=== PATIENT | female | born 2005 | race Two or more races ===

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

== ENCOUNTER 2023-03-30 12:09 | Emergency (ER) | payer MEDICAID, SELFPAY ==
[2023-03-30 12:12] VITALS: BP 182/94; PULSE 112; O2SAT 94
[2023-03-30 12:13] VITALS: BP 116/66; PULSE 113; RESP 20; TEMP 37.2; O2SAT 94; BMI 35.4
[2023-03-30] MEDS: Ibuprofen 400 MG TABLET PO (12:58)
[2023-03-30] MEDS: Acetaminophen 325 MG TABLET 975 MG PO (12:58)
[2023-03-30] MEDS: Throat Lozenge, Medicated LOZENGE 1 LOZENGE MUCOUS MEM (12:58)
[2023-03-30 13:00] LABS: COVID-19 Test Negative (Negative); IDNOW Serial# 9DB6401D; IDNOW Serial# BCCEAD1C; Influenza A Negative (Negative); Influenza B2 Negative (Negative)
[2023-03-30 13:12] LABS: IDNOW Serial# 08D9AD1C; Strep A Nucleic Acid Negative (Negative)
--- NOTE | 2023-03-30 14:57 | ED_ITS ---
HPI - General Adult General Chief complaint: Nausea/Vomiting/Diarrhea Stated complaint: WEAK,DIFF BREATHING W/VOMITING,ABD PAIN X'S 2DAYS Time Seen by Provider: 03/30/23 12:25 Source: patient Mode of arrival: ambulatory History of Present Illness HPI narrative: 17-year-old female with presentation for sore throat, cough, nausea and vomiting for the past 2 days but states that she has been feeling unwell for approximately 5-6 days. Related Data Previous Rx's Medication Instructions Recorded ibuprofen 600 mg tablet 600 mg PO Q6H PRN pain #30 tabs 01/10/21 albuterol sulfate 90 mcg/actuation 2 puff inhalation RQ4H PRN 07/09/21 aerosol inhaler (Ventolin HFA) shortness of breath or wheeze 30 days #1 g duloxetine 30 mg capsule,delayed 30 mg PO DAILY 30 days #30 caps 07/09/21 release ferrous sulfate 324 mg (65 mg 324 mg PO DAILY 30 days #30 tabs 07/09/21 iron) tablet,delayed release prazosin 1 mg capsule 4 mg PO BEDTIME 30 days #120 caps 07/09/21 quetiapine 50 mg tablet 50 mg PO BEDTIME 30 days #30 tabs 07/09/21 ondansetron 4 mg disintegrating 4 mg PO Q8H PRN nausea and 03/30/23 tablet vomiting 4 days #10 tabs Allergies Allergy/AdvReac Type Severity Reaction Status Date / Time No Known Allergies Allergy Verified 01/10/21 12:24 Review of Systems Review of Systems: Pertinent positives and negatives as stated in the in the HPI [facility] Past Medical History Source: nursing notes reviewed Medical History Hidradenitis suppurativa Chronic pain Chronic abdominal pain History of COVID-19 Asthma Family History Family History Other Diabetes Social History Social History Household Members: Other Household Members Other:: Aunt, uncle and 3 cousins Housing: House Do you presently have visiting nurse or other home services: No Patient Tobacco Use Status: Never used Tobacco e-Cigarette/Vaping Use: Never Used Second Hand Smoke Exposure: No Substance Use Type: Marijuana Advance Directives: No service: No Sexual orientation: Did not discuss. Physical Exam ED Vital Signs: Vital Signs - 24 hr 03/30/23 12:13 Temperature 98.9 F Pulse Rate 113 H Respiratory Rate 20 Blood Pressure 116/66 Pulse Oximetry 94 Oxygen Delivery Method Room Air BMI result Body Mass Index 35.4 VITAL SIGNS: Reviewed. GENERAL: Well developed, well nourished, in no acute distress. HEAD: Normocephalic/atraumatic EYES: PERRLA, EOMI EARS: Ext canals without abnormality, TMs non-bulging and non-erythematous NOSE: Nares patent bilateral OROPHARYNX: no oral lesions noted, posterior pharynx clear and erythematous with noted tonsillar enlargement/erythema but no exudate NECK: Supple, no adenopathy LUNGS: Normal breath sounds. No adventitious sounds or accessory muscle use. SpO2<94> CARDIOVASCULAR: Regular rate and rhythm without noted murmurs ABDOMEN: Soft, non-tender, non-distended with bowel sounds. MUSCULOSKELETAL: No tenderness, deformities, or effusions noted on gross inspection. EXTREMITIES: No cyanosis, clubbing or edema. SKIN: Inspection of the skin reveals no rashes NEUROLOGIC: Alert and oriented x 4. Strength and sensation to light touch were grossly intact x 4. Medications Administered Discontinued Medications Generic Name Dose Route Start Last Admin Trade Name Freq PRN Reason Stop Dose Admin Acetaminophen 975 mg 03/30/23 12:52 03/30/23 12:58 Acetaminophen 325 Mg Tablet PO 03/30/23 12:53 975 mg ONCE ONE Administration Benzocaine 1 lozenge 03/30/23 12:52 03/30/23 12:58 Throat Lozenge, Medicated Lozenge MUCOUS MEM 03/30/23 12:53 1 lozenge ONCE ONE Administration Ibuprofen 400 mg 03/30/23 12:52 03/30/23 12:58 Ibuprofen 400 Mg Tablet PO 03/30/23 12:53 400 mg ONCE ONE Administration Medical Decision Making Medical Decision Making MDM Narrative: 17-year-old female with history and clinical presentation, DDX: Viral syndrome, COVID/influenza/strep Patient received combination analgesics as well as Cepacol for body aches and throat pain and also received Zofran for her reported nausea. I reviewed all viral testing results which are negative for COVID and influenza, strep testing is negative, no clinical suspicion for peritonsillar abscess, patient is afebrile. On clinical exam there is no evidence of wheezing or tachypnea and patient is oxygenating well on room air. I discussed with the patient that she likely has a viral infection and I have recommended that she continue with [id number] analgesics as well as Cepacol and that I will send a prescription for Zofran. Differential Diagnosis Differential Diagnoses: The differential diagnosis associated with the presentation includes Please see the discussion above Admission/Observation Consideration of admission/observation: Escalation of care including admission/observation considered Please see the discussion above Lab Data MDM Lab Attestation statement: I reviewed the patient's lab results. Please see the discussion above Labs: Lab Results 03/30/23 03/30/23 Range/Units 12:33 13:00 COVID-19 (SUDHIR) Negative (Negative) COVID-19 Clin Com See Note Influenza Type A (DAVID) Negative (Negative) Influenza Type B (DAVID) Negative (Negative) Influenza A & B Note See Note S. pyogenes GrpA DAVID Negative (Negative) External Record Review External record reviewed: Outpatient record and Prior outpatient labs Discharge Plan Discharge Clinical Impression: Viral syndrome, Pharyngitis Patient Disposition: Home, Self-Care Instructions: Pharyngitis (ED), Viral Syndrome (ED) Additional Instructions: 1. Continue to use Tylenol/ibuprofen as needed for body aches, headaches, temperatures greater than 100.4. Get plenty of rest and drink plenty of fluids. 2. I highly recommend [id number] Sucrets or Cepacol for relief of sore throat discomfort. I have sent a prescription for antinausea medication to the pharmacy on . 3. Establish care with a primary care provider at your earliest convenience. Return to the ER for any worsening symptoms. Prescriptions: New ondansetron 4 mg tablet,disintegrating 4 mg PO Q8H PRN (Reason: nausea and vomiting) 4 Days Qty: 10 0RF No Action ibuprofen 600 mg tablet 600 mg PO Q6H PRN (Reason: pain) Qty: 30 0RF prazosin 1 mg Capsule 4 mg PO BEDTIME 30 Days Qty: 120 0RF Protocol: Hold for SBP< HOLD for SBP < : 90 albuterol sulfate [Ventolin HFA] 90 mcg/actuation Hfa Aerosol Inhaler 2 puff inhalation RQ4H PRN (Reason: shortness of breath or wheeze) 30 Days Qty: 1 0RF duloxetine 30 mg Capsule,Delayed Release(Dr/Ec) 30 mg PO DAILY 30 Days Qty: 30 0RF quetiapine 50 mg Tablet 50 mg PO BEDTIME 30 Days Qty: 30 0RF ferrous sulfate 324 mg (65 mg iron) Tablet,Delayed Release (Dr/Ec) 324 mg PO DAILY 30 Days Qty: 30 0RF
[2023-03-30] MEDS: Ondansetron ODT 4 MG TAB.RAPDIS TRANSLINGU (15:21)
== END 2023-03-30 15:46 | disposition home or self-care (01) ==
PROVIDERS: Emergency Provider Student in an Organized Health Care Education/Training Program
DX: J02.9 Acute pharyngitis, unspecified (principal); B34.9 Viral infection, unspecified; Z11.52 Encounter for screening for COVID-19
CPT/HCPCS: 87502; 87635; 87651; 99283

== ENCOUNTER 2023-07-06 11:14 | Outpatient (REF) | payer MEDICAID, SELFPAY ==
[2023-07-06 15:27] LABS: CT PCR NOT DETECTED (Not Detect.); NG PCR NOT DETECTED (Not Detect.)
== END 2023-07-06 11:15 | disposition home or self-care (01) ==
LOC: HO.HHCL 11:14
PROVIDERS: Visit Provider Family Medicine
DX: R52 Pain, unspecified (principal); E66.9 Obesity, unspecified; Z11.3 Encounter for screening for infections with a predominantly sexual mode of transmission
CPT/HCPCS: 0353U

== ENCOUNTER 2023-07-31 13:44 | Outpatient (REF) | payer MEDICAID, SELFPAY | END 2023-07-31 13:45 | disposition home or self-care (01) | LOC: HO.HHCL 13:44 | PROVIDERS: Visit Provider Family Medicine | DX: Z13.89 Encounter for screening for other disorder (principal) ==

== ENCOUNTER 2023-08-11 08:06 | Outpatient (REF) | payer MEDICAID, SELFPAY ==
[2023-08-11 08:47] LABS: MANUAL DIFF FLAG NO
[2023-08-11 09:12] LABS: Basophils Percent Auto 0.3 % (0-2); Eosinophils Absolute Auto 0.1 X10*3/uL (0.0-0.4); Eosinophils Percent Auto 1.7 % (0-4); Hematocrit 38.3 % (37.0-47.0); Hemoglobin 13.2 g/dl (12.0-16.0); Imm Gran Abs Auto 0.01 X10*3/uL (0.00-0.03); Imm Gran Pct Auto 0.2 % (0.0-0.4); Lymphocytes Percent Auto 15.5 % (20-40); Mean Corpuscular HGB Conc 34.5 g/dl (31.0-35.0); Mean Corpuscular Hemoglobin 31.1 pg (27.0-33.0); Mean Corpuscular Volume 90.3 fL (80.0-98.0); Mean Platelet Volume 9.3 fL (9.4-12.3); Monocytes Absolute Auto 0.5 X10*3/uL (0.1-1.2); Monocytes Percent Auto 7.8 % (2-11); Neutrophils Absolute Auto 4.7 x10*3/uL (2.0-8.3); Neutrophils Percent Auto 74.5 % (45-73); Platelet Count 258 X10*3/uL (160-400); Red Blood Count 4.24 X10*6/uL (4.20-5.50); White Blood Count 6.3 X10*3/uL (4.8-10.8)
[2023-08-11 09:19] LABS: Estimated Average Glucose 85 mg/dL; Hemoglobin A1c % 4.6 % (<6.0)
[2023-08-11 09:48] LABS: Rheumatoid Factor < 13.0 IU/mL (<15.0)
[2023-08-11 09:50] LABS: Erythrocyte Sedimentation Rate 16 MM/HR (0-20)
[2023-08-11 09:55] LABS: Alanine Aminotransferase 17 U/L (0-31); Albumin Level 4.2 g/dL (3.5-5.0); Alkaline Phosphatase 47 U/L (39-117); Anion Gap 14 (12-20); Aspartate Amino Transferase 13 U/L (5-31); Bilirubin Direct 0.2 mg/dL (0.0-0.5); Bilirubin Total 0.6 mg/dL (0.0-1.0); Blood Urea Nitrogen 9 mg/dL (9-16); C Reactive Protein 0.55 mg/dL (< or = 0.50); Calcium 9.9 mg/dL (8.4-10.2); Carbon Dioxide 22 mmol/L (22-29); Chloride 108 mmol/L (96-108); Cholesterol 135 mg/dL (<200); Estimated Glomerular Filt Rate > 60; Glucose Random 86 mg/dL (60-115); HDL Cholesterol 38 mg/dL (>40); LDL Cholesterol Calculated 87 mg/dL (<100); Magnesium 1.9 mg/dL (1.6-2.6); Potassium 4.1 mmol/L (3.3-5.1); Sodium 140 mmol/L (135-145); Total Protein 7.7 g/dL (6.5-8.0); Triglycerides 50 mg/dL (<150)
[2023-08-11 10:02] LABS: ~HepC Num1 0.38 S/CO (0.00-0.79); ~Hepatitis C Antibody Nonreactive (Nonreactive)
[2023-08-11 10:11] LABS: TSH reflex Free T4 1.11 uIU/mL (0.32-4.0)
[2023-08-13 06:44] LABS: RPR Rapid Plasma Reagin NON-REACTIVE (NON-REACTIVE)
[2023-08-14 12:59] LABS: Anti Nuclear Antibody Screen NEGATIVE (NEGATIVE)
[2023-08-14 18:29] LABS: HIV RNA PCR Qn Copies Not Detected Copies/mL; HIV RNA PCR Qn Log Copies Not Detected Log cps/mL
== END 2023-08-11 08:07 | disposition home or self-care (01) ==
LOC: HO.LAB 08:06
PROVIDERS: PCP Family Medicine; Visit Provider Family Medicine
DX: Z11.3 Encounter for screening for infections with a predominantly sexual mode of transmission (principal); R52 Pain, unspecified; E66.9 Obesity, unspecified
CPT/HCPCS: 36415; 80048; 80061; 80076; 82306; 83036; 83735; 84443; 85025; 85652; 86038; 86140; 86431; 86592; 86803; 87536; 87900

== ENCOUNTER 2023-09-13 11:32 | Emergency (ER) | payer MEDICAID, SELFPAY ==
--- NOTE | ~2023-09-13 | CT_ITS ---
Examination: CT cervical spine and thoracic spine x-rays. TECHNIQUE: Low back pain and neck pain. Unable to move. COMPARISON: None. TECHNIQUE: Thoracic spine x-rays 3 views. 3 mm thin axial and reformatted 2 mm thin sagittal and coronal images of cervical spine were obtained. DLP 507. This CT examination was performed using dose optimization technique as appropriate, variously including the following: Automated exposure control Adjustment of MA and/or KV according to patient size(this includes techniques or standardized protocols for targeted exams where dose is matched to indication/reason for exam; extremities or head. Use of iterative reconstruction techniques. FINDINGS: Thoracic spine x-ray: There is normal thoracic kyphosis. The vertebral heights, alignment and disc heights are normal. No visible acute fracture, dislocation or subluxation seen. The paravertebral soft tissues are normal. No aggressive lytic or sclerotic process seen. CT Cervical spine: There is mild straightening of cervical lordosis. The vertebral heights, alignment and disc heights are normal. No visible acute fracture, dislocation or subluxation seen. The neural foramina are bilaterally patent. The prevertebral and paravertebral soft tissues are normal. CT/CT cervical spine wo IV con IMPRESSION: Unremarkable dorsal spine x-rays. Unremarkable CT cervical spine without contrast.
--- NOTE | ~2023-09-13 | CT_ITS ---
Examination: Lumbar spine and CT brain without contrast CLINICAL INDICATION: Low back pain and head pain. COMPARISON: None. TECHNIQUE: 5 mm thin axial and reformatted 2 mm thin sagittal and coronal images of lumbar spine were obtained. DLP 726.[address] examination was performed using dose optimization technique as appropriate, variously including the following: Automated exposure control Adjustment of MA and/or KV according to patient size(this includes techniques or standardized protocols for targeted exams where dose is matched to indication/reason for exam; extremities or head. Use of iterative reconstruction techniques. Lumbar spine 3 views. FINDINGS: Lumbar spine: There is maintained lumbar lordosis. The vertebral heights, alignment and disc heights are normal. No visible acute fracture, dislocation or subluxation seen. There is an IUD within the pelvis. There is scattered stool in the colon. Brain: There is no acute intra-axial, extra-axial bleed, masses or midline shift. There is no acute infarction evolution. There is no edema. The morillo to white matter differentiation is maintained normal. The lateral ventricles are symmetrical in size and configuration without enlargement. Bone windows reveal no calvarial abnormality. There is no scalp soft tissue abnormality. CT/CT head/brain wo IV con IMPRESSION: Unremarkable CT brain and lumbar spine. Unremarkable lumbar spine exam.
[2023-09-13 11:37] VITALS: BP 124/90; PULSE 92; O2SAT 99
[2023-09-13 11:49] VITALS: BP 112/70; PULSE 84; RESP 16; TEMP 37; O2SAT 96; BMI 33.7
[2023-09-13] MEDS: predniSONE 20 MG TABLET 60 MG PO (12:04)
[2023-09-13] MEDS: Acetaminophen 325 MG TABLET 975 MG PO (12:04)
[2023-09-13] MEDS: Cyclobenzaprine HCl 10 MG TABLET PO (12:04)
--- NOTE | 2023-09-13 12:05 | ED.GENADULT ---
HPI - General Adult General Chief complaint: Back Pain/Injury Stated complaint: NECK AND SPINE PAIN Time Seen by Provider: 09/13/23 17:48 Source: patient Mode of arrival: EMS Limitations: no limitations History of Present Illness ED Provider: bacilio SOUZA narrative: Patient's history of depression anxiety been having off and on upper back pain for long time taking Flexeril for muscle relaxation comes here as for last few days pain is getting worse no paresthesia no injury no fever no chills no sore throat Related Data Previous Rx's ?Medication ?Instructions ?Recorded ibuprofen 600 mg tablet 600 mg PO Q6H PRN pain #30 tabs 01/10/21 albuterol sulfate 90 mcg/actuation 2 puff inhalation RQ4H PRN 07/09/21 aerosol inhaler (Ventolin HFA) shortness of breath or wheeze 30 days #1 g duloxetine 30 mg capsule,delayed 30 mg PO DAILY 30 days #30 caps 07/09/21 release ferrous sulfate 324 mg (65 mg 324 mg PO DAILY 30 days #30 tabs 07/09/21 iron) tablet,delayed release prazosin 1 mg capsule 4 mg PO BEDTIME 30 days #120 caps 07/09/21 quetiapine 50 mg tablet 50 mg PO BEDTIME 30 days #30 tabs 07/09/21 ondansetron 4 mg disintegrating 4 mg PO Q8H PRN nausea and 03/30/23 tablet vomiting 4 days #10 tabs ibuprofen 600 mg tablet 600 mg PO Q6H PRN fever or pain 09/13/23 #30 tabs Allergies Allergy/AdvReac Type Severity Reaction Status Date / Time No Known Allergies Allergy Verified 09/13/23 11:56 Review of Systems Review of Systems: Yes all other systems are reviewed and are negative PMFSH Past Medical History Medical History Hidradenitis suppurativa Chronic pain Chronic abdominal pain History of COVID-19 Asthma Family History Family History Other Diabetes Social History Social History Household Members: Other Household Members Other:: Aunt, uncle and 3 cousins Housing: House Do you presently have visiting nurse or other home services: No Patient Tobacco Use Status: Never used Tobacco e-Cigarette/Vaping Use: Never Used Second Hand Smoke Exposure: No Substance Use Type: Marijuana Advance Directives: Yes Advance Directives on File: Yes Advance Directives Date on File: 08/11/23 Do you have a plan to hurt others: No Plan service: No Sexual orientation: Did not discuss. Physical Exam ED Vital Signs: Vital Signs - 24 hr 09/13/23 11:49 09/13/23 17:33 09/13/23 18:16 Temperature 98.6 F 98.4 F Pulse Rate 84 82 82 Respiratory Rate 16 16 19 Blood Pressure 112/70 112/67 108/62 Pulse Oximetry 96 98 98 Oxygen Delivery Method Room Air Room Air Room Air 09/13/23 18:25 Temperature 98.4 F Pulse Rate 82 Respiratory Rate 19 Blood Pressure 108/62 Pulse Oximetry 98 Oxygen Delivery Method Room Air BMI result Body Mass Index 33.7 Appearance: Alert. Oriented X3. No acute distress. Eyes: PERRLA, No Nystagmus ENT: Pharynx normal. Oral Mucosa moist Neck: Normal inspection. Neck supple. Diffuse paraspinal muscle spasm involving the upper back also CVS: Normal heart rate and rhythm. Pulses normal. Respiratory: No respiratory distress. Equal air entry bilateral, no wheezing/rales/rhonchi Abdomen: Soft and nontender. Bowel sounds are present, no mass palpable, no CVA tenderness Skin: Skin warm and dry. Normal skin color. Normal skin turgor. Extremities: No lower extremity edema. No calf tenderness Neuro: Oriented X 3. No motor deficit. No sensory deficit. Course Course Course Narrative: RME: Done by NAVI Powell. 18 yold female presents to the ED for neck and rest of spine pain for the past 4 days. patient states inability to turn neck. Patient denies any trauma. Patient denies any urinary/bowl incontinence. Patient states able to walk on a little bit from room to bathroom. Patient denies photophobia. On exam spinal tenderness from cervical spine all the way lumbar spine. patient denies heaache. Decreased movement to turn neck laterally and medially. Difficulty flexing chin to neck. Labs ordered. Images ordered. Spoke with charge Nurse for patient to get a bed. Witnessed patient go from wheelchair and walking to the bathroom and unto the toilet moving upper and lower extremties.. 4:02pm: Patient is drinking water eating food. Patient not in distress. Patient is moving neck in waiting room. Medications Administered Discontinued Medications Generic Name Dose Route Start Last Admin Trade Name Alphonso PRN Reason Stop Dose Admin Acetaminophen 975 mg 09/13/23 11:56 09/13/23 12:04 Acetaminophen 325 Mg Tablet PO 09/13/23 11:57 975 mg ONCE ONE Administration Cyclobenzaprine HCl 10 mg 09/13/23 11:56 09/13/23 12:04 Cyclobenzaprine Hcl 10 Mg Tablet PO 09/13/23 11:57 10 mg ONCE ONE Administration Prednisone 60 mg 09/13/23 11:56 09/13/23 12:04 Prednisone 20 Mg Tablet PO 09/13/23 11:57 60 mg ONCE ONE Administration Medical Decision Making Medical Decision Making [facility] Narrative: Patient with chronic upper back pain and neck pain with history of depression anxiety likely fibromyalgia patient is taking Flexeril given by PCP for a while will advised to take ibuprofen and follow with PCP for further management CT scan of the head and C-spine done by triage provider which was negative labs are stable Lab Data [facility] Lab Attestation statement: I reviewed the patient's lab results. 09/13/23 12:22 09/13/23 12:22 Labs: Lab Results 09/13/23 09/13/23 Range/Units 12:21 12:22 WBC 5.8 (4.8-10.8) X10*3/uL RBC 4.10 L (4.20-5.50) X10*6/uL Hgb 12.8 (12.0-16.0) g/dl Hct 37.2 (37.0-47.0) % MCV 90.7 (80.0-98.0) fL MCH 31.2 (27.0-33.0) pg MCHC 34.4 (31.0-35.0) g/dl RDW 12.0 (11.0-16.0) % Plt Count 243 (160-400) X10*3/uL MPV 9.3 L (9.4-12.3) fL Immature Gran % (Auto) 0.5 H (0.0-0.4) % Neut % (Auto) 70.3 (45-73) % Lymph % (Auto) 17.5 L (20-40) % [place] % (Auto) 8.8 (2-11) % Eos % (Auto) 2.4 (0-4) % Baso % (Auto) 0.5 (0-2) % Lymph # (Auto) 1.0 L (1.2-4.9) X10*3/uL [place] # (Auto) 0.5 (0.1-1.2) X10*3/uL Eos # (Auto) 0.1 (0.0-0.4) X10*3/uL Baso # (Auto) 0.0 (0.0-0.2) X10*3/uL Abs Immat Gran (auto) 0.03 (0.00-0.03) X10*3/uL Absolute Neuts (auto) 4.1 (2.0-8.3) x10*3/uL Absolute Nucleated RBC 0.000 (0.0-0.012) X10*3/uL Nucleated RBC % (auto) 0.0 (0.0-0.2) /100WBC ESR 17 (0-20) MM/HR Sodium 138 (135-145) mmol/L Potassium 4.0 (3.3-5.1) mmol/L Chloride 111 H (96-108) mmol/L Carbon Dioxide 22 (22-29) mmol/L Anion Gap 9 L (12-20) BUN 8 L (9-16) mg/dL Creatinine 0.65 (0.5-1.4) mg/dL Estim Creat Clear Calc 182.5 Estimated GFR > 60 Random Glucose 93 (60-115) mg/dL Calcium 9.4 (8.4-10.2) mg/dL Total Bilirubin 0.6 (0.0-1.0) mg/dL AST 16 (5-31) U/L ALT 19 (0-31) U/L Alkaline Phosphatase 42 (39-117) U/L C-Reactive Protein 0.26 (< or = 0.50) mg/dL Total Protein 7.4 (6.5-8.0) g/dL Albumin 4.0 (3.5-5.0) g/dL Beta HCG, Quant Cancelled < 2 Urine Color Yellow Urine Appearance Cloudy Urine pH 7.5 (5.0-9.0) Ur Specific [place] 1.020 (1.005-1.025) Urine Protein Negative (Neg-Trace) mg/dL Urine Glucose (UA) Negative (Negative) mg/dL Urine Ketones Negative (Negative) mg/dL Urine Blood Negative (Negative) Urine Nitrite Negative (Negative) Ur Leukocyte Esterase Negative (Negative) Discharge Plan Discharge Clinical Impression: Fibromyalgia Patient Disposition: Home, Self-Care Instructions: Fibromyalgia (ED) Additional Instructions: Like You have fibromyalgia Continue your of muscle relaxant and take ibuprofen Try to relax Prescriptions: New ibuprofen 600 mg tablet 600 mg PO Q6H PRN (Reason: fever or pain) Qty: 30 0RF No Action ibuprofen 600 mg tablet 600 mg PO Q6H PRN (Reason: pain) Qty: 30 0RF prazosin 1 mg Capsule 4 mg PO BEDTIME 30 Days Qty: 120 0RF Protocol: Hold for SBP< HOLD for SBP < : 90 albuterol sulfate [Ventolin HFA] 90 mcg/actuation Hfa Aerosol Inhaler 2 puff inhalation RQ4H PRN (Reason: shortness of breath or wheeze) 30 Days Qty: 1 0RF duloxetine 30 mg Capsule,Delayed Release(Dr/Ec) 30 mg PO DAILY 30 Days Qty: 30 0RF quetiapine 50 mg Tablet 50 mg PO BEDTIME 30 Days Qty: 30 0RF ferrous sulfate 324 mg (65 mg iron) Tablet,Delayed Release (Dr/Ec) 324 mg PO DAILY 30 Days Qty: 30 0RF ondansetron 4 mg tablet,disintegrating 4 mg PO Q8H PRN (Reason: nausea and vomiting) 4 Days Qty: 10 0RF Interventions: ED Discharge Assessment Last Done: 09/13/23 18:25 Discharge Date/Time: 09/13/23 18:26 Print Language: Polish
[2023-09-13 12:27] LABS: MANUAL DIFF FLAG NO
[2023-09-13 12:36] LABS: Basophils Percent Auto 0.5 % (0-2); Eosinophils Absolute Auto 0.1 X10*3/uL (0.0-0.4); Eosinophils Percent Auto 2.4 % (0-4); Hematocrit 37.2 % (37.0-47.0); Hemoglobin 12.8 g/dl (12.0-16.0); Imm Gran Abs Auto 0.03 X10*3/uL (0.00-0.03); Imm Gran Pct Auto 0.5 % (0.0-0.4); Lymphocytes Percent Auto 17.5 % (20-40); Mean Corpuscular HGB Conc 34.4 g/dl (31.0-35.0); Mean Corpuscular Hemoglobin 31.2 pg (27.0-33.0); Mean Corpuscular Volume 90.7 fL (80.0-98.0); Mean Platelet Volume 9.3 fL (9.4-12.3); Monocytes Absolute Auto 0.5 X10*3/uL (0.1-1.2); Monocytes Percent Auto 8.8 % (2-11); Neutrophils Absolute Auto 4.1 x10*3/uL (2.0-8.3); Neutrophils Percent Auto 70.3 % (45-73); Platelet Count 243 X10*3/uL (160-400); White Blood Count 5.8 X10*3/uL (4.8-10.8)
[2023-09-13 12:36] LABS: Appearance Urine Cloudy; Color Urine Yellow; Glucose Urine UA Negative (Negative); Leukocyte Esterase Urine Negative (Negative); Nitrite Urine Negative (Negative); PH 7.5 (5.0-9.0); Urine Blood Negative (Negative); Urine Ketones Negative (Negative); Urine Protein Negative (Neg-Trace)
[2023-09-13 12:49] LABS: Alanine Aminotransferase 19 U/L (0-31); Alkaline Phosphatase 42 U/L (39-117); Anion Gap 9 (12-20); Aspartate Amino Transferase 16 U/L (5-31); Bilirubin Total 0.6 mg/dL (0.0-1.0); Blood Urea Nitrogen 8 mg/dL (9-16); C Reactive Protein 0.26 mg/dL (< or = 0.50); Calcium 9.4 mg/dL (8.4-10.2); Carbon Dioxide 22 mmol/L (22-29); Chloride 111 mmol/L (96-108); Creatinine Clr Calc Pharmacy 182.5; Estimated Glomerular Filt Rate > 60; Glucose Random 93 mg/dL (60-115); Sodium 138 mmol/L (135-145); Total Protein 7.4 g/dL (6.5-8.0)
[2023-09-13 12:52] LABS: HCG Quantitative < 2 mIU/mL
[2023-09-13 13:16] LABS: Erythrocyte Sedimentation Rate 17 MM/HR (0-20)
[2023-09-13 17:33] VITALS: BP 112/67; PULSE 82; RESP 16; O2SAT 98
[2023-09-13 18:16] VITALS: BP 108/62; PULSE 82; RESP 19; TEMP 36.9; O2SAT 98
[2023-09-13 18:25] VITALS: BP 108/62; PULSE 82; RESP 19; TEMP 36.9; O2SAT 98
== END 2023-09-13 18:26 | disposition home or self-care (01) ==
PROVIDERS: Physician Assistant; Emergency Provider Internal Medicine; PCP Family Medicine
DX: M79.7 Fibromyalgia (principal)
CPT/HCPCS: 36415; 70450; 72072; 72100; 72125; 80053; 81003; 84702; 85025; 85652; 86140; 99284

== ENCOUNTER 2023-10-02 10:33 | Outpatient (REF) | payer MEDICAID, SELFPAY ==
--- NOTE | ~2023-10-02 | XR_ITS ---
EXAMINATION: XR LEFT WRIST XR LEFT HAND CLINICAL INFORMATION: Left hand and wrist pain. COMPARISON: 04/30/2013 TECHNIQUE: PA, lateral and oblique views of the left breast were obtained. PA, lateral and oblique views of the left hand were obtained. FINDINGS: Alignment is anatomic. Joint spaces are maintained. No bony erosions. No displaced fracture or dislocation. No focal radiographic soft tissue swelling. XR/XR wrist LT min 3V IMPRESSION: No acute abnormality.
--- NOTE | ~2023-10-02 | XR_ITS ---
EXAMINATION: XR LEFT WRIST XR LEFT HAND CLINICAL INFORMATION: Left hand and wrist pain. COMPARISON: 04/30/2013 TECHNIQUE: PA, lateral and oblique views of the left breast were obtained. PA, lateral and oblique views of the left hand were obtained. FINDINGS: Alignment is anatomic. Joint spaces are maintained. No bony erosions. No displaced fracture or dislocation. No focal radiographic soft tissue swelling. XR/XR hand LT min 3V IMPRESSION: No acute abnormality.
== END 2023-10-02 10:34 | disposition home or self-care (01) ==
LOC: HO.HHCX 10:33
PROVIDERS: Visit Provider Registered Nurse
DX: M25.532 Pain in left wrist (principal); M79.642 Pain in left hand
CPT/HCPCS: 73110; 73130

== ENCOUNTER 2023-11-20 21:40 | Emergency (ER) | payer MEDICAID, SELFPAY ==
--- NOTE | ~2023-11-20 | XR_ITS ---
EXAMINATION: XR ANKLE, LEFT CLINICAL INFORMATION: Chronic pain COMPARISON: None available. TECHNIQUE: AP, lateral, and mortise views of the left ankle. FINDINGS: No fracture. Alignment is anatomic. No erosions. Joint spaces are maintained. Soft tissues are normal. XR/XR ankle LT min 3V IMPRESSION: Normal left ankle radiographs.
[2023-11-20 22:00] VITALS: BP 110/70; PULSE 82; RESP 16; TEMP 37.2; O2SAT 95; BMI 32.5
[2023-11-20 22:20] LABS: Basophils Percent Auto 0.6 % (0-2); Eosinophils Absolute Auto 0.1 X10*3/uL (0.0-0.4); Eosinophils Percent Auto 1.5 % (0-4); Hematocrit 36.8 % (37.0-47.0); Hemoglobin 12.6 g/dl (12.0-16.0); Imm Gran Abs Auto 0.01 X10*3/uL (0.00-0.03); Imm Gran Pct Auto 0.1 % (0.0-0.4); Lymphocytes Absolute Auto 1.6 X10*3/uL (1.2-4.9); Lymphocytes Percent Auto 22.2 % (20-40); MANUAL DIFF FLAG NO; Mean Corpuscular HGB Conc 34.2 g/dl (31.0-35.0); Mean Corpuscular Hemoglobin 31.4 pg (27.0-33.0); Mean Corpuscular Volume 91.8 fL (80.0-98.0); Mean Platelet Volume 8.6 fL (9.4-12.3); Monocytes Absolute Auto 0.5 X10*3/uL (0.1-1.2); Neutrophils Absolute Auto 4.9 x10*3/uL (2.0-8.3); Neutrophils Percent Auto 68.6 % (45-73); Platelet Count 234 X10*3/uL (160-400); Red Blood Count 4.01 X10*6/uL (4.20-5.50); White Blood Count 7.1 X10*3/uL (4.8-10.8)
[2023-11-20 22:34] LABS: Anion Gap 15 (12-20); Blood Urea Nitrogen 14 mg/dL (9-16); Calcium 9.5 mg/dL (8.4-10.2); Carbon Dioxide 21 mmol/L (22-29); Chloride 110 mmol/L (96-108); Creatinine Clr Calc Pharmacy 139.2; Estimated Glomerular Filt Rate > 60; Glucose Random 91 mg/dL (60-115); Potassium 4.3 mmol/L (3.3-5.1); Sodium 142 mmol/L (135-145)
[2023-11-20 22:59] VITALS: BP 100/55; PULSE 82; RESP 16; TEMP 36.6; O2SAT 97
--- NOTE | 2023-11-20 23:12 | MHC.EDTECH ---
This pct just assumed care of pt ,urine sample collected and sent to lab ,Patient is talking on the phone ,And her friend at bedside ,Call du within Pt reach .
[2023-11-20 23:19] LABS: Appearance Urine Cloudy; Color Urine Yellow; Glucose Urine UA Negative (Negative); Leukocyte Esterase Urine Trace (Negative); Nitrite Urine Negative (Negative); Specific Gravity - Urine 1.025 (1.005-1.025); UMIC TRIGGER UACC YES; Urine Blood Negative (Negative); Urine Ketones Trace mg/dL (Negative); Urine Protein Negative (Neg-Trace)
[2023-11-20 23:24] LABS: Bacteria Urine 1+ (None Seen); Hyaline Casts Urine 0-2 /LPF (0-2); RBC Urine 0-2 /HPF (0-2); UACC Culture Trigger YES; UPreg QC Valid YES; Urine Pregnancy NEGATIVE (NEGATIVE)
[2023-11-20 23:29] LABS: Amphetamine Screen Urine Not Detected (Not Detect); Barbiturates, Urine Not Detected (Not Detect); Benzodiazepines Screen Urine Not Detected (Not Detect); Buprenorphine Scr Not Detected (Not Detect); Cannabinoid Screen Urine POSITIVE (Not Detect); Cocaine Screen Urine Not Detected (Not Detect); Fentanyl, urine Not Detected (Not Detect); Methadone Screen, Urine Not Detected (Not Detect); Opiate Screen Urine Not Detected (Not Detect); Oxycodone Screen Urine Not Detected (Not Detect); Phencyclidine Screen Urine Not Detected (Not Detect)
--- NOTE | 2023-11-21 00:43 | ED_ITS ---
HPI - General Adult General Chief complaint: General Medical Stated complaint: Bi lateral knee pain, and L ankle pain Time Seen by Provider: 11/21/23 00:16 Source: patient Mode of arrival: ambulatory Limitations: no limitations History of Present Illness ED Provider: bacilio SOUZA narrative: Patient with multiple complaints complaining of headache with history of migraines for last 1 month also complaining of chronic pain in the left ankle after she had injured 2 years ago also has a chronic lesions in the lower abdominal wall which flares up off and on Related Data Previous Rx's ?Medication ?Instructions ?Recorded ibuprofen 600 mg tablet 600 mg PO Q6H PRN pain #30 tabs 01/10/21 albuterol sulfate 90 mcg/actuation 2 puff inhalation RQ4H PRN 07/09/21 aerosol inhaler (Ventolin HFA) shortness of breath or wheeze 30 days #1 g duloxetine 30 mg capsule,delayed 30 mg PO DAILY 30 days #30 caps 07/09/21 release ferrous sulfate 324 mg (65 mg 324 mg PO DAILY 30 days #30 tabs 07/09/21 iron) tablet,delayed release prazosin 1 mg capsule 4 mg PO BEDTIME 30 days #120 caps 07/09/21 quetiapine 50 mg tablet 50 mg PO BEDTIME 30 days #30 tabs 07/09/21 ondansetron 4 mg disintegrating 4 mg PO Q8H PRN nausea and 03/30/23 tablet vomiting 4 days #10 tabs ibuprofen 600 mg tablet 600 mg PO Q6H PRN fever or pain 09/13/23 #30 tabs zwobscokrt-tbmekwfuqbnje-mmzrkjmy 1 tab PO Q6H PRN haeadace #20 tabs 11/21/23 50 mg-325 mg-40 mg tablet doxycycline hyclate 100 mg tablet 100 mg PO BID #20 tabs 11/21/23 mupirocin 2 % topical ointment 1 appl topical BID #15 grams 11/21/23 Allergies Allergy/AdvReac Type Severity Reaction Status Date / Time Chocolate Allergy Severe Anaphylaxis Verified 11/20/23 22:07 Review of Systems 2 Review of Systems: Yes all other systems are reviewed and are negative PMFSH Past Medical History Medical History Hidradenitis suppurativa Chronic pain Chronic abdominal pain History of COVID-19 Asthma Family History Family History Other Diabetes Social History Social History Household Members: Other Household Members Other:: Aunt, uncle and 3 cousins Housing: House Do you presently have visiting nurse or other home services: No Alcohol intake: current Alcohol intake frequency: holidays/special occasions only Patient Tobacco Use Status: Never used Tobacco Smoked in Last 30 Days: No e-Cigarette/Vaping Use: Never Used Second Hand Smoke Exposure: No Use of substances other than those prescribed or required for medical reasons: Yes Substance Use Type: Marijuana Substance Use Frequency: Occasionally Advance Directives: Yes Advance Directives on File: Yes Advance Directives Date on File: 08/11/23 service: No Sexual orientation: Did not discuss. Physical Exam ED Vital Signs: Vital Signs - 24 hr 11/20/23 22:00 11/20/23 22:59 11/21/23 01:17 Temperature 98.9 F 97.8 F 97.9 F Pulse Rate 82 82 99 Respiratory Rate 16 16 16 Blood Pressure 110/70 100/55 L 114/50 L Pulse Oximetry 95 97 100 Oxygen Delivery Method Room Air Room Air Room Air BMI result Body Mass Index 32.5 Appearance: Alert. Oriented X3. No acute distress. Eyes: PERRLA, No Nystagmus ENT: Pharynx normal. Oral Mucosa moist no temporal artery tenderness Neck: Normal inspection. Neck supple. CVS: Normal heart rate and rhythm. Pulses normal. Respiratory: No respiratory distress. Equal air entry bilateral, no wheezing/rales/rhonchi Abdomen: Soft and nontender. Bowel sounds are present, no mass palpable, no CVA tenderness Skin: Skin warm and dry. Normal skin color. Normal skin turgor. Chronic lesions lower abdominal wall no pus discharge Extremities: No lower extremity edema. No calf tenderness mild tenderness left dorsum of the foot Neuro: Oriented X 3. Medications Administered Discontinued Medications Generic Name Dose Route Start Last Admin Trade Name Freq PRN Reason Stop Dose Admin Acetaminophen/Butalbital/Caffeine 1 tab 11/21/23 00:44 11/21/23 00:53 Butalb/Acetamin/Caff 50/325/40 Tablet PO 11/21/23 00:45 1 tab ONCE ONE Administration Doxycycline Monohydrate 100 mg 11/21/23 00:44 11/21/23 00:53 Doxycycline Monohydrate 100 Mg Capsule PO 11/21/23 00:45 100 mg ONCE ONE Administration Medical Decision Making Medical Decision Making [facility] Narrative: Patient likely with complex migraine with chronic wounds in the abdomen likely MRSA will prescribe doxycycline and Bactroban, x-ray negative for fracture Lab Data [facility] Lab Attestation statement: I reviewed the patient's lab results. 11/20/23 22:15 11/20/23 22:15 Labs: Lab Results 11/20/23 11/20/23 Range/Units 22:15 23:09 WBC 7.1 (4.8-10.8) X10*3/uL RBC 4.01 L (4.20-5.50) X10*6/uL Hgb 12.6 (12.0-16.0) g/dl Hct 36.8 L (37.0-47.0) % MCV 91.8 (80.0-98.0) fL MCH 31.4 (27.0-33.0) pg MCHC 34.2 (31.0-35.0) g/dl RDW 12.0 (11.0-16.0) % Plt Count 234 (160-400) X10*3/uL MPV 8.6 L (9.4-12.3) fL Immature Gran % (Auto) 0.1 (0.0-0.4) % Neut % (Auto) 68.6 (45-73) % Lymph % (Auto) 22.2 (20-40) % [place] % (Auto) 7.0 (2-11) % Eos % (Auto) 1.5 (0-4) % Baso % (Auto) 0.6 (0-2) % Lymph # (Auto) 1.6 (1.2-4.9) X10*3/uL [place] # (Auto) 0.5 (0.1-1.2) X10*3/uL Eos # (Auto) 0.1 (0.0-0.4) X10*3/uL Baso # (Auto) 0.0 (0.0-0.2) X10*3/uL Abs Immat Gran (auto) 0.01 (0.00-0.03) X10*3/uL Absolute Neuts (auto) 4.9 (2.0-8.3) x10*3/uL Absolute Nucleated RBC 0.000 (0.0-0.012) X10*3/uL Nucleated RBC % (auto) 0.0 (0.0-0.2) /100WBC Sodium 142 (135-145) mmol/L Potassium 4.3 (3.3-5.1) mmol/L Chloride 110 H (96-108) mmol/L Carbon Dioxide 21 L (22-29) mmol/L Anion Gap 15 (12-20) BUN 14 (9-16) mg/dL Creatinine 0.81 (0.5-1.4) mg/dL Estim Creat Clear Calc 139.2 Estimated GFR > 60 Random Glucose 91 (60-115) mg/dL Calcium 9.5 (8.4-10.2) mg/dL Urine Color Yellow Urine Appearance Cloudy Urine pH 6.0 (5.0-9.0) Ur Specific [place] 1.025 (1.005-1.025) Urine Protein Negative (Neg-Trace) mg/dL Urine Glucose (UA) Negative (Negative) mg/dL Urine Ketones Trace (Negative) mg/dL Urine Blood Negative (Negative) Urine Nitrite Negative (Negative) Ur Leukocyte Esterase Trace H (Negative) Urine RBC 0-2 (0-2) /HPF Urine WBC 6-10 H (0-5) /HPF Ur Squamous Epith Cells 11-20 (0-2) /HPF Urine Bacteria 1+ (None Seen) Hyaline Casts 0-2 (0-2) /LPF Urine Test NEGATIVE (NEGATIVE) Urine Opiates Screen Not Detected (Not Detect) Ur Buprenorphine Scrn Not Detected (Not Detect) ng/mL Ur Oxycodone Screen Not Detected (Not Detect) ng/mL Urine Methadone Screen Not Detected (Not Detect) ng/mL Urine Fentanyl Screen Not Detected (Not Detect) Ur Barbiturates Screen Not Detected (Not Detect) Ur Phencyclidine Scrn Not Detected (Not Detect) Ur Amphetamines Screen Not Detected (Not Detect) U Benzodiazepines Scrn Not Detected (Not Detect) Urine Cocaine Screen Not Detected (Not Detect) U Marijuana (THC) Screen POSITIVE H (Not Detect) Independent Interpretation I performed an independent interpretation of an: Plain X-Ray Radiology Impression Discussion of test interpretation with radiology: I have reviewed the radiologist's reading. Discharge Plan Discharge Clinical Impression: MRSA infection, Chronic pain Patient Disposition: Home, Self-Care Instructions: MRSA (Methicillin-Resistant Staphylococcus Aureus) (ED), Chronic Pain (ED) Additional Instructions: Likely have MRSA infection of the abdominal wall Your x-rays negative for fracture of the left ankle Headache is likely migraine Take medication as prescribed for headaches ointment as advised for chronic wounds and antibiotics Follow up with your PCP Prescriptions: New doxycycline hyclate 100 mg tablet 100 mg PO BID Qty: 20 0RF mupirocin 2 % ointment 1 appl topical BID Qty: 15 0RF xenfwsruig-cyziupjtzctis-bksn 50-325-40 mg tablet 1 tab PO Q6H PRN (Reason: haeadace) Qty: 20 0RF No Action ibuprofen 600 mg tablet 600 mg PO Q6H PRN (Reason: pain) Qty: 30 0RF prazosin 1 mg Capsule 4 mg PO BEDTIME 30 Days Qty: 120 0RF Protocol: Hold for SBP< HOLD for SBP < : 90 albuterol sulfate [Ventolin HFA] 90 mcg/actuation Hfa Aerosol Inhaler 2 puff inhalation RQ4H PRN (Reason: shortness of breath or wheeze) 30 Days Qty: 1 0RF duloxetine 30 mg Capsule,Delayed Release(Dr/Ec) 30 mg PO DAILY 30 Days Qty: 30 0RF quetiapine 50 mg Tablet 50 mg PO BEDTIME 30 Days Qty: 30 0RF ferrous sulfate 324 mg (65 mg iron) Tablet,Delayed Release (Dr/Ec) 324 mg PO DAILY 30 Days Qty: 30 0RF ondansetron 4 mg tablet,disintegrating 4 mg PO Q8H PRN (Reason: nausea and vomiting) 4 Days Qty: 10 0RF ibuprofen 600 mg tablet 600 mg PO Q6H PRN (Reason: fever or pain) Qty: 30 0RF Print Language: [place] Islander
[2023-11-21] MEDS: Butalb/Acetamin/Caff 50/325/40 TABLET 1 TAB PO (00:53)
[2023-11-21] MEDS: Doxycycline Monohydrate 100 MG CAPSULE PO (00:53)
[2023-11-21 01:17] VITALS: BP 114/50; PULSE 99; RESP 16; TEMP 36.6; O2SAT 100
--- NOTE | 2023-11-21 01:20 | MHC.EDTECH ---
Patient wound culture collected and sent to lab ,vitals taken .
[2023-11-21] MEDS: Bacitracin Oint 0.9 GM PACKET 1 APPL TOPICAL (01:51)
[2023-11-21 01:59] VITALS: BP 114/50; PULSE 99; RESP 16; TEMP 36.6; O2SAT 100
== END 2023-11-21 01:59 | disposition home or self-care (01) ==
PROVIDERS: Emergency Provider Internal Medicine; PCP Family Medicine
DX: S31.109D Unspecified open wound of abdominal wall, unspecified quadrant without penetration into peritoneal cavity, subsequent encounter (principal); B95.62 Methicillin resistant Staphylococcus aureus infection as the cause of diseases classified elsewhere; X58.XXXD Exposure to other specified factors, subsequent encounter; R51.9 Headache, unspecified; G89.29 Other chronic pain; R10.9 Unspecified abdominal pain; M25.572 Pain in left ankle and joints of left foot; Z79.899 Other long term (current) drug therapy
CPT/HCPCS: 36415; 73610; 80048; 80307; 81001; 81025; 85025; 87070; 87077; 87086; 87186; 87205; 99284

== ENCOUNTER 2023-12-25 13:49 | Emergency (ER) | payer SELFPAY ==
--- NOTE | ~2023-12-25 | XR_ITS ---
EXAMINATION: XR LEFT HAND/WRIST XR LUMBAR SPINE CLINICAL INFORMATION: Low back pain after fall. Left hand pain after trauma. COMPARISON: October 02, 2023 TECHNIQUE: 4 views of the left hand were obtained. 3 views of the lumbar spine were obtained. FINDINGS: Left hand: Alignment is anatomic. Joint spaces are maintained. No displaced fracture or dislocation. Lumbar spine: There are 5 nonrib-bearing lumbar vertebral bodies. Relative straightening of the lumbar lordosis. Minimal retrolisthesis of L5 on S1. Vertebral body heights and intervertebral disc spaces are maintained. Sacroiliac joints are intact. Intrauterine device projects over the pelvis. XR/XR lumbar spine 2-3V IMPRESSION: No acute abnormality. Electronically signed by: Ricardo Urbina MD 12/25/2023 03:36 PM EDT
--- NOTE | ~2023-12-25 | XR_ITS ---
EXAMINATION: XR LEFT HAND/WRIST XR LUMBAR SPINE CLINICAL INFORMATION: Low back pain after fall. Left hand pain after trauma. COMPARISON: October 02, 2023 TECHNIQUE: 4 views of the left hand were obtained. 3 views of the lumbar spine were obtained. FINDINGS: Left hand: Alignment is anatomic. Joint spaces are maintained. No displaced fracture or dislocation. Lumbar spine: There are 5 nonrib-bearing lumbar vertebral bodies. Relative straightening of the lumbar lordosis. Minimal retrolisthesis of L5 on S1. Vertebral body heights and intervertebral disc spaces are maintained. Sacroiliac joints are intact. Intrauterine device projects over the pelvis. XR/XR hand wrist LT IMPRESSION: No acute abnormality. Electronically signed by: Ricardo Urbina MD 12/25/2023 03:36 PM EDT
[2023-12-25 14:10] VITALS: BP 115/75; PULSE 83; RESP 16; TEMP 36.8; O2SAT 97; BMI 33.7
--- NOTE | 2023-12-25 14:17 | ED_ITS ---
HPI - Extremity Problem General Chief complaint: Extremity Injury, Upper Stated complaint: L hand inj Time Seen by Provider: 12/25/23 15:30 Source: patient Mode of arrival: ambulatory Limitations: no limitations History of Present Illness ED Provider: Una Mena PA-C HPI Narrative: Patient is a 18 year old assigned female at with a history of MDD, CPTSD, hidradenitis suppurativa, asthma, and chronic pain, presenting to the emergency department today with left wrist and low back pain. Patient states that last night she punched a wall with her left hand and at some point she fell backwards onto her back as well and that hurts. Patient denies any head strike or loss of consciousness. Patient denies any dizziness, lightheadedness, abdominal pain, nausea, vomiting, fever, chills, blurry vision, double vision, loss of vision, chest pain, difficulty breathing, shortness of breath, night sweats, pain with urination, increased urinary frequency, increased urinary urgency, blood in her urine or stool, syncope or a near syncopal episode, bowel incontinence, bladder incontinence, or any other complaints at this time. Relieving factors: nothing Exacerbating factors: nothing Associated symptoms: denies other symptoms Related Data Previous Rx's ?Medication ?Instructions ?Recorded ibuprofen 600 mg tablet 600 mg PO Q6H PRN pain #30 tabs 01/10/21 albuterol sulfate 90 mcg/actuation 2 puff inhalation RQ4H PRN 07/09/21 aerosol inhaler (Ventolin HFA) shortness of breath or wheeze 30 days #1 g duloxetine 30 mg capsule,delayed 30 mg PO DAILY 30 days #30 caps 07/09/21 release ferrous sulfate 324 mg (65 mg 324 mg PO DAILY 30 days #30 tabs 07/09/21 iron) tablet,delayed release prazosin 1 mg capsule 4 mg PO BEDTIME 30 days #120 caps 07/09/21 quetiapine 50 mg tablet 50 mg PO BEDTIME 30 days #30 tabs 07/09/21 ondansetron 4 mg disintegrating 4 mg PO Q8H PRN nausea and 03/30/23 tablet vomiting 4 days #10 tabs ibuprofen 600 mg tablet 600 mg PO Q6H PRN fever or pain 09/13/23 #30 tabs agsaqehqgp-vkzykfarndryc-ufnzlwyp 1 tab PO Q6H PRN haeadace #20 tabs 11/21/23 50 mg-325 mg-40 mg tablet doxycycline hyclate 100 mg tablet 100 mg PO BID #20 tabs 11/21/23 mupirocin 2 % topical ointment 1 appl topical BID #15 grams 11/21/23 Allergies Allergy/AdvReac Type Severity Reaction Status Date / Time Chocolate Allergy Severe Anaphylaxis Verified 12/25/23 14:12 Review of Systems Constitutional: Constitutional: Reports no additional constitutional complaints, Denies chills, Denies fever(s) and Denies night sweats Eyes: Eyes: Reports no additional eye complaints, Denies blurry vision, Denies change in vision, Denies diplopia, Denies eye discharge, Denies loss of vision and Denies eye pain ENT: Denies dizziness Cardiovascular: Cardiovascular: Reports no additional cardiovascular complaints, Denies chest pain, Denies lightheadedness, Denies Loss of Consciousness and Denies dyspnea Respiratory: Respiratory: Reports no additional respiratory complaints and Denies dyspnea Gastrointestinal: Gastrointestinal: Reports no additional gastrointestinal complaints, Denies abdominal pain, Denies melena, Denies hematochezia, Denies change in bowel habits and Denies change in stool character Genitourinary: Genitourinary: Denies hematuria, Denies urinary frequency, Denies dysuria, Denies urinary incontinence, Denies urinary hesitancy and Denies urinary urgency Musculoskeletal: Musculoskeletal: Reports no additional musculoskeletal complaints, Denies numbness and Denies tingling Comments: left wrist pain left hand pain low back pain Neurologic: Denies dizziness, Denies loss of vision, Denies numbness and Denies tingling Psychiatric: Psychiatric: Reports no additional psychiatric complaints Endocrine: Endocrine: Reports no additional endocrine complaints Hematologic/Lymphatic: Hematologic/Lymphatic: Reports no additional hematologic/lymphatic complaints Allergic/Immunologic: Allergic/Immunologic: Reports no additional allergic/immunologic complaints [facility] Past Medical History Attestation statement: The following information was validated with the patient. Source: old records reviewed and nursing notes reviewed Medical History Hidradenitis suppurativa Chronic pain Chronic abdominal pain History of COVID-19 Asthma Family History Family History Other Diabetes Social History Social History Household Members: Other Household Members Other:: Aunt, uncle and 3 cousins Housing: House Do you presently have visiting nurse or other home services: No Alcohol intake: current Alcohol intake frequency: holidays/special occasions only Patient Tobacco Use Status: Never used Tobacco e-Cigarette/Vaping Use: Never Used Second Hand Smoke Exposure: No Substance Use Type: Marijuana Advance Directives: Yes Advance Directives on File: Yes Advance Directives Date on File: 08/11/23 service: No Sexual orientation: Did not discuss. Physical Exam Vital Signs: Vital Signs: Last Vital Signs Temp 97.9 F 12/25/23 16:18 Pulse 81 12/25/23 16:18 Resp 18 12/25/23 16:18 BP 115/75 12/25/23 16:18 Pulse Ox 98 12/25/23 16:18 O2 Del Method Room Air 12/25/23 16:18 BMI result Body Mass Index 33.7 Const: General: cooperative, no acute distress, alert and awake Nutritional Appearance: well nourished Orientation/consciousness: patient oriented x3 Limitations: no limitations HEENT: Head: Yes normal to inspection and Yes atraumatic Ears: hearing grossly normal bilaterally and external ears normal General nose exam: Normal external nose present, no nasal discharge noted and no epistaxis Face and sinus: Yes normal facial exam, No abrasion and No laceration Mouth: Normal oral and palatal mucosa present, no drooling and no muffled voice Eyes: General: appearance normal, both eyes and all related structures Periorbital: periorbital findings normal Eyelids: Yes eyelids normal Conjunctivae: conjunctivae normal Pupils: Equal, round and reactive pupils present EOM: EOMs intact bilaterally Neck: Neck: Yes normal visual inspection, Yes full ROM and Yes no lymphadenopathy Chest: Chest palpation & inspection: normal inspection of the chest Resp: Effort & Inspection: normal respiratory effort and able to speak in complete sentences GI: Inspection: Yes normal to inspection Neuro: General: patient oriented x3 and moves all extremities Cranial nerves: Yes Equal, round and reactive pupils present Cognition (Neuro): normal cognition Extrem: General: Yes normal to inspection, Yes full ROM and Yes capillary refill normal Psych: Appearance: grossly normal Mental Status: mental status grossly normal Affect: normal affect Attitude: cooperative Thought process: Normal thought process present Thought content: Normal thought content present Insight: Good insight present (Psych) Course Course Course Narrative: This is a Rapid Medical Examination (RME) performed by Erin Lopez PA-C in triage. Full HPI, ROS, assessment and treatment plan per primary provider in the Main ED. 18 yo female here w/ left hand/wrist pain after punching a door out of anger yesterday. also reports falling onto her back w/ low back pain. no red flags. +bruising to ulnar aspect of left hand. no midline spinous tenderness or step off. Plan: xrs Medical Decision Making Medical Decision Making MDM Narrative: Patient is a 18 year old assigned female at with a history of MDD, CPTSD, hidradenitis suppurativa, asthma, and chronic pain, presenting to the emergency department today with left wrist and low back pain. Patient's physical exam was unremarkable. Patient's left hand/wrist and lumbar spine x-rays showed no acute process. I explained my physical exam findings as well as all test results to the patient. I answered all questions asked by the patient. Patient's left wrist was placed in a volar velcor wrist splint, without incident. Patient's PMS was intact prior to and after splint placement. stressed the importance of the patient taking her medication as directed (either prescribed or as the over the counter packaging recommends). I stressed the importance of the patient following up with her primary care provider. I stressed the importance of the patient returning to the emergency department immediately if her symptoms were to worsen or if she were to develop any dizziness, shortness of breath, difficulty breathing, chest pain, blurry vision, loss of vision, nausea, vomiting, abdominal pain, fever, chills, back pain, or any other complaints. Patient verbalized agreement and understanding with this treatment plan and discharge. Differential Diagnosis Differential Diagnoses: The differential diagnosis associated with the presentation includes Wrist sprain Wrist strain Wrist fracture Hand sprain Hand pain Hand fracture Low back pain Admission/Observation Consideration of admission/observation: Escalation of care including admission/observation considered Patient would have been admitted to the hospital had her work up had any findings where hospital admission was appropriate and her clinical presentation warranted hospital admission. Independent Interpretation I performed an independent interpretation of an: Plain X-Ray Interpretation: My interpretation is in agreement with the radiologist's impression of these imaging studies. EXAMINATION: XR LEFT HAND/WRIST XR LUMBAR SPINE CLINICAL INFORMATION: Low back pain after fall. Left hand pain after trauma. COMPARISON: October 02, 2023 TECHNIQUE: 4 views of the left hand were obtained. 3 views of the lumbar spine were obtained. FINDINGS: Left hand: Alignment is anatomic. Joint spaces are maintained. No displaced fracture or dislocation. Lumbar spine: There are 5 nonrib-bearing lumbar vertebral bodies. Relative straightening of the lumbar lordosis. Minimal retrolisthesis of L5 on S1. Verte bral body heights and intervertebral disc spaces are maintained. Sacroiliac joints are intact. Intrauterine device projects over the pelvis. XR/XR hand wrist LT IMPRESSION: No acute abnormality. Electronically signed by: Ricardo Urbina MD 12/25/2023 03:36 PM EDT RP Dictated By: Ravinder Urbina MD Signed By: Electronically signed by Ravinder Urbina MD 12/25/23 1536 Radiology Impression Discussion of test interpretation with radiology: I have reviewed the radiologist's reading. Procedures Orthopedic Splinting/Casting Injury #1: Side: left Upper Extremity Injury Location: wrist Upper Extremity Immobilizer: volar splint Discharge Plan Discharge Clinical Impression: Sprain of wrist, Low back pain Patient Disposition: Home, Self-Care Instructions: Acute Low Back Pain (ED), Wrist Sprain (ED) Additional Instructions: Please avoid punching things. Wear your brace as needed for pain. Follow up with your primary care provider. Return to the emergency department immediately if your symptoms worsen or if you develop any dizziness, shortness of breath, difficulty breathing, chest pain, blurry vision, loss of vision, nausea, vomiting, abdominal pain, fever, chills, back pain, or any other complaints. Prescriptions: No Action ibuprofen 600 mg tablet 600 mg PO Q6H PRN (Reason: pain) Qty: 30 0RF prazosin 1 mg Capsule 4 mg PO BEDTIME 30 Days Qty: 120 0RF Protocol: Hold for SBP< HOLD for SBP < : 90 albuterol sulfate [Ventolin HFA] 90 mcg/actuation Hfa Aerosol Inhaler 2 puff inhalation RQ4H PRN (Reason: shortness of breath or wheeze) 30 Days Qty: 1 0RF duloxetine 30 mg Capsule,Delayed Release(Dr/Ec) 30 mg PO DAILY 30 Days Qty: 30 0RF quetiapine 50 mg Tablet 50 mg PO BEDTIME 30 Days Qty: 30 0RF ferrous sulfate 324 mg (65 mg iron) Tablet,Delayed Release (Dr/Ec) 324 mg PO DAILY 30 Days Qty: 30 0RF ondansetron 4 mg tablet,disintegrating 4 mg PO Q8H PRN (Reason: nausea and vomiting) 4 Days Qty: 10 0RF ibuprofen 600 mg tablet 600 mg PO Q6H PRN (Reason: fever or pain) Qty: 30 0RF doxycycline hyclate 100 mg tablet 100 mg PO BID Qty: 20 0RF mupirocin 2 % ointment 1 appl topical BID Qty: 15 0RF trbnwtrgeb-dkkypimcnlrky-sxqw 50-325-40 mg tablet 1 tab PO Q6H PRN (Reason: haeadace) Qty: 20 0RF Referrals: Minerva Bailey MD [Primary Care Provider] - Stand Alone Forms: Work/School Release Interventions: ED Discharge Assessment Last Done: 12/25/23 16:18 Discharge Date/Time: 12/25/23 16:19 Print Language: Angolan
[2023-12-25 16:00] VITALS: PULSE 81; RESP 18; TEMP 36.6; O2SAT 98
[2023-12-25 16:18] VITALS: BP 115/75; PULSE 81; RESP 18; TEMP 36.6; O2SAT 98
== END 2023-12-25 16:19 | disposition home or self-care (01) ==
PROVIDERS: Emergency Provider Emergency Medicine; PCP Family Medicine
DX: S63.502A Unspecified sprain of left wrist, initial encounter (principal); M54.50 Low back pain, unspecified; M79.642 Pain in left hand; X58.XXXA Exposure to other specified factors, initial encounter; Y93.89 Activity, other specified; Y92.89 Other specified places as the place of occurrence of the external cause; Y99.8 Other external cause status
CPT/HCPCS: 29125; 72100; 73110; 73130; 99283; 99284

== ENCOUNTER 2024-03-02 15:26 | Emergency (ER) | payer MEDICAID, SELFPAY ==
--- NOTE | ~2024-03-02 | XR_ITS ---
EXAMINATION: XR CHEST CLINICAL INFORMATION: sob COMPARISON: 05/26/2016 TECHNIQUE: Frontal view of the chest was obtained. FINDINGS: No significant abnormality is noted involving the heart, lungs, mediastinum, bony thorax or soft tissues. XR/XR chest 1V IMPRESSION: Unremarkable examination. Electronically signed by: Brent Amezcua MD 03/02/2024 08:07 PM [facility]
[2024-03-02 16:35] VITALS: BP 132/68; PULSE 96; RESP 18; TEMP 36.4; O2SAT 99; BMI 33.7
--- NOTE | 2024-03-02 16:36 | ED.NAVMDI ---
HPI - Nausea/Vomiting/Diarrhea General Chief complaint: Nausea/Vomiting/Diarrhea Stated complaint: vomiting Time Seen by Provider: 03/02/24 21:42 Source: patient Mode of arrival: ambulatory Limitations: no limitations History of Present Illness ED Provider: bacilio SOUZA Narrative: Patient's history of depression PTSD asthma complaining of diarrhea for last few days saying will asking for food and drink ER no bowel movement in 4 hours comes here with multiple complaints labs were stable not in any distress no recent travel no intake of bad food Related Data Previous Rx's ?Medication ?Instructions ?Recorded ibuprofen 600 mg tablet 600 mg PO Q6H PRN pain #30 tabs 01/10/21 albuterol sulfate 90 mcg/actuation 2 puff inhalation RQ4H PRN 07/09/21 aerosol inhaler (Ventolin HFA) shortness of breath or wheeze 30 days #1 g duloxetine 30 mg capsule,delayed 30 mg PO DAILY 30 days #30 caps 07/09/21 release ferrous sulfate 324 mg (65 mg 324 mg PO DAILY 30 days #30 tabs 07/09/21 iron) tablet,delayed release prazosin 1 mg capsule 4 mg PO BEDTIME 30 days #120 caps 07/09/21 quetiapine 50 mg tablet 50 mg PO BEDTIME 30 days #30 tabs 07/09/21 ondansetron 4 mg disintegrating 4 mg PO Q8H PRN nausea and 03/30/23 tablet vomiting 4 days #10 tabs ibuprofen 600 mg tablet 600 mg PO Q6H PRN fever or pain 09/13/23 #30 tabs csvcbipmas-odxrjiikzpazq-lhnulpga 1 tab PO Q6H PRN haeadace #20 tabs 11/21/23 50 mg-325 mg-40 mg tablet doxycycline hyclate 100 mg tablet 100 mg PO BID #20 tabs 11/21/23 mupirocin 2 % topical ointment 1 appl topical BID #15 grams 11/21/23 dicyclomine 20 mg tablet 20 mg PO TID PRN Abdominal 03/02/24 Discomfort #20 tabs Allergies Allergy/AdvReac Type Severity Reaction Status Date / Time Chocolate Allergy Severe Anaphylaxis Verified 03/02/24 16:37 Review of Systems Review of Systems: Yes all other systems are reviewed and are negative PMFSH Past Medical History Medical History Hidradenitis suppurativa Chronic pain Chronic abdominal pain History of COVID-19 Asthma Family History Family History Other Diabetes Social History Social History Household Members: Other Household Members Other:: Aunt, uncle and 3 cousins Housing: House Do you presently have visiting nurse or other home services: No Alcohol intake: current Alcohol intake frequency: holidays/special occasions only Patient Tobacco Use Status: Never used Tobacco e-Cigarette/Vaping Use: Never Used Second Hand Smoke Exposure: No Substance Use Type: Marijuana Advance Directives: Yes Advance Directives on File: Yes Advance Directives Date on File: 08/11/23 service: No Sexual orientation: Did not discuss. Physical Exam Vital Signs: Vital Signs: Last Vital Signs Temp 98.5 F 03/02/24 21:28 Pulse 85 03/02/24 21:28 Resp 18 03/02/24 21:28 BP 119/65 03/02/24 21:28 Pulse Ox 99 03/02/24 21:28 O2 Del Method Room Air 03/02/24 21:28 BMI result Body Mass Index 33.7 Appearance: Alert. Oriented X3. No acute distress. Eyes: PERRLA, No Nystagmus ENT: Pharynx normal. Oral Mucosa moist Neck: Normal inspection. Neck supple. CVS: Normal heart rate and rhythm. Pulses normal. Respiratory: No respiratory distress. Equal air entry bilateral, no wheezing/rales/rhonchi Abdomen: Soft and diffuse mild tenderness Bowel sounds are present, no mass palpable, no CVA tenderness Skin: Skin warm and dry. Normal skin color. Normal skin turgor. Extremities: No lower extremity edema. No calf tenderness Neuro: Oriented X 3. No motor deficit. No sensory deficit.No cerebellar signs , cranial nerves II-XII intact Course Course Course Narrative: This is a Rapid Medical Exam performed in triage by Odalys Coffey PA-C. Full HPI, ROS and PE to be performed by primary ED provider. 18yo F presenting to the ED c/o diffuse abdominal pain, nausea, vomiting, diarrhea & intermittent facial reaction x1 week. Also reports acute on chronic back pain, SOB & sore throat. Also reports vaginal bleeding x today (hasnt had period in 3 years due to IUD) & vaginal pain. PE: nontoxic appearing, talking in complete sentences, abdomen soft diffusely tender, no rebound or guarding Plan: EKG, labs, UA, CXR, viral testing Medical Decision Making Medical Decision Making [facility] Narrative: Patient has multiple complaints with stable likely has functional diarrhea /ibs eating food in the ER without any bowel movement discharge patient home Lab Data [facility] Lab Attestation statement: I reviewed the patient's lab results. 03/02/24 16:58 03/02/24 16:58 Labs: Lab Results 03/02/24 Range/Units 16:58 WBC 8.4 (4.8-10.8) X10*3/uL RBC 4.24 (4.20-5.50) X10*6/uL Hgb 13.3 (12.0-16.0) g/dl Hct 39.1 (37.0-47.0) % MCV 92.2 (80.0-98.0) fL MCH 31.4 (27.0-33.0) pg MCHC 34.0 (31.0-35.0) g/dl RDW 12.0 (11.0-16.0) % Plt Count 281 (160-400) X10*3/uL MPV 8.7 L (9.4-12.3) fL Immature Gran % (Auto) 0.2 (0.0-0.4) % Neut % (Auto) 76.2 H (45-73) % Lymph % (Auto) 14.1 L (20-40) % [place] % (Auto) 8.0 (2-11) % Eos % (Auto) 1.0 (0-4) % Baso % (Auto) 0.5 (0-2) % Lymph # (Auto) 1.2 (1.2-4.9) X10*3/uL [place] # (Auto) 0.7 (0.1-1.2) X10*3/uL Eos # (Auto) 0.1 (0.0-0.4) X10*3/uL Baso # (Auto) 0.0 (0.0-0.2) X10*3/uL Abs Immat Gran (auto) 0.02 (0.00-0.03) X10*3/uL Absolute Neuts (auto) 6.4 (2.0-8.3) x10*3/uL Absolute Nucleated RBC 0.000 (0.0-0.012) X10*3/uL Nucleated RBC % (auto) 0.0 (0.0-0.2) /100WBC Sodium 141 (135-145) mmol/L Potassium 4.0 (3.3-5.1) mmol/L Chloride 108 (96-108) mmol/L Carbon Dioxide 23 (22-29) mmol/L Anion Gap 14 (12-20) BUN 9 (9-16) mg/dL Creatinine 0.82 (0.5-1.4) mg/dL Estim Creat Clear Calc 144.6 Estimated GFR > 60 Random Glucose 99 (60-115) mg/dL Calcium 9.2 (8.4-10.2) mg/dL Magnesium 2.0 (1.6-2.6) mg/dL Total Bilirubin 0.5 (0.0-1.0) mg/dL Direct Bilirubin 0.2 (0.0-0.5) mg/dL AST 19 (5-31) U/L ALT 18 (0-31) U/L Alkaline Phosphatase 42 (39-117) U/L Troponin I High Sens < 2.7 (<3.5-17.0) ng/L Total Protein 7.1 (6.5-8.0) g/dL Albumin 4.1 (3.5-5.0) g/dL Lipase 9 (8-78) U/L Urine Color Dark Yellow Urine Appearance Cloudy Urine pH 5.5 (5.0-9.0) Ur Specific [place] >= 1.030 H (1.005-1.025) Urine Protein Trace (Neg-Trace) mg/dL Urine Glucose (UA) Negative (Negative) mg/dL Urine Ketones 15 (Negative) mg/dL Urine Blood Negative (Negative) Urine Nitrite Negative (Negative) Ur Leukocyte Esterase Negative (Negative) Urine Test NEGATIVE (NEGATIVE) Influenza Type A (PCR) NEGATIVE (Negative) Influenza Type B (PCR) NEGATIVE (Negative) RSV RNA Qual (PCR) NEGATIVE (Negative) SARS-CoV-2 RNA (RT-PCR) NEGATIVE (Negative) Discharge Plan Discharge Clinical Impression: Diarrhea Patient Disposition: Home, Self-Care Instructions: Acute Diarrhea (ED) Additional Instructions: Drink plenty of fluids Follow the PCP if any concerns Take dicyclomine for abdominal cramping Prescriptions: New dicyclomine 20 mg tablet 20 mg PO TID PRN (Reason: Abdominal Discomfort) Qty: 20 0RF No Action ibuprofen 600 mg tablet 600 mg PO Q6H PRN (Reason: pain) Qty: 30 0RF prazosin 1 mg Capsule 4 mg PO BEDTIME 30 Days Qty: 120 0RF Protocol: Hold for SBP< HOLD for SBP < : 90 albuterol sulfate [Ventolin HFA] 90 mcg/actuation Hfa Aerosol Inhaler 2 puff inhalation RQ4H PRN (Reason: shortness of breath or wheeze) 30 Days Qty: 1 0RF duloxetine 30 mg Capsule,Delayed Release(Dr/Ec) 30 mg PO DAILY 30 Days Qty: 30 0RF quetiapine 50 mg Tablet 50 mg PO BEDTIME 30 Days Qty: 30 0RF ferrous sulfate 324 mg (65 mg iron) Tablet,Delayed Release (Dr/Ec) 324 mg PO DAILY 30 Days Qty: 30 0RF ondansetron 4 mg tablet,disintegrating 4 mg PO Q8H PRN (Reason: nausea and vomiting) 4 Days Qty: 10 0RF ibuprofen 600 mg tablet 600 mg PO Q6H PRN (Reason: fever or pain) Qty: 30 0RF doxycycline hyclate 100 mg tablet 100 mg PO BID Qty: 20 0RF mupirocin 2 % ointment 1 appl topical BID Qty: 15 0RF wvpzcmrexz-eokaukbvsmbvo-sjuh 50-325-40 mg tablet 1 tab PO Q6H PRN (Reason: haeadace) Qty: 20 0RF Print Language: Kyrgyz
--- NOTE | 2024-03-02 16:37 | ECG_ITS ---
Test Reason : sob Blood Pressure : / mmHG Vent. Rate : 082 BPM Atrial Rate : 082 BPM P-R Int : 188 ms QRS Dur : 080 ms QT Int : 364 ms P-R-T Axes : 066 063 046 degrees QTc Int : 425 ms Normal sinus rhythm Normal ECG No previous ECGs available Referred By: Odalys Coffey Electronically Signed By:TEJ ESPINOZA
[2024-03-02 17:03] LABS: MANUAL DIFF FLAG NO
[2024-03-02 17:06] LABS: Basophils Percent Auto 0.5 % (0-2); Eosinophils Absolute Auto 0.1 X10*3/uL (0.0-0.4); Hematocrit 39.1 % (37.0-47.0); Hemoglobin 13.3 g/dl (12.0-16.0); Imm Gran Abs Auto 0.02 X10*3/uL (0.00-0.03); Imm Gran Pct Auto 0.2 % (0.0-0.4); Lymphocytes Absolute Auto 1.2 X10*3/uL (1.2-4.9); Lymphocytes Percent Auto 14.1 % (20-40); Mean Corpuscular Hemoglobin 31.4 pg (27.0-33.0); Mean Corpuscular Volume 92.2 fL (80.0-98.0); Mean Platelet Volume 8.7 fL (9.4-12.3); Monocytes Absolute Auto 0.7 X10*3/uL (0.1-1.2); Neutrophils Absolute Auto 6.4 x10*3/uL (2.0-8.3); Neutrophils Percent Auto 76.2 % (45-73); Platelet Count 281 X10*3/uL (160-400); Red Blood Count 4.24 X10*6/uL (4.20-5.50); White Blood Count 8.4 X10*3/uL (4.8-10.8)
[2024-03-02 17:07] LABS: Appearance Urine Cloudy; Color Urine Dark Yellow; Glucose Urine UA Negative (Negative); Leukocyte Esterase Urine Negative (Negative); Nitrite Urine Negative (Negative); PH 5.5 (5.0-9.0); Specific Gravity - Urine >= 1.030 (1.005-1.025); Urine Blood Negative (Negative); Urine Ketones 15 mg/dL (Negative); Urine Protein Trace mg/dL (Neg-Trace)
[2024-03-02 17:11] LABS: UPreg QC Valid YES; Urine Pregnancy NEGATIVE (NEGATIVE)
[2024-03-02 17:21] LABS: Alanine Aminotransferase 18 U/L (0-31); Albumin Level 4.1 g/dL (3.5-5.0); Alkaline Phosphatase 42 U/L (39-117); Anion Gap 14 (12-20); Aspartate Amino Transferase 19 U/L (5-31); Bilirubin Direct 0.2 mg/dL (0.0-0.5); Bilirubin Total 0.5 mg/dL (0.0-1.0); Blood Urea Nitrogen 9 mg/dL (9-16); Calcium 9.2 mg/dL (8.4-10.2); Carbon Dioxide 23 mmol/L (22-29); Chloride 108 mmol/L (96-108); Creatinine Clr Calc Pharmacy 144.6; Estimated Glomerular Filt Rate > 60; Glucose Random 99 mg/dL (60-115); Lipase 9 U/L (8-78); Sodium 141 mmol/L (135-145); Total Protein 7.1 g/dL (6.5-8.0)
[2024-03-02 17:28] LABS: Troponin-I High Sensitivity < 2.7 ng/L (<3.5-17.0)
[2024-03-02 18:33] LABS: Influenza A PCR NEGATIVE (Negative); Influenza B PCR NEGATIVE (Negative); Resp Syncy Virus RNA Qual PCR NEGATIVE (Negative); SARS COV2 PCR INHOUSE NEGATIVE (Negative)
[2024-03-02 21:28] VITALS: BP 119/65; PULSE 85; RESP 18; TEMP 36.9; O2SAT 99
[2024-03-02] MEDS: Dicyclomine HCl 10 MG CAPSULE 20 MG PO (22:05)
[2024-03-02 22:08] VITALS: BP 119/65; PULSE 85; RESP 18; TEMP 36.9; O2SAT 99
== END 2024-03-02 22:09 | disposition home or self-care (01) ==
PROVIDERS: Physician Assistant; Emergency Provider Internal Medicine; PCP Family Medicine
DX: R19.7 Diarrhea, unspecified (principal); Z03.818 Encounter for observation for suspected exposure to other biological agents ruled out; J02.9 Acute pharyngitis, unspecified; R06.02 Shortness of breath; J45.909 Unspecified asthma, uncomplicated; Z79.899 Other long term (current) drug therapy
CPT/HCPCS: 0241U; 36415; 71045; 80048; 80076; 81003; 81025; 83690; 83735; 84484; 85025; 93005; 99283; 99285

== ENCOUNTER → 2024-03-02 16:37 | Outpatient (BNV) | payer MEDICAID, SELFPAY | PROVIDERS: Emergency Provider Internal Medicine; PCP Family Medicine; Visit Provider Internal Medicine | DX: R06.02 Shortness of breath (principal) | CPT/HCPCS: 93010 ==

== ENCOUNTER 2024-03-12 23:25 | Emergency (ER) | payer MEDICAID, SELFPAY ==
--- NOTE | ~2024-03-12 | XR_ITS ---
EXAMINATION: XR CHEST CLINICAL INFORMATION: Cough COMPARISON: March 02, 2024. TECHNIQUE: 2 views of the chest were obtained. FINDINGS: No significant abnormality is noted involving the heart, lungs, mediastinum, bony thorax or soft tissues. XR/XR chest 2V IMPRESSION: Unremarkable examination. Electronically signed by: Wallace Easton MD 03/13/2024 12:22 AM [facility]
[2024-03-12 23:30] VITALS: BP 118/66; PULSE 100; RESP 18; TEMP 35.9; O2SAT 98; BMI 34.5
[2024-03-13 00:28] LABS: IDNOW Serial# 08D9AD1C; Strep A Nucleic Acid Negative (Negative)
[2024-03-13 00:40] LABS: COVID-19 Test Negative (Negative); IDNOW Serial# 152EDE1D; IDNOW Serial# 9DB6401D; Influenza A Negative (Negative); Influenza B2 Negative (Negative)
--- NOTE | 2024-03-13 02:50 | ED_ITS ---
HPI - URI/Sore Throat General Chief Complaint: Upper Respiratory Symptoms Stated Complaint: sore throat, rash on stomach Time Seen by Provider: 03/13/24 02:38 Source: patient Mode of arrival: ambulatory Limitations: no limitations History of Present Illness ED Provider: HPI Narrative: Patient is homeless complaining of cough for last 2 weeks had low-grade fever 2 days ago does have history of depression and PTSD not in any distress when arrived Related Data Previous Rx's ?Medication ?Instructions ?Recorded ibuprofen 600 mg tablet 600 mg PO Q6H PRN pain #30 tabs 01/10/21 albuterol sulfate 90 mcg/actuation 2 puff inhalation RQ4H PRN 07/09/21 aerosol inhaler (Ventolin HFA) shortness of breath or wheeze 30 days #1 g duloxetine 30 mg capsule,delayed 30 mg PO DAILY 30 days #30 caps 07/09/21 release ferrous sulfate 324 mg (65 mg 324 mg PO DAILY 30 days #30 tabs 07/09/21 iron) tablet,delayed release prazosin 1 mg capsule 4 mg PO BEDTIME 30 days #120 caps 07/09/21 quetiapine 50 mg tablet 50 mg PO BEDTIME 30 days #30 tabs 07/09/21 ondansetron 4 mg disintegrating 4 mg PO Q8H PRN nausea and 03/30/23 tablet vomiting 4 days #10 tabs ibuprofen 600 mg tablet 600 mg PO Q6H PRN fever or pain 09/13/23 #30 tabs auraiuvrio-ijkldrlwwbwjs-vgziksum 1 tab PO Q6H PRN haeadace #20 tabs 11/21/23 50 mg-325 mg-40 mg tablet doxycycline hyclate 100 mg tablet 100 mg PO BID #20 tabs 11/21/23 mupirocin 2 % topical ointment 1 appl topical BID #15 grams 11/21/23 dicyclomine 20 mg tablet 20 mg PO TID PRN Abdominal 03/02/24 Discomfort #20 tabs amoxicillin 875 mg-potassium 1 tab PO BID #20 tabs 03/13/24 clavulanate 125 mg tablet Allergies Allergy/AdvReac Type Severity Reaction Status Date / Time Chocolate Allergy Severe Anaphylaxis Verified 03/12/24 23:31 Review of Systems Review of Systems: Yes all other systems are reviewed and are negative PMFSH Past Medical History Medical History Hidradenitis suppurativa Chronic pain Chronic abdominal pain History of COVID-19 Asthma Family History Family History Other Diabetes Social History Social History Household Members: Other Household Members Other:: Aunt, uncle and 3 cousins Housing: House Do you presently have visiting nurse or other home services: No Alcohol intake: current Alcohol intake frequency: holidays/special occasions only Patient Tobacco Use Status: Never used Tobacco Smoked in Last 30 Days: No e-Cigarette/Vaping Use: Never Used Second Hand Smoke Exposure: No Substance Use Type: Marijuana Substance Use Frequency: Occasionally Last Used Substance: Hours (ago) Advance Directives: Yes Advance Directives on File: Yes Advance Directives Date on File: 08/11/23 Do you have a plan to hurt others: No Plan Patient : No service: No Sexual orientation: Did not discuss. Physical Exam Vital Signs: Vital Signs: Last Vital Signs Temp 98.1 F 03/13/24 04:43 Pulse 90 03/13/24 04:43 Resp 16 03/13/24 04:43 BP 99/52 L 03/13/24 04:43 Pulse Ox 97 03/13/24 04:43 O2 Del Method Room Air 03/13/24 04:43 BMI result Body Mass Index 34.5 Appearance: Alert. Oriented X3. No acute distress. ENT: Pharynx normal. Oral Mucosa moist Neck: Normal inspection. Neck supple. CVS: Normal heart rate and rhythm. Pulses normal. Respiratory: No respiratory distress. Equal air entry bilateral, no wheezing/rales/rhonchi Skin: Skin warm and dry. Normal skin color. Normal skin turgor. Extremities: No lower extremity edema. Neuro: Oriented X 3. Medications Administered Discontinued Medications Generic Name Dose Route Start Last Admin Trade Name Freq PRN Reason Stop Dose Admin Amoxicillin/Clavulanate Potassium 875 mg 03/13/24 02:51 03/13/24 03:02 Amoxicillin/Potassium Clav 875 Mg Tablet PO 03/13/24 02:52 875 mg ONCE ONE Administration Medical Decision Making Medical Decision Making MDM Narrative: Patient with acute bronchitis will prescribe Augmentin chest x-ray labs negative Lab Data [facility] Lab Attestation statement: I reviewed the patient's lab results. Labs: Lab Results 03/13/24 Range/Units 00:06 COVID-19 (SUDHIR) Negative (Negative) COVID-19 Clin Com See Note Influenza Type A (DAVID) Negative (Negative) Influenza Type B (DAVID) Negative (Negative) Influenza A & B Note See Note S. pyogenes GrpA DAVID Negative (Negative) Independent Interpretation I performed an independent interpretation of an: Plain X-Ray Interpretation: NAD Radiology Impression Discussion of test interpretation with radiology: I have reviewed the radiologist's reading. Discharge Plan Discharge Clinical Impression: Bronchitis Patient Disposition: Home, Self-Care Instructions: Acute Bronchitis (ED) Additional Instructions: Take antibiotic as prescribed Follow with your PCP if not better Prescriptions: New amoxicillin-pot clavulanate 875-125 mg tablet 1 tab PO BID Qty: 20 0RF No Action ibuprofen 600 mg tablet 600 mg PO Q6H PRN (Reason: pain) Qty: 30 0RF prazosin 1 mg Capsule 4 mg PO BEDTIME 30 Days Qty: 120 0RF Protocol: Hold for SBP< HOLD for SBP < : 90 albuterol sulfate [Ventolin HFA] 90 mcg/actuation Hfa Aerosol Inhaler 2 puff inhalation RQ4H PRN (Reason: shortness of breath or wheeze) 30 Days Qty: 1 0RF duloxetine 30 mg Capsule,Delayed Release(Dr/Ec) 30 mg PO DAILY 30 Days Qty: 30 0RF quetiapine 50 mg Tablet 50 mg PO BEDTIME 30 Days Qty: 30 0RF ferrous sulfate 324 mg (65 mg iron) Tablet,Delayed Release (Dr/Ec) 324 mg PO DAILY 30 Days Qty: 30 0RF ondansetron 4 mg tablet,disintegrating 4 mg PO Q8H PRN (Reason: nausea and vomiting) 4 Days Qty: 10 0RF dicyclomine 20 mg tablet 20 mg PO TID PRN (Reason: Abdominal Discomfort) Qty: 20 0RF ibuprofen 600 mg tablet 600 mg PO Q6H PRN (Reason: fever or pain) Qty: 30 0RF doxycycline hyclate 100 mg tablet 100 mg PO BID Qty: 20 0RF mupirocin 2 % ointment 1 appl topical BID Qty: 15 0RF bnrwntpbew-elvnzcpgvrqih-yfpu 50-325-40 mg tablet 1 tab PO Q6H PRN (Reason: haeadace) Qty: 20 0RF Interventions: ED Discharge Assessment Last Done: 03/13/24 04:43 Discharge Date/Time: 03/13/24 04:45 Print Language: Greek
[2024-03-13] MEDS: Amoxicillin/Potassium Clav 875 MG TABLET PO (03:02)
[2024-03-13 04:35] VITALS: BP 99/52; PULSE 90; RESP 16; TEMP 36.7; O2SAT 97
[2024-03-13 04:43] VITALS: BP 99/52; PULSE 90; RESP 16; TEMP 36.7; O2SAT 97
== END 2024-03-13 04:45 | disposition home or self-care (01) ==
PROVIDERS: Emergency Provider Internal Medicine; PCP Family Medicine
DX: J40 Bronchitis, not specified as acute or chronic (principal); J02.9 Acute pharyngitis, unspecified; R05.9 Cough, unspecified; R50.9 Fever, unspecified; Z11.52 Encounter for screening for COVID-19; Z79.899 Other long term (current) drug therapy
CPT/HCPCS: 71046; 87502; 87635; 87651; 99283; 99284

== ENCOUNTER 2024-03-14 23:33 | Inpatient (IN) | payer MEDICAID, OTHER, SELFPAY ==
--- NOTE | 2024-03-14 | ECG_ITS ---
Test Reason : SHORTNESS OF BREATH Blood Pressure : / mmHG Vent. Rate : 100 BPM Atrial Rate : 100 BPM P-R Int : 202 ms QRS Dur : 082 ms QT Int : 344 ms P-R-T Axes : 060 040 035 degrees QTc Int : 443 ms Normal sinus rhythm Normal ECG When compared with ECG of 02-MAR-2024 16:37, No significant change was found Referred By: Generic ED Physician Electronically Signed By:AMY MATHEWS MD
[2024-03-14 23:52] VITALS: BP 157/86; PULSE 95; RESP 16; TEMP 36.4; O2SAT 98; BMI 35.0
[2024-03-15 00:09] LABS: MANUAL DIFF FLAG NO
[2024-03-15 00:15] LABS: Basophils Percent Auto 0.3 % (0-2); Eosinophils Absolute Auto 0.1 X10*3/uL (0.0-0.4); Eosinophils Percent Auto 0.5 % (0-4); Hematocrit 36.4 % (37.0-47.0); Hemoglobin 12.3 g/dl (12.0-16.0); Imm Gran Abs Auto 0.04 X10*3/uL (0.00-0.03); Imm Gran Pct Auto 0.4 % (0.0-0.4); Lymphocytes Absolute Auto 0.9 X10*3/uL (1.2-4.9); Lymphocytes Percent Auto 8.9 % (20-40); Mean Corpuscular HGB Conc 33.8 g/dl (31.0-35.0); Mean Corpuscular Hemoglobin 31.1 pg (27.0-33.0); Mean Corpuscular Volume 91.9 fL (80.0-98.0); Mean Platelet Volume 8.8 fL (9.4-12.3); Monocytes Absolute Auto 0.5 X10*3/uL (0.1-1.2); Monocytes Percent Auto 5.4 % (2-11); Neutrophils Absolute Auto 8.5 x10*3/uL (2.0-8.3); Neutrophils Percent Auto 84.5 % (45-73); Platelet Count 279 X10*3/uL (160-400); Red Blood Count 3.96 X10*6/uL (4.20-5.50); Red Cell Distribution Width 11.8 % (11.0-16.0)
--- NOTE | 2024-03-15 00:25 | ED.PSYCH ---
HPI - Psych General Chief Complaint: Psychiatric Symptoms Stated Complaint: chest pain, took a bottle of unknown medication Time Seen by Provider: 03/15/24 00:02 Source: patient and old records reviewed Mode of arrival: ambulatory Limitations: no limitations History of Present Illness ED Provider: SIMRAN SOUZA Narrative: 18 yo female with PMH of depression, prior SI attempts, PTSD, asthma, notes she has been homeless for 2 months she is severely depressed went to [employer] and bought unknown OTC medications and ingested unknown amount at 10pm. She reports she also cut her R wrist. She denies any other ingestions. She has not vomited. She arrived on her own to ED MD complaint: suicidal ideation and feels depressed Onset (ago): week(s) Duration: getting worse History of same: Yes Relieving factors: none Exacerbating factors: other Context: significant life stressor Associated psychiatric symptoms: depression and suicidal ideation Associated symptoms: denies other symptoms Treatments prior to arrival: none If self harm: admits thoughts of self harm, has plan, has acted on plan and intentional overdose Related Data Previous Rx's ?Medication ?Instructions ?Recorded ibuprofen 600 mg tablet 600 mg PO Q6H PRN pain #30 tabs 01/10/21 albuterol sulfate 90 mcg/actuation 2 puff inhalation RQ4H PRN 07/09/21 aerosol inhaler (Ventolin HFA) shortness of breath or wheeze 30 days #1 g duloxetine 30 mg capsule,delayed 30 mg PO DAILY 30 days #30 caps 07/09/21 release ferrous sulfate 324 mg (65 mg 324 mg PO DAILY 30 days #30 tabs 07/09/21 iron) tablet,delayed release prazosin 1 mg capsule 4 mg PO BEDTIME 30 days #120 caps 07/09/21 quetiapine 50 mg tablet 50 mg PO BEDTIME 30 days #30 tabs 07/09/21 ondansetron 4 mg disintegrating 4 mg PO Q8H PRN nausea and 03/30/23 tablet vomiting 4 days #10 tabs ibuprofen 600 mg tablet 600 mg PO Q6H PRN fever or pain 09/13/23 #30 tabs uiziqjnmgu-zawmbjvegyqhl-ovijuvxc 1 tab PO Q6H PRN haeadace #20 tabs 11/21/23 50 mg-325 mg-40 mg tablet doxycycline hyclate 100 mg tablet 100 mg PO BID #20 tabs 11/21/23 mupirocin 2 % topical ointment 1 appl topical BID #15 grams 11/21/23 dicyclomine 20 mg tablet 20 mg PO TID PRN Abdominal 03/02/24 Discomfort #20 tabs amoxicillin 875 mg-potassium 1 tab PO BID #20 tabs 03/13/24 clavulanate 125 mg tablet Allergies Allergy/AdvReac Type Severity Reaction Status Date / Time Chocolate Allergy Severe Anaphylaxis Verified 03/14/24 23:54 Review of Systems Review of Systems: Constitutional : No Fever, No Chills ENT/Mouth : No Ear Pain, No Nasal Congestion, No sore throat Eyes: No Eye Pain, No Swelling, No Redness Cardiovascular : No Chest Pain, No SOB Respiratory : No Cough, No Sputum, No Dyspnea Gastrointestinal : No Nausea, No Vomiting, No Diarrhea, No Hematochezia, No Melena Genitourinary : No Dysuria, No Urinary Frequency, No Hematuria Musculoskeletal : No Myalgias Skin : No Skin Lesions, No rash Neuro : No Weakness, No Numbness, No Paresthesias, No Dizziness, No Headache Psych : positive Anxiety, positive Depression, positive SI no HI All other systems reviewed and are negative [facility] Past Medical History Attestation statement: The following information was validated with the patient. Source: old records reviewed Medical History Hidradenitis suppurativa Chronic pain Chronic abdominal pain History of COVID-19 Asthma Family History Family History Other Diabetes Social History Social History Household Members: Other Household Members Other:: Aunt, uncle and 3 cousins Housing: House Do you presently have visiting nurse or other home services: No Alcohol intake: current Alcohol intake frequency: holidays/special occasions only Patient Tobacco Use Status: Never used Tobacco e-Cigarette/Vaping Use: Never Used Second Hand Smoke Exposure: No Substance Use Type: Marijuana Advance Directives: Yes Advance Directives on File: Yes Advance Directives Date on File: 08/11/23 Do you have a plan to hurt others: No Plan service: No Sexual orientation: Did not discuss. Physical Exam Vital Signs: Vital Signs: Last Vital Signs Temp 97.7 F 03/15/24 02:15 Pulse 67 03/15/24 02:15 Resp 12 03/15/24 02:15 BP 110/72 03/15/24 02:15 Pulse Ox 99 03/15/24 02:15 O2 Del Method Room Air 03/15/24 02:15 BMI result Body Mass Index 35.0 Appearance: Alert. Oriented X3. No acute distress. Flat affect, appears tearful Eyes: Pupils equal, round and reactive to light. ENT: Pharynx normal. Neck: Normal inspection. Neck supple. CVS: Normal heart rate and rhythm. Pulses normal. Respiratory: No respiratory distress. Breath sounds normal. Abdomen: Soft and nontender. Skin: Skin warm and dry. Normal skin color. Extremities: No lower extremity edema. Neuro: Oriented X 3. No motor deficit. No sensory deficit. CN2-12 intact Course Course Course Narrative: signed out to Dr. Rivera pending repeat labs Medical Decision Making Medical Decision Making [facility] Narrative: 18 yo female with PMH of depression, prior SI attempts, PTSD, asthma here with c/o SI and overdose of pills unknown time or amount at this time basic labs, tox labs, repeat in 4 hours 10am labs 4 hour level would be 2am. She is out of window for charcoal, EKG, VBG, observation. She states she was at [employer] at 10pm and overdosed but [employer] is only open till 8 so I am unclear about the timeline. Differential Diagnosis Differential Diagnoses: The differential diagnosis associated with the presentation includes SI, overdose Admission/Observation Consideration of admission/observation: Escalation of care including admission/observation considered physician observation started at 1234am Lab Data [facility] Lab Attestation statement: I reviewed the patient's lab results. 03/15/24 00:03 03/15/24 00:03 Labs: Lab Results 03/15/24 03/15/24 03/15/24 Range/Units 00:03 00:32 00:38 WBC 10.0 (4.8-10.8) X10*3/uL RBC 3.96 L (4.20-5.50) X10*6/uL Hgb 12.3 (12.0-16.0) g/dl Hct 36.4 L (37.0-47.0) % MCV 91.9 (80.0-98.0) fL MCH 31.1 (27.0-33.0) pg MCHC 33.8 (31.0-35.0) g/dl RDW 11.8 (11.0-16.0) % Plt Count 279 (160-400) X10*3/uL MPV 8.8 L (9.4-12.3) fL Immature Gran % (Auto) 0.4 (0.0-0.4) % Neut % (Auto) 84.5 H (45-73) % Lymph % (Auto) 8.9 L (20-40) % Braxton % (Auto) 5.4 (2-11) % Eos % (Auto) 0.5 (0-4) % Baso % (Auto) 0.3 (0-2) % Lymph # (Auto) 0.9 L (1.2-4.9) X10*3/uL Braxton # (Auto) 0.5 (0.1-1.2) X10*3/uL Eos # (Auto) 0.1 (0.0-0.4) X10*3/uL Baso # (Auto) 0.0 (0.0-0.2) X10*3/uL Abs Immat Gran (auto) 0.04 H (0.00-0.03) X10*3/uL Absolute Neuts (auto) 8.5 H (2.0-8.3) x10*3/uL Absolute Nucleated RBC 0.000 (0.0-0.012) X10*3/uL Nucleated RBC % (auto) 0.0 (0.0-0.2) /100WBC VBG pH 7.35 (7.32-7.43) VBG pCO2 47 mmHg VBG pO2 45 mmHg VBG HCO3 27 H (22-26) mmol/L VBG O2 Saturation 71.0 % VBG Base Excess 1.0 mmol/L Sodium 139 (135-145) mmol/L Potassium 3.7 (3.3-5.1) mmol/L Chloride 109 H (96-108) mmol/L Carbon Dioxide 23 (22-29) mmol/L Anion Gap 11 L (12-20) BUN 11 (9-16) mg/dL Creatinine 0.76 (0.5-1.4) mg/dL Estim Creat Clear Calc 149.2 Estimated GFR > 60 Random Glucose 114 (60-115) mg/dL Calcium 9.5 (8.4-10.2) mg/dL Total Bilirubin 0.3 (0.0-1.0) mg/dL AST 26 (5-31) U/L ALT 17 (0-31) U/L Alkaline Phosphatase 39 (39-117) U/L Total Protein 7.2 (6.5-8.0) g/dL Albumin 4.0 (3.5-5.0) g/dL Urine Color Yellow Urine Appearance Cloudy Urine pH 5.5 (5.0-9.0) Ur Specific [place] >= 1.030 H (1.005-1.025) Urine Protein Trace (Neg-Trace) mg/dL Urine Glucose (UA) Negative (Negative) mg/dL Urine Ketones Trace (Negative) mg/dL Urine Blood Negative (Negative) Urine Nitrite Negative (Negative) Ur Leukocyte Esterase Trace H (Negative) Urine RBC 0-2 (0-2) /HPF Urine WBC 6-10 H (0-5) /HPF Ur Squamous Epith Cells 11-20 (0-2) /HPF Urine Bacteria 3+ (None Seen) Hyaline Casts 0-2 (0-2) /LPF Salicylates < 5.0 L (15-30) mg/dL Urine Opiates Screen Not Detected (Not Detect) Ur Buprenorphine Scrn Not Detected (Not Detect) ng/mL Ur Oxycodone Screen Not Detected (Not Detect) ng/mL Urine Methadone Screen Not Detected (Not Detect) ng/mL Urine Fentanyl Screen Not Detected (Not Detect) Acetaminophen 25 (<30) mcg/mL Ur Barbiturates Screen Not Detected (Not Detect) Ur Phencyclidine Scrn Not Detected (Not Detect) Ur Amphetamines Screen Not Detected (Not Detect) U Benzodiazepines Scrn Not Detected (Not Detect) Urine Cocaine Screen Not Detected (Not Detect) U Marijuana (THC) Screen Not Detected (Not Detect) Ethyl Alcohol < 10 mg/dL Independent Interpretation I performed an independent interpretation of an: EKG Interpretation: Rate: 100 Rhythm: NSR [place]: normal Normal P waves. Normal KJ. Normal QRS complex. ST T wave : normal no FABY qTC: 443 prior studies: no acute ischemia The study has been interpreted contemporaneously by me. . External Record Review External record reviewed: Outpatient record Discharge Plan Discharge Clinical Impression: Suicidal ideation Patient Disposition: Still a Patient Prescriptions: No Action ibuprofen 600 mg tablet 600 mg PO Q6H PRN (Reason: pain) Qty: 30 0RF prazosin 1 mg Capsule 4 mg PO BEDTIME 30 Days Qty: 120 0RF Protocol: Hold for SBP< HOLD for SBP < : 90 albuterol sulfate [Ventolin HFA] 90 mcg/actuation Hfa Aerosol Inhaler 2 puff inhalation RQ4H PRN (Reason: shortness of breath or wheeze) 30 Days Qty: 1 0RF duloxetine 30 mg Capsule,Delayed Release(Dr/Ec) 30 mg PO DAILY 30 Days Qty: 30 0RF quetiapine 50 mg Tablet 50 mg PO BEDTIME 30 Days Qty: 30 0RF ferrous sulfate 324 mg (65 mg iron) Tablet,Delayed Release (Dr/Ec) 324 mg PO DAILY 30 Days Qty: 30 0RF ondansetron 4 mg tablet,disintegrating 4 mg PO Q8H PRN (Reason: nausea and vomiting) 4 Days Qty: 10 0RF dicyclomine 20 mg tablet 20 mg PO TID PRN (Reason: Abdominal Discomfort) Qty: 20 0RF amoxicillin-pot clavulanate 875-125 mg tablet 1 tab PO BID Qty: 20 0RF ibuprofen 600 mg tablet 600 mg PO Q6H PRN (Reason: fever or pain) Qty: 30 0RF doxycycline hyclate 100 mg tablet 100 mg PO BID Qty: 20 0RF mupirocin 2 % ointment 1 appl topical BID Qty: 15 0RF qmrmilqbvn-deghpxjvlvgqn-qngv 50-325-40 mg tablet 1 tab PO Q6H PRN (Reason: haeadace) Qty: 20 0RF Print Language: Vietnamese
[2024-03-15 00:29] LABS: Alanine Aminotransferase 17 U/L (0-31); Alkaline Phosphatase 39 U/L (39-117); Anion Gap 11 (12-20); Aspartate Amino Transferase 26 U/L (5-31); Bilirubin Total 0.3 mg/dL (0.0-1.0); Blood Urea Nitrogen 11 mg/dL (9-16); Calcium 9.5 mg/dL (8.4-10.2); Carbon Dioxide 23 mmol/L (22-29); Chloride 109 mmol/L (96-108); Creatinine Clr Calc Pharmacy 149.2; Estimated Glomerular Filt Rate > 60; Ethanol < 10 mg/dL; Glucose Random 114 mg/dL (60-115); Potassium 3.7 mmol/L (3.3-5.1); Sodium 139 mmol/L (135-145); Total Protein 7.2 g/dL (6.5-8.0)
[2024-03-15 00:41] LABS: Appearance Urine Cloudy; Color Urine Yellow; Glucose Urine UA Negative (Negative); Leukocyte Esterase Urine Trace (Negative); Nitrite Urine Negative (Negative); PH 5.5 (5.0-9.0); Specific Gravity - Urine >= 1.030 (1.005-1.025); UMIC TRIGGER UACC YES; Urine Blood Negative (Negative); Urine Ketones Trace mg/dL (Negative); Urine Protein Trace mg/dL (Neg-Trace)
[2024-03-15 00:42] LABS: Venous Blood Gas Refer to POC result
[2024-03-15 00:44] LABS: VBG HCO3 27 mmol/L (22-26); VBG pCO2 47 mmHg; VBG pH 7.35 (7.32-7.43); VBG pO2 45 mmHg
[2024-03-15 00:44] LABS: Bacteria Urine 3+ (None Seen); Hyaline Casts Urine 0-2 /LPF (0-2); RBC Urine 0-2 /HPF (0-2); UACC Culture Trigger YES
[2024-03-15 00:54] LABS: Amphetamine Screen Urine Not Detected (Not Detect); Barbiturates, Urine Not Detected (Not Detect); Benzodiazepines Screen Urine Not Detected (Not Detect); Buprenorphine Scr Not Detected (Not Detect); Cannabinoid Screen Urine Not Detected (Not Detect); Cocaine Screen Urine Not Detected (Not Detect); Fentanyl, urine Not Detected (Not Detect); Methadone Screen, Urine Not Detected (Not Detect); Opiate Screen Urine Not Detected (Not Detect); Oxycodone Screen Urine Not Detected (Not Detect); Phencyclidine Screen Urine Not Detected (Not Detect)
[2024-03-15 00:56] VITALS: BP 117/79; PULSE 80; RESP 16; O2SAT 98
[2024-03-15 01:02] LABS: Acetaminophen LAB 25 mcg/mL (<30); Salicylate < 5.0 mg/dL (15-30)
[2024-03-15 02:15] VITALS: BP 110/72; PULSE 67; RESP 12; TEMP 36.5; O2SAT 99
[2024-03-15 03:00] LABS: Acetaminophen LAB 27 mcg/mL (<30); Salicylate < 5.0 mg/dL (15-30)
--- NOTE | 2024-03-15 06:02 | PC.NURSE ---
patient trnaferred from main ed to pod, silent res[oding in head movements, declined all refreshments
--- NOTE | 2024-03-15 06:13 | PC.NURSE ---
[facility]
--- NOTE | 2024-03-15 07:02 | PC.NURSE ---
Assumed care of patient at 0645, patient appears to be sleeping, respirations even and unlabored, no apparent distress noted. Continue plan of care for CARE team grant
--- NOTE | 2024-03-15 11:28 | MHC.CARE ---
Patient evaluated by the CARE Team, disposition inpatient psychiatric treatment. ED provider, Dr. Rahman updated
[2024-03-15 12:04] LABS: UPreg QC Valid YES; Urine Pregnancy NEGATIVE (NEGATIVE)
[2024-03-15 14:30] VITALS: BP 124/62; PULSE 88; RESP 18; TEMP 36.6; O2SAT 98
[2024-03-15] MEDS: hydrOXYzine HCL 25 MG TABLET PO (14:53)
[2024-03-15 15:24] VITALS: BMI 35.2
--- NOTE | 2024-03-15 16:40 | PC.ADMIT ---
Addendum entered by Radha Franks RN 03/15/24 19:21: Pt agreed to having Flu vaccine but it was not yet administered due to her sleeping. Will endorse to oncoming night RN Original Note: Nadira Blakely (Nadira) is a 18 y/o female admitted to [facility]? from the ED? at 1418 with a dx of SI with attempt by OD, PTSD, and MDD. She was quiet, soft spoken, and withdrawn. She has a PMH of MDD, prior SA, PTSD, asthma with c/o SI and? overdose of pills of unknown type and quantity at 10 pm? last night. She self presented to the ED and was medically cleared. Pt has been unhoused since December and is not on any medications. She previously had an inpatient stay on [facility] in July. She smokes marijuana several times a day, is a non tobacco smoker, and drinks alcohol on special occasions (03/03). Skin and safety check performed and unremarkable. She rates depression 10/10 and anxiety 7/10, denies HI/AVH but does endorse vague SI without a plan. She reports she will inform staff if she has active SI with a? plan. She was cooperative with the admission process and signed a CV with Dr. Leal. Oriented to the unit, signed JOSSUE forms, completed menu selection, and accepted Flu vaccine. She asked for a fidget and journal and was accepting of prn hydroxyzine. Placed on q 15 min safety checks.?
[2024-03-15 20:00] VITALS: BP 93/59; PULSE 71; RESP 16; TEMP 36.3; O2SAT 98
--- NOTE | 2024-03-16 02:17 | PC.NURSE ---
Patient said she wanted her flu shot in the morning 03/16/24.
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
[2024-03-16 09:18] LABS: Estimated Average Glucose 80 mg/dL; Hemoglobin A1C 83.2342 umol/L; Hemoglobin A1c % 4.4 % (<6.0); Total Hemoglobin (HGBA1C) 3434.9492 umol/L
[2024-03-16 09:25] LABS: Cholesterol 150 mg/dL (<200); HDL Cholesterol 44 mg/dL (>40); LDL Cholesterol Calculated 94 mg/dL (<100); Magnesium 2.1 mg/dL (1.6-2.6); Triglycerides 62 mg/dL (<150)
[2024-03-16 09:39] LABS: Thyroid Stimulating Hormone 1.07 uIU/mL (0.32-4.0)
[2024-03-16 09:52] LABS: Folate 10.5 ng/mL (> or = 4.0); Vitamin B12 571 pg/mL (200-900)
[2024-03-16 10:24] VITALS: BP 97/55; PULSE 72; TEMP 36.8; O2SAT 97
[2024-03-16] MEDS: DULoxetine HCl 30 MG CAPSULE.DR PO (15:26)
[2024-03-16] MEDS: Flu Vacc TS2024-25(6mos up)/PF 0.5 ML SYRINGE IM (17:53)
[2024-03-16] MEDS: Acetaminophen 325 MG TABLET 650 MG PO (19:01)
[2024-03-16 19:42] VITALS: BP 115/65
[2024-03-16] MEDS: cloNIDine HCL 0.1 MG TABLET PO (19:42)
[2024-03-16 20:00] VITALS: BP 115/66; PULSE 67; RESP 16; TEMP 36.8; O2SAT 98
[2024-03-16] MEDS: Amoxicillin/Potassium Clav 875 MG TABLET PO (21:23)
[2024-03-17 08:00] VITALS: BP 116/70; PULSE 89; RESP 16; TEMP 36.8; O2SAT 96
[2024-03-17] MEDS: Amoxicillin/Potassium Clav 875 MG TABLET PO ×2 (08:43→21:11)
[2024-03-17] MEDS: DULoxetine HCl 30 MG CAPSULE.DR PO (08:43)
[2024-03-17] MEDS: Hydrocortisone 1 % Cream 28.35 GM TUBE 1 APPL TOPICAL (08:46)
[2024-03-17] MEDS: Cyclobenzaprine HCl 10 MG TABLET PO (14:26)
[2024-03-17 20:00] VITALS: BP 97/52; PULSE 74; RESP 16; TEMP 36.8; O2SAT 98
[2024-03-17] MEDS: cloNIDine HCL 0.1 MG TABLET PO (21:12)
--- NOTE | 2024-03-17 23:04 | HO.PSYCHPN ---
Subjective Subjective Date of Service: 03/17/24 Reason For Visit: PTSD, major depression, SI with attempt Interim History: met with pt; discussed with team pt reports she's feeling better and depression is mostly gone; she denies any SI at all. She says i just need someone to talk to and i'll be fine... pt is looking forward to therapy. She feels safe and is confident she will reach out for help next time if feeling unsafe. Pt is asking to DC to her grandmothers tomorrow. Pt feels medications are helpful and wants to continue. Mental Status Exam Mental Status Exam Narrative: Pt is alert and oriented; behavior is cooperative, friendly and calm; patient is not in distress; dressed in casual attire with adequate hygiene; mood is described as better and affect congruent, brighter, calm; eye contact appropriate; Speech is normal rate, volume and prosody and not pressured; no psychomotor agitation/retardation present; thought process is organized and goal directed; Thought content is on tx; otherwise pertinent to relevant topics and without any delusional content, paranoid ideations or grandiosity; denies any SI/HI. There is no evidence of perceptual disturbance. Patients insight and judgment fair. Diagnostics Vital Signs (24Hr): Vital Signs - 24 hr 03/17/24 08:00 03/17/24 20:00 Temperature 98.3 F 98.2 F Pulse Rate 89 74 Respiratory Rate 16 16 Blood Pressure 116/70 97/52 L Pulse Oximetry 96 98 Oxygen Delivery Method Room Air Room Air BMI result Body Mass Index 35.2 Labs 03/15/24 00:03 03/15/24 00:03 Labs: Laboratory Results - last 48 hr 03/16/24 08:38 Estimat Average Glucose 80 Hemoglobin A1c % 4.4 Magnesium 2.1 Triglycerides 62 Cholesterol 150 LDL Cholesterol, Calc 94 HDL Cholesterol 44 Vitamin B12 571 Folate 10.5 TSH 1.07 Free T4 1.00 Medications Medications Current Medications Acetaminophen (Acetaminophen 325 Mg Tablet) 650 mg PO Q6H PRN PRN Reason: Headache/Pain Mild Scale (1-3) Last Admin: 03/16/24 19:01 Dose: 650 mg Al Hydroxide/Mg Hydroxide (Magnesium Hydrox/Alum Hydrox 30 Ml Oral.Susp) 30 ml PO Q6H PRN PRN Reason: Heartburn/Nausea Albuterol Sulfate (Albuterol Sulfate 90 Mcg 8 Gm Inhaler) 2 puff INHALE RQ4H PRN PRN Reason: Shortness of Breath Amoxicillin/Clavulanate Potassium (Amoxicillin/Potassium Clav 875 Mg Tablet) 875 mg PO BID LISA Stop: 03/26/24 09:01 Last Admin: 03/17/24 21:11 Dose: 875 mg Clonidine HCl (Clonidine Hcl 0.1 Mg Tablet) 0.1 mg PO Q4H PRN; Protocol PRN Reason: anxiety Clonidine HCl (Clonidine Hcl 0.1 Mg Tablet) 0.1 mg PO BEDTIME LISA; Protocol Last Admin: 03/17/24 21:12 Dose: 0.1 mg Cyclobenzaprine HCl (Cyclobenzaprine Hcl 10 Mg Tablet) 10 mg PO TID PRN PRN Reason: Muscle Spasm Last Admin: 03/17/24 14:26 Dose: 10 mg Duloxetine HCl (Duloxetine Hcl 30 Mg Capsule.Dr) 30 mg PO DAILY LISA Last Admin: 03/17/24 08:43 Dose: 30 mg Hydrocortisone (Hydrocortisone 1 % Cream 28.35 Gm Tube) 1 appl TOPICAL DAILY LISA; Protocol Last Admin: 03/17/24 08:46 Dose: 1 appl Hydroxyzine HCl (Hydroxyzine Hcl 25 Mg Tablet) 25 mg PO Q6H PRN PRN Reason: Anxiety Last Admin: 03/15/24 14:53 Dose: 25 mg Magnesium Hydroxide (Milk Of Magnesia 30 Ml Oral.Susp) 30 ml PO DAILY PRN PRN Reason: Constipation Nicotine (Nicotine 21 Mg Patch.Td24) 21 mg TRANSDERMA DAILY PRN PRN Reason: nicotine cravings Nicotine Polacrilex (Nicotine Polacrilex 2 Mg Gum) 4 mg BUCCAL Q2H PRN PRN Reason: Nicotine Cravings Trazodone HCl (Trazodone Hcl 50 Mg Tablet) 50 mg PO BEDTIME MRX1 PRN PRN Reason: Insomnia Allergies Allergies Allergy/AdvReac Type Severity Reaction Status Date / Time Chocolate Allergy Severe Anaphylaxis Verified 03/14/24 23:54 Assessment & Plan Assessment & Plan (1) Major depressive disorder, recurrent, moderate: Status: Acute Code(s): F33.1 - Major depressive disorder, recurrent, moderate (2) Chronic post-traumatic stress disorder (PTSD): Status: Acute Code(s): F43.12 - Post-traumatic stress disorder, chronic (3) Asthma: Status: Acute Code(s): J45.909 - Unspecified asthma, uncomplicated (4) Homeless: Status: Acute Code(s): Z59.00 - Homelessness unspecified Plan Pt is a 18 you female with hx of depression, ptsd who presents for worsening depression and ptsd symptoms in face of homelessness. 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 Pt has been homeless, often on the street since December. She reports depression has steadily worsened as have flashbacks of past trauma. This past week, pt had verbal arguments with her sister and ex-partner which left her feeling increasingly lonely, abandoned and hopeless. She fleetingly wished she were and took an overdose of various pills (she's not sure what exactly). Pt regretted it immediately and self-presented (in hindsight, she knows she did not really want to be ). Pt denies any drug/alcohol use; denies AVH; denies hx of manic symptoms. Formulation/clinical reasoning: depression/ptsd hx worsened by psychosocial stressors and pt w/out meds or providers. She thinks her mood was better after her admission 2 years and agrees to restart Duloxetine (first started due to c/o body pains). Nightmares not helped much by prazosin so will try clonidine. 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 -pt says she is feeling better at this time, no SI and her grandmother has offered a patient to live w/ her...she is asking for DC rita. -she may be returning to baseline; will monitor Hospital course: 03/17 pt reports she's feeling better and depression is mostly gone; she denies any SI at all. She says i just need someone to talk to and i'll be fine... pt is looking forward to therapy. She feels safe and is confident she will reach out for help next time if feeling unsafe. Pt is asking to DC to her grandmothers tomorrow. Pt feels medications are helpful and wants to continue. pt is back to baseline; she is back on medications that have helped her and is discharging to live with her supportive grandmother. Pt very much wants discharge. Pt is not in imminent risk for harm to self or others and request for discharge honored. 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
--- NOTE | 2024-03-17 23:14 | P.DS_ITS ---
DS: Providers Provider Date of Service: 03/18/24 Date of admission: 03/15/24 13:55 Date of discharge: 03/18/24 Primary care physician: [facility] Attending physician on admission: Meng Leal Attending physician on discharge: Meng Leal DS: Diagnosis Discharge Diagnosis (1) Major depressive disorder, recurrent, moderate: Status: Acute (2) Chronic post-traumatic stress disorder (PTSD): Status: Acute (3) Asthma: Status: Acute (4) Homeless: Status: Resolved DS: Medications Discharge Medications Home Medications: Previous Rx's ?Medication ?Instructions ?Recorded albuterol sulfate 90 mcg/actuation 2 puff inhalation RQ4H PRN 03/17/24 aerosol inhaler (Ventolin HFA) Shortness Of Breath 30 days #6.7 grams amoxicillin 875 mg-potassium 1 tab PO BID 8 days #16 tabs 03/17/24 clavulanate 125 mg tablet clonidine HCl 0.1 mg tablet 0.1 mg PO Q4H PRN anxiety/insomnia 03/17/24 30 days #90 tabs cyclobenzaprine 10 mg tablet 10 mg PO TID PRN Muscle Spasm 30 03/17/24 days #90 tabs duloxetine 30 mg capsule,delayed 30 mg PO DAILY 30 days #30 caps 03/17/24 release hydrocortisone 1 % topical cream 1 appl topical DAILY PRN skin 03/17/24 irritation/rash 30 days #28.35 grams hydroxyzine HCl 25 mg tablet 25 mg PO Q6H PRN Anxiety 30 days 03/17/24 #90 tabs Mental Status Exam Mental Status Exam Narrative: Pt is alert and oriented; behavior is cooperative, friendly and calm; patient is not in distress; dressed in casual attire with adequate hygiene; mood is describ ed as good and affect congruent, brighter, calm; eye contact appropriate; Speech is normal rate, volume and prosody and not pressured; no psychomotor agitation/retardation present; thought process is organized and goal directed; Thought content is on tx; otherwise pertinent to relevant topics and without any delusional content, paranoid ideations or grandiosity; denies any SI/HI. There is no evidence of perceptual disturbance. Patients insight and judgment fair. Data Data Completed and Pending Completed studies during hospitalization [Text1]: 03/15/24 03/15/24 03/15/24 00:03 00:32 00:38 WBC 10.0 RBC 3.96 L Hgb 12.3 Hct 36.4 L MCV 91.9 MCH 31.1 MCHC 33.8 RDW 11.8 Plt Count 279 MPV 8.8 L Immature Gran % (Auto) 0.4 Neut % (Auto) 84.5 H Lymph % (Auto) 8.9 L [place] % (Auto) 5.4 Eos % (Auto) 0.5 Baso % (Auto) 0.3 Lymph # (Auto) 0.9 L [place] # (Auto) 0.5 Eos # (Auto) 0.1 Baso # (Auto) 0.0 Abs Immat Gran (auto) 0.04 H Absolute Neuts (auto) 8.5 H Absolute Nucleated RBC 0.000 Nucleated RBC % (auto) 0.0 VBG pH 7.35 VBG pCO2 47 VBG pO2 45 VBG HCO3 27 H VBG O2 Saturation 71.0 VBG Base Excess 1.0 Sodium 139 Potassium 3.7 Chloride 109 H Carbon Dioxide 23 Anion Gap 11 L BUN 11 Creatinine 0.76 Estim Creat Clear Calc 149.2 Estimated GFR > 60 Random Glucose 114 Estimat Average Glucose Hemoglobin A1c % Calcium 9.5 Magnesium Total Bilirubin 0.3 AST 26 ALT 17 Alkaline Phosphatase 39 Total Protein 7.2 Albumin 4.0 Triglycerides Cholesterol LDL Cholesterol, Calc HDL Cholesterol Vitamin B12 Folate TSH Free T4 Urine Color Yellow Urine Appearance Cloudy Urine pH 5.5 Ur Specific [place] >= 1.030 H Urine Protein Trace Urine Glucose (UA) Negative Urine Ketones Trace Urine Blood Negative Urine Nitrite Negative Ur Leukocyte Esterase Trace H Urine RBC 0-2 Urine WBC 6-10 H Ur Squamous Epith Cells 11-20 Urine Bacteria 3+ Hyaline Casts 0-2 Urine Test NEGATIVE Salicylates < 5.0 L Urine Opiates Screen Not Detected Ur Buprenorphine Scrn Not Detected Ur Oxycodone Screen Not Detected Urine Methadone Screen Not Detected Urine Fentanyl Screen Not Detected Acetaminophen 25 Ur Barbiturates Screen Not Detected Ur Phencyclidine Scrn Not Detected Ur Amphetamines Screen Not Detected U Benzodiazepines Scrn Not Detected Urine Cocaine Screen Not Detected U Marijuana (THC) Screen Not Detected Ethyl Alcohol < 10 03/15/24 03/16/24 02:03 08:38 WBC RBC Hgb Hct MCV MCH MCHC RDW Plt Count MPV Immature Gran % (Auto) Neut % (Auto) Lymph % (Auto) [place] % (Auto) Eos % (Auto) Baso % (Auto) Lymph # (Auto) [place] # (Auto) Eos # (Auto) Baso # (Auto) Abs Immat Gran (auto) Absolute Neuts (auto) Absolute Nucleated RBC Nucleated RBC % (auto) VBG pH VBG pCO2 VBG pO2 VBG HCO3 VBG O2 Saturation VBG Base Excess Sodium Potassium Chloride Carbon Dioxide Anion Gap BUN Creatinine Estim Creat Clear Calc Estimated GFR Random Glucose Estimat Average Glucose 80 Hemoglobin A1c % 4.4 Calcium Magnesium 2.1 Total Bilirubin AST ALT Alkaline Phosphatase Total Protein Albumin Triglycerides 62 Cholesterol 150 LDL Cholesterol, Calc 94 HDL Cholesterol 44 Vitamin B12 571 Folate 10.5 TSH 1.07 Free T4 1.00 Urine Color Urine Appearance Urine pH Ur Specific [place] Urine Protein Urine Glucose (UA) Urine Ketones Urine Blood Urine Nitrite Ur Leukocyte Esterase Urine RBC Urine WBC Ur Squamous Epith Cells Urine Bacteria Hyaline Casts Urine Test Salicylates < 5.0 L Urine Opiates Screen Ur Buprenorphine Scrn Ur Oxycodone Screen Urine Methadone Screen Urine Fentanyl Screen Acetaminophen 27 Ur Barbiturates Screen Ur Phencyclidine Scrn Ur Amphetamines Screen U Benzodiazepines Scrn Urine Cocaine Screen U Marijuana (THC) Screen Ethyl Alcohol 03/15/24 Unknown Urine clean catch - Clean Catch Midstream Urine Culture - Final DS: Summary Hospital Course Hospital Course: Pt is a 18 you female with hx of depression, ptsd who presents for worsening depression and ptsd symptoms in face of homelessness. 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 Pt has been homeless, often on the street since December. She reports depression has steadily worsened as have flashbacks of past trauma. This past week, pt had verbal arguments with her sister and ex-partner which left her feeling increasingly lonely, abandoned and hopeless. She fleetingly wished she were and took an overdose of various pills (she's not sure what exactly). Pt regretted it immediately and self- presented (in hindsight, she knows she did not really want to be ). Pt denies any drug/alcohol use; denies AVH; denies hx of manic symptoms. Formulation/clinical reasoning: depression/ptsd hx worsened by psychosocial stressors and pt w/out meds or providers. She thinks her mood was better after her admission 2 years and agrees to restart Duloxetine (first started due to c/o body pains). Nightmares not helped much by prazosin so will try clonidine. 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 -pt says she is feeling better at this time, no SI and her grandmother has offered a patient to live w/ her...she is asking for DC rita. -she may be returning to baseline; will monitor Hospital course: 03/17 pt reports she's feeling better and depression is mostly gone; she denies any SI at all. She says i just need someone to talk to and i'll be fine... pt is looking forward to therapy. She feels safe and is confident she will reach out for help next time if feeling unsafe. Pt is asking to DC to her grandmothers tomorrow. Pt feels medications are helpful and wants to continue. pt is back to baseline; she is back on medications that have helped her and is discharging to live with her supportive grandmother. Pt very much wants discharge. Pt is not in imminent risk for harm to self or others and request for discharge honored. Time spent discussing smoking cessation with patient: 3 to 10 minutes Status at Discharge Functional status at discharge: independent ambulation Overall status at discharge: patient is back to baseline Time Spent with Patient Time attestation: Total time managing care of this patient today ____ minutes. Time spent: Less than 30 minutes Discharge Plan Discharge Anticipated Discharge Date/Time: 03/18/24 11:14 Patient Disposition: Home, Self-Care Discharge Diagnosis: MDD, recurrent, moderate in full remission Referrals: [facility] [Other] - 3 Weeks (Please plan to follow up with them after you return from [facility] in early April. You have a referral placed with them and they will be expecting a call from you to set up an appointment for your intake. You will not be able to secure therapy or medication management until you call and set the intake appointment up.) [facility] [Other] - 1 Week ([facility] empowers people with disabilities to live life on their own terms. Our programs and services expand possibilities in careers and training, home and community life, and legal rights and benefits ? including disability determination for federal programs. ) [facility] [Other] - 1 Week (This is a day program that lasts about two weeks and includes groups in a therapeutic environment and can help with coping skills and day structure while you wait to get a therapist. ) [place] [Primary Care Provider] - 1 Week Discharge Medications: New amoxicillin-pot clavulanate 875-125 mg Tablet 1 tab PO BID 8 Days Qty: 16 0RF albuterol sulfate [Ventolin HFA] 90 mcg/actuation Hfa Aerosol Inhaler 2 puff inhalation RQ4H PRN (Reason: Shortness Of Breath) 30 Days Qty: 6.7 0RF cyclobenzaprine 10 mg Tablet 10 mg PO TID PRN (Reason: Muscle Spasm) 30 Days Qty: 90 0RF clonidine HCl 0.1 mg Tablet 0.1 mg PO Q4H PRN (Reason: anxiety/insomnia) 30 Days Qty: 90 0RF Protocol: Hold for SBP< HOLD for SBP < : 90 Rx Instructions: take during the day and at bedtime as needed for anxiety or insomnia duloxetine 30 mg Capsule,Delayed Release(Dr/Ec) 30 mg PO DAILY 30 Days Qty: 30 1RF hydroxyzine HCl 25 mg Tablet 25 mg PO Q6H PRN (Reason: Anxiety) 30 Days Qty: 90 0RF hydrocortisone 1 % Cream 1 appl topical DAILY PRN (Reason: skin irritation/rash) 30 Days Qty: 28.35 0RF Protocol: Apply to: Apply to: affected facial areas Rx Instructions: apply to affected areas on face daily as needed Discharge Orders: Discharge Order (Routine); Ordered 03/18/24 Ordered By: Meng Leal Diet: Regular diet Activity on Discharge: As tolerated Stand Alone Forms: Patient Portal Discharge page, Community Support Print Language: Palau[place] Care Plan Goals: Maintain mood and safe behaviors Take medications as prescribed Practice coping skills Continue with outpatient providers and reach out to them as needed Health Concerns: Mood stability and behaviors Chronic muscle/joint pain Plan of Treatment: Follow up with your PCP, psychiatric provider and other outpatient providers regarding above concerns Take medications as prescribed Assessment: Risk assessment at time of discharge:? Patient was interviewed prior to discharge and found to be fully oriented and without any SI or HI. Patient has improved insight and judgment and wants to continue treatment. Patient is not in imminent risk of harm to self or others and has a safety plan that includes presenting to the closest ER or calling 911 if feeling unsafe.? Patient has been observed closely by nursing and unit staff throughout admission; patient has not engaged in any behaviors that suggest dangerousness to self or others and has demonstrated appropriate behaviors and impulse control Discharge Date/Time: 03/18/24 10:56
[2024-03-18 08:00] VITALS: BP 104/55; PULSE 83; RESP 18; TEMP 36.3; O2SAT 99
[2024-03-18] MEDS: DULoxetine HCl 30 MG CAPSULE.DR PO (08:27)
[2024-03-18] MEDS: Amoxicillin/Potassium Clav 875 MG TABLET PO (08:27)
[2024-03-18] MEDS: Cyclobenzaprine HCl 10 MG TABLET PO (08:30)
== END 2024-03-18 10:56 | disposition home or self-care (01) | DRG 751 ==
LOC: HO.ED 03-15 05:55 → HO.PM5 03-15 14:06
PROVIDERS: Emergency Medicine; Admitting Provider Clinical Nurse Specialist Psychiatric/Mental Health, Adult; Emergency Provider Emergency Medicine; Visit Provider Psychiatry & Neurology Psychiatry
DX: F33.1 Major depressive disorder, recurrent, moderate (principal); R45.851 Suicidal ideations; F43.12 Post-traumatic stress disorder, chronic; J45.909 Unspecified asthma, uncomplicated; Z23 Encounter for immunization; Z59.02 Unsheltered homelessness; Z79.899 Other long term (current) drug therapy
CPT/HCPCS: 36415; 80053; 80061; 80143; 80179; 80307; 81001; 81025; 82607; 82746; 82803; 83036; 83735; 84439; 84443; 85025; 87086; 90656; 93005; 99285

== ENCOUNTER → 2024-03-14 23:49 | Outpatient (BNV) | payer MEDICAID, SELFPAY | PROVIDERS: Admitting Provider Clinical Nurse Specialist Psychiatric/Mental Health, Adult; Emergency Provider Emergency Medicine; Visit Provider Internal Medicine Cardiovascular Disease | DX: R06.02 Shortness of breath (principal) | CPT/HCPCS: 93010 ==

== ENCOUNTER → 2024-03-15 13:55 | Outpatient (BNV) | payer OTHER, SELFPAY | PROVIDERS: Admitting Provider Clinical Nurse Specialist Psychiatric/Mental Health, Adult; Emergency Provider Emergency Medicine; Visit Provider Psychiatry & Neurology Psychiatry | DX: F33.1 Major depressive disorder, recurrent, moderate (principal); F43.12 Post-traumatic stress disorder, chronic; J45.909 Unspecified asthma, uncomplicated; Z59.00 Homelessness unspecified | CPT/HCPCS: 99232 ==

== ENCOUNTER 2024-04-12 16:22 | Outpatient (REF) | payer OTHER, SELFPAY ==
[2024-04-14 04:48] LABS: CT PCR NOT DETECTED (Not Detect.); NG PCR NOT DETECTED (Not Detect.)
[2024-04-14 11:54] LABS: Bacterial Vaginosis PCR POSITIVE (Negative); Candida Group PCR DETECTED (Not Detect); Candida glab krusei PCR NOT DETECTED (Not Detect); Trichomonas vaginalis PCR NOT DETECTED (Not Detect)
== END 2024-04-12 16:23 | disposition home or self-care (01) ==
LOC: HO.LNP 16:22
PROVIDERS: Visit Provider Pediatrics
DX: R11.0 Nausea (principal); Z11.3 Encounter for screening for infections with a predominantly sexual mode of transmission
CPT/HCPCS: 81515; 87491; 87591

== ENCOUNTER 2024-04-13 11:25 | Outpatient (REF) | payer OTHER, SELFPAY ==
[2024-04-13 13:10] LABS: MANUAL DIFF FLAG NO
[2024-04-13 13:15] LABS: Basophils Percent Auto 0.5 % (0-2); Eosinophils Absolute Auto 0.1 X10*3/uL (0.0-0.4); Hematocrit 38.8 % (37.0-47.0); Hemoglobin 13.2 g/dl (12.0-16.0); Imm Gran Abs Auto 0.02 X10*3/uL (0.00-0.03); Imm Gran Pct Auto 0.3 % (0.0-0.4); Lymphocytes Percent Auto 16.9 % (20-40); Mean Corpuscular Hemoglobin 31.2 pg (27.0-33.0); Mean Corpuscular Volume 91.7 fL (80.0-98.0); Mean Platelet Volume 9.8 fL (9.4-12.3); Monocytes Absolute Auto 0.5 X10*3/uL (0.1-1.2); Monocytes Percent Auto 7.9 % (2-11); Neutrophils Absolute Auto 4.4 x10*3/uL (2.0-8.3); Neutrophils Percent Auto 72.4 % (45-73); Platelet Count 258 X10*3/uL (160-400); Red Blood Count 4.23 X10*6/uL (4.20-5.50); White Blood Count 6.1 X10*3/uL (4.8-10.8)
[2024-04-13 13:45] LABS: Alanine Aminotransferase 19 U/L (0-31); Albumin Level 4.2 g/dL (3.5-5.0); Alkaline Phosphatase 39 U/L (39-117); Anion Gap 13 (12-20); Aspartate Amino Transferase 18 U/L (5-31); Bilirubin Total 0.5 mg/dL (0.0-1.0); Blood Urea Nitrogen 10 mg/dL (9-16); Carbon Dioxide 22 mmol/L (22-29); Chloride 111 mmol/L (96-108); Estimated Glomerular Filt Rate > 60; Glucose Random 93 mg/dL (60-115); HCG Quantitative < 2 mIU/mL; Lipase 12 U/L (8-78); Potassium 4.2 mmol/L (3.3-5.1); Sodium 142 mmol/L (135-145); Total Protein 7.2 g/dL (6.5-8.0)
[2024-04-13 13:52] LABS: Syphilis Screen Nonreactive (Nonreactive)
[2024-04-13 13:58] LABS: HBsAGNum1 0.38 S/CO (0.00-0.99); HIV AB/AG Nonreactive (Nonreactive); HIV Num 1 0.08 S/CO (0.00-0.99); Hepatitis B Surface Antigen Negative (Negative); ~HepC Num1 0.16 S/CO (0.00-0.79); ~Hepatitis C Antibody Nonreactive (Nonreactive)
== END 2024-04-13 11:26 | disposition home or self-care (01) ==
LOC: HO.HHCL 11:25
PROVIDERS: Visit Provider Pediatrics
DX: Z20.2 Contact with and (suspected) exposure to infections with a predominantly sexual mode of transmission (principal); R11.0 Nausea
CPT/HCPCS: 36415; 80053; 83690; 84702; 85025; 86780; 86803; 87340; 87389

== ENCOUNTER 2025-01-10 14:22 | Outpatient (REF) | payer OTHER, SELFPAY ==
--- NOTE | ~2025-01-10 | XR_ITS ---
EXAMINATION: XR FOOT, LEFT CLINICAL INFORMATION: pain COMPARISON: None available. TECHNIQUE: AP, lateral, and oblique views of the left foot. FINDINGS: The bones and soft tissues are normal. No fracture. Alignment is anatomic. Joint spaces are maintained. XR/XR foot LT min 3V IMPRESSION: Normal left foot. Electronically signed by: Joseluis Junior MD 01/10/2025 04:00 PM EDT
--- NOTE | ~2025-01-10 | XR_ITS ---
EXAMINATION: XR ANKLE, RIGHT CLINICAL INFORMATION: pain COMPARISON: None available. TECHNIQUE: AP, lateral, and mortise views of the right ankle. FINDINGS: No fracture. Alignment is anatomic. No erosions. Joint spaces are maintained. Soft tissues are normal. XR/XR ankle RT min 3V IMPRESSION: Normal right ankle. Electronically signed by: Joseluis Junior MD 01/10/2025 04:00 PM EDT
--- NOTE | ~2025-01-10 | XR_ITS ---
EXAMINATION: XR ANKLE, LEFT CLINICAL INFORMATION: pain COMPARISON: 11/21/2023. TECHNIQUE: AP, lateral, and mortise views of the left ankle. FINDINGS: No fracture. Alignment is anatomic. No erosions. Joint spaces are maintained. Soft tissues are normal. XR/XR ankle LT min 3V IMPRESSION: Normal left ankle. Electronically signed by: Joseluis Junior MD 01/10/2025 03:59 PM EDT
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
--- OUTSIDE RECORDS SUMMARY | 2025-01-10 17:45 | XMS_ITS | Encounter Summary ---
Author Organization [employer] Address [address] [facility] [address] [place] [address] Care Team Providers Care Canteen Operator Name Role Phone Minerva Bailey MD Primary Care Provider +1- [phone] Encounter Details Date Type Department Care Team (Late st Contact Info) Description 01/10/2025 Results Follow-Up [facility] [address] [place], [place] [phone] Belen Kohler MD [address] [place] [address] XR Ankle 3+ Views Left Social History Tobacco Use Types Packs/Day Years [...] the past 12 months, has t he electric, gas, oil or water company threatened to [...] PM EDT documented as of this encounter Miscellaneous Notes * Telephone Encounter - Cherri Mcclain RN - 01/10/2025 4:22 PM EDT TC placed to pt and she was informed of normal x-ray readings ----- Message from Belen Wallace MD sent at 01/10/2025 4:11 PM EDT ----- Let patient know XRAYs are normal thank you ----- Message ----- From: Interface, Ris Results In Sent: 01/10/2025 4:03 PM EDT To: Belen Wallace MD documented in this encounter Plan of Treatment Upcoming Encounters Date Type Department Care Team (Late st Contact Info) Description 02/09/2025 9:30 AM EST Office Visit [facility] [address] [place] [address] Minerva Bailey MD [address] [place] [address] documented as of this encounter Visit Diagnoses Not on filedocumented in this encounter Additional Health Concerns Assessment Noted Time PHQ-9 Depression Total Score: 18 025 11:05 AM EST documented as of this encounter Care Teams Canteen Operator Relationship Specialty Start Date End Date Minerva Bailey MD [address] [place] [address] PCP - General Family Medicine 07/06/23 documented as of this encounter
--- OUTSIDE RECORDS SUMMARY | 2025-01-10 17:45 | XMS_ITS | Encounter Summary ---
Author Organization [employer] Address [address] [place] [address] [place] [address] Care Team Providers Care Spa Attendant Name Role Phone Minerva Bailey MD Primary Care Provider +1- [phone] Reason for Visit * Reason Onset Date Comments New patient 02/04/2023 Encounter Details Date Type Department Care Team (Late st Contact Info) Description 02/04/2023 Telephone [facility] [address] [place] [address] [phone] Willie Mcclellan MD [address] [place] [phone] New patient Social History Tobacco Use Types Packs/Day Years Used Date Smoking Tobacco: Never Passive Smoke Exposure: Never Smokeless Tobacco: Never Comments Unknown Sex and Gender Information Value Date Recorded Sex Assigned at Female 10/22/2023 6:28 PM EDT Legal Sex Female 6:04 PM EDT Gender Identity Female 10/22/2023 6:28 PM EDT Sexual Orientation Straight 10/22/2023 6: 28 PM EDT documented as of this encounter Miscellaneous Notes * Telephone Encounter - Renata Allen - 02/04/2023 4:02 PM EDT Pt 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 EFFECTIVE SINCE 02/04/2023 documented in this encounter Plan of Treatment Upcoming Encounters Date Type Department Care Team (Late st Contact Info) Description 02/09/2025 9:30 AM EST Office Visit [facility] [address] [place] [address] Minerva Bailey MD [address] [place] [address] documented as of this encounter Visit Diagnoses Not on filedocumented in this encounter Care Teams Spa Attendant Relationship Specialty Start Date End Date Minerva Bailey MD [address] [place] [phone] PCP - General Family Medicine 07/06/23 documented as of this encounter
--- OUTSIDE RECORDS SUMMARY | 2025-01-10 17:45 | XMS_ITS | Clinical Summary ---
Author Organization [employer] Address [address] [facility] [address] [place] [address] Care Team Providers Care Validation Leader Name Role Phone Minerva Bailey MD Primary Care Provider [phone] Allergies Active Allergy Reactions Criticality Noted Date Comments Chocolate Cough,Dizziness,Hive s,Itching,Rash,Halley rtness of breath,Swelling,Unknown,Wheezing High 07/06/2023 Medications * This document contains information received from the source organization and may not represent a complete record from that organization. sertraline (Zoloft) 50 MG tabletIndications :Moderate episode of recurrent major depressive disorder (CMS/HCC) (HCC) Take 1 tablet (50 mg) by mouth Once per day. 90 tablet 3 024 Active cyclobenzaprine (Flexeril) 10 MG tabletIndications :Chronic bilateral low back pain without sciatica One tab po at bedtime prn pain of muscles, do not drive with medicaion 30 tablet 024 Active sennosides (Senokot) 8.6 MG tabletIndications :Constipation, unspecified constipation type 1-2 tabs po nightly prn constipation 60 tablet 11 024 Active SUMAtriptan (Imitrex) 25 MG tabletIndications :Other migraine without status migrainosus, not intractable Take 1 tablet (25 mg) by mouth 1 (one) time if needed for migraine for up to 1 dose. May repeat dose once in 2 hours if no relief. Do not exceed 2 doses in 24 hours. 9 tablet 024 Active selenium sulfide (Selsun) 2.5 % shampooIndication s:Dandruff Use three times a week in shower. Lather on scalp, leave 5 min then rinse 118 mL 2 05/06/2 024 Active triamcinolone (Kenalog) 0.1 % creamIndications: Flexural atopic dermatitis Apply topically if needed in the morning and at bedtime (pain and swelling). 30 g 2 024 Active ketoconazole (Nizoral) 2 % shampooIndication s:Seborrheic dermatitis Apply topically 2 (two) times a week. 120 mL 1 024 Active betamethasone, augmented, (Diprolene) 0.05 % ointmentIndicatio ns:Psoriasiform dermatitis Apply topically 2 times daily. 45 g 2 024 Active Fluocinolone Acetonide Scalp ([place]-Smoothe/FS Scalp) 0.01 % oilIndications:Ps oriasiform dermatitis Apply on damp hair 3 times weekly at night, cover with head scarf 118.28 mL 2 024 Active ibuprofen 600 MG tabletIndications :Acute pain of left wrist Take 1 tablet (600 mg) by mouth every 6 (six) hours if needed for mild pain. 30 tablet 1 024 Active ondansetron ODT (Zofran-ODT) 8 MG disintegrating tabletIndications :Nausea 1 tab under tongue q 8 hours prn nausea or vomiting. 10 tablet 025 Active clindamycin (Clindagel) 1 % gelIndications:Hi dradenitis suppurativa Apply topically Once per day. 60 g 2 025 2025 Active Ventolin HFA 108 (90 Base) MCG/ACT inhalerIndication s:Mild intermittent asthma without complication INHALE 2 PUFFS BY MOUTH EVERY 6 HOURS 18 g 2 025 Active acetaminophen (Tylenol Extra Strength) 500 MG tabletIndications :Acute left ankle pain,Acute right ankle pain,Pain of toe of left foot Take 2 tablets (1,000 mg) by mouth every 8 (eight) hours if needed for moderate pain for up to 10 days. 30 tablet 025 2024 Active omeprazole (PriLOSEC) [address] capsuleIndication s:Epigastric abdominal pain TAKE 1 CAPSULE BY MOUTH DAILY FOR 3 MONTHS 30 capsule 2 025 Active doxycycline (Vibra-Tabs) 100 MG tabletIndications :Hidradenitis suppurativa Take 1 tablet (100 mg) by mouth 2 times daily. Take with a full glass of water and do not lie down for at least 30 minutes after. 120 tablet 025 2024 Active Ventolin HFA 108 (90 Base) MCG/ACT inhalerIndication s:Mild intermittent asthma without complication INHALE 2 PUFFS BY MOUTH EVERY 6 HOURS 18 g 2 024 2024 Discontinued(R eorder (will not trigger notification to Pharmacy)) omeprazole (PriLOSEC) [address] capsuleIndication s:Epigastric abdominal pain TAKE 1 CAPSULE BY MOUTH DAILY FOR 3 MONTHS 30 capsule 2 025 2024 Discontinued(R eorder (will not trigger notification to Pharmacy)) Active Problems Problem Noted Date Diagnosed Date Acute right ankle pain 01/10/2025 Pain of toe of left foot 01/10/2025 Hidradenitis suppurativa 05/04/2024 Overview (05/04/2024): -trial of clindamycin gel05/04/24 Assessment & Plan (05/04/2024 11:37 AM EST): -trial of clindamycin gel05/04/24 Eczema 09/04/2023 Seborrheic dermatitis 09/04/2023 Other specified health status 07/06/2023 Overview (08/10/2023): -next physical exam due after 07/07/2024 -eye care facilitated by [facility] is [facility] care proxy filed on 08/10/2023 Assessment & Plan (05/04/2024 11:37 AM EST): -next physical exam due after 07/07/2024 -eye care facilitated by [facility] is [facility] proxy filed on 08/10/2023 Assessment & Plan (08/10/2023 10:20 AM EDT): -next physical exam due after 07/07/2024 -eye care facilitated by [facility] -dental home is [facility] -[facility] care proxy filed on 08/10/2023 Severe episode of recurrent major depressive disorder, without psychotic features ([facility] 06/12/2023 Overview (05/04/2024): Suspect concurrent diagnosis such as ASD or cognitive delay. No testing on file. Denies suicidial or homacidial ideation. On waiting list for therapist and psychiatrist. Seen by [facility] again 08/10/23. -will see if testing done by school system and request records -multiple suicide attempts most recent 03/2024 -seen by [facility] 05/04/24 to establish care Assessment & Plan (05/04/2024 11:36 AM EST): Suspect concurrent diagnosis such as ASD or cognitive delay. No testing on file. Denies suicidial or homacidial ideation. On waiting list for therapist and psychiatrist. Seen by [facility] again 08/10/23. -will see if testing done by [employer] system and request records -multiple suicide attempts most recent 03/2024 -seen by [facility] 05/04/24 to establish care Assessment & Plan (08/10/2023 12:08 PM EDT): Suspect concurrent diagnosis such as ASD or cognitive delay. NO testing on file. Denies suicidial or homacidial ideation. On waiting list for therapist and psychiatrist. Seen by [facility] again 08/10/23. -will see if testing done by school system and request records Assessment & Plan (06/12/2023 1:58 PM EST): depressed mood, changes in sleep sleeping too much, change in appetite or weight overeating, psychomotor retardation, trouble concentrating, fatigue/loss of energy, worthlessness , passive suicidal ideation w/o plan, excessive worry/anxiety, difficulty controlling worry, restless/keyed up/On edge, easily fatigued, difficulty concentrating/Mind going blank , irritability, and sleep disturbance sleeping too much, and Flashbacks, Intrusive trauma memories and thoughts, Nightmares/night terrors, Hypervigilance, Avoidance of trauma reminders/triggers, Increased startle response, Fear and distrust in relationships, Isolation from normal social supports, Difficulty with crowds, and Feelings of impending doom PLAN: New/Additional Services needed Off-site services for Behavioral Health Integration Plan External OP therapy referral Patient Self Plan Patient to utilize skills provided in intervention , [facility], and Patient to reach out to [facility] as needed PTSD (post-traumatic stress disorder) 06/12/2023 History of suicidal behavior 06/12/2023 Chronic pain of both knees 05/19/2023 Assessment & Plan (05/19/2023 11:16 AM EST): No swelling, no erythema, will refer to PT Left ankle pain 01/17/2023 Assessment & Plan (01/17/2023 8:52 AM EDT): Chronic L ankle pain for months. -from obtained records today --> had left ankle XR in 07/02/2022 no fracture or malalignment Possible ligament injury. -Advise to avoid weight bearing. -Pt refusing to use elastic bands due to worsening discomfort. -Tylenol PRN -NSAIDs PRN -Advise pt to schedule apt w her PCP as soon as possible, to have ortho referral, given the one done here at the last [facility] evaluation cannot be processed since we are not her PCP. -Gave letter today for 1 wk of rest from work so that she can reach her PCP for further management and recommendations. Vitamin D deficiency 05/29/2016 Chronic low back pain 03/07/2016 Assessment & Plan (05/19/2023 11:15 AM EST): Continue home remedies, RICE, will refer for physical therapy Visual impairment 03/07/2016 Resolved Problems Problem Noted Date Diagnosed Date Resolved Date Moderate anxiety 01/17/2023 05/04/2024 Assessment & Plan (05/19/2023 11:15 AM EST): Denied suicidal/homicidal ideas, will refer to Assessment & Plan (01/17/2023 8:53 AM EDT): Reports Hx of depression / anxiety. Denies SI. -Already f w psychotherapist. -States that she used to be on Sertraline 50 mg, but off meds for >4 mo. -Recommended pt to continue care w PCP for management. Asthma 01/17/2023 05/04/2024 Assessment & Plan (01/17/2023 8:54 AM EDT): Asymptomatic at this time. -Pt requesting Albuterol refills today until she can see her PCP. Deprivation of food 12/01/2016 04/12/19 25 Flexural atopic dermatitis 03/07/2016 0 04/12/2024 Childhood obesity 03/07/2016 08/10/2023 Encounters Date Type Department Care Team Description 01/10/2025 2:00 PM EDT Office Visit [facility] [address] [place] [address] Belen Kohler MD Mild intermittent asthma without complication; Acute left ankle pain; Acute right ankle pain; Pain of toe of left foot; Epigastric abdominal pain; Hidradenitis suppurativa 01/10/2025 Results Follow-Up [facility] [address] [place] [address] Belen Kohler MD XR Ankle 3+ Views Left 01/10/2025 Travel 11/02/2024 1:00 PM EDT Office Visit [facility] OPTOMETRY [address] [place] [address] Chilango, Alejandra, OD Myopia of both eyes (Primary Dx) 11/02/2024 Travel from Last 3 Months Immunizations Immunization Administration Dates Next Due DTaP 10/20/2005 DTaP, 5 pertussis antigens 12/20/2007,,2003,08/13 HPV 9-Valent 03/07/2016,06/23/2014 Hep A, ped/adol, 2 dose 12/20/2007,12/15/2006 Hep B, Adolescent or Pediatric 4,2003,2003,06/09 HiB, unspecified 2003 Hib (HbOC) 10/15/2004, 4,2003,08/13 IPV 12/20/2007, 4,2003,08/13 Influenza injectable quadriv alent preservative free 03/11/2018,01/26/2017,03/07/2016 MMR 12/20/2007,06/20/2004 Meningococcal MCV4P ACYW-135 06/23/2014 Pfizer Covid-19 Vaccine 12+ 07/06/2023 Pneumococcal Conjugate PCV 13 10/15/2004 ,2003,2003,08/13 Pneumococcal Conjugate PCV 20 07/06/2023 Pneumococcal Conjugate PCV 7 10/15/2004, 2003,2003,08/13 Tdap 06/23/2014 Varicella 12/20/2007,06/20/2004 Family History Medical History Relation Name Comments Breast cancer Maternal Grandmother Diabetes Mother's Brother Relation Name Status Comments Maternal Grandmother Mother's Brother Social History Tobacco Use Types Packs/Day Years Used Date Smoking Tobacco: Never Passive Smoke Exposure: Never Smokeless Tobacco: Never Tobacco Cessation:Counseling Given: Not Answered Alcohol Use Standard Drinks/Week Comments Never 0 (1 standard drink = 0.6 oz pur e alcohol) Depression Answer Date Recorded Patient Health Questionnaire-9 Score 05/04/2024 Patient Health Questionnaire-9 Score 18 05/04/2024 Last PHQ-9: Questionnaire Data Not on file 0 05/04/2024 Housing Stability Answer Date Recorded What is your housing situation today? I have margarettejase elena 10/22/[address] you [...] Orientation Straight 10/22/2023 6: 28 PM EDT Last Filed Vital Signs Vital Sign Reading Time Taken Comments Blood Pressure 102/68 01/10/2025 1:53 PM EDT Pulse 96 01/10/2025 1:53 PM EDT Temperature 36.5 C (97.7 F) 01/10/2025 1:53 PM EDT Respiratory Rate 20 01/10/2025 1:53 PM EDT Oxygen Saturation 98% 05/04/2024 9:29 AM EST Inhaled Oxygen Concentration - - Weight 118 kg (260 lb) 01/10/2025 1:53 PM EDT Height 177.8 cm (5' 10 ) 05/04/2024 9:29 AM EST Body Mass Index 37.31 05/04/2024 9:29 AM EST Plan of Treatment Upcoming Encounters Date Type Department Care Team (Late st Contact Info) Description 02/09/2025 9:30 AM EST Office Visit [facility] [address] [place] [address] Minerva Bailey MD [address] [place] [address] Health Maintenance Due Date Last Done Comments Disability Screening 2003 Meningococcal B Vaccine (1 of 2 - Standard) 2019 Pap Smear 06/09/2024 DTaP/Tdap/Td Vaccines (7 - Td or Tdap) 06/23/2024 06/23/2014, 12/20/2007, 10/20/2005, Additional history exists SDOH Screening 10/13/2024 10/14/2023 Depression Monitoring 11/01/2024 05/04/2024, 025 COVID-19 Vaccine ( season) 2024 07/06/2023, 04/26/2021, 04/05/2021 Influenza Vaccine (#1) 2024 , 05/24/2021, 04/21/2019, Additional history exists Chlamydia and Gonorrhea Screening 04/12/2025 04/12/2024, 07/06/2023 Alcohol/Substance Use Screening 05/04/2025 05/04/2024 Family Planning (PISQ) 05/04/2025 05/04/2024 Tobacco Screening 10/17/2025 10/17/2024 Lipid Panel 08/10/2028 08/11/2023 Zoster Vaccines (1 of 2) 06/09/2053 RSV Patients and Patients Aged 60 years or older (1 - 1-dose 75+ series) 06/09/2078 Hepatitis B Vaccines Completed 03/22/2004, 03/22/2004, 2003, Additional history exists HIB Vaccines Completed 10/15/2004, 10/04, 2003, Additional history exists Hepatitis A Vaccines Completed 12/20/2007, 12/20/2007, 12/15/2006, Additional history exists IPV Vaccines Completed 12/20/2007, 03/06, 2003, Additional history exists HPV Vaccines Completed 03/07/2016, 05/2015, 06/23/2014, Additional history exists Meningococcal Vaccine Completed 05/07/2021 , 06/23/2014, 06/23/2014 Pneumococcal Vaccine: Pediatrics (0 to 5 Years) and At-Risk Patients (6 to 49) Years Completed 07/06/2023, 10/15/2004, 10/15/2004, Additional history exists HIV Screening Completed 04/13/2024 Hepatitis C Screening Completed 04/13/2024 , 08/11/2023, 11/27/2018 RSV under 20 months Aged Out No longe r eligible based on patient's age to complete this topic Rotavirus Vaccines Aged Out No longer eligible based on patient's age to complete this topic Procedures Procedure Name Priority Date/Time Associated Diagnosis Comments XR ANKLE 3+ VIEWS RIGHT Routine 01/10/2025 2:59 PM EDT Acute right ankle pain XR FOOT 3+ VIEWS LEFT Routine 01/10/2025 2:57 PM EDT Pain of toe of left foot XR ANKLE 3+ VIEWS LEFT Routine 01/10/2025 2:53 PM EDT Acute left ankle pain HEPATITIS C AB W/REFL TO HCV RNA, QN, PCR Routine 04/13/2024 11:28 AM EST Encounter for assessment of STD exposure HIV 1/2 ANTIGEN/ANTIBODY, FOURTH GENERATION W/RFL Routine 04/13/2024 11:28 AM EST Encounter for assessment of STD exposure CHLAMYDIA/N. GONORRHOEAE RNA, TMA, UROGENITAL Routine 04/12/2024 4:22 PM EST Nausea LIPID PANEL, STANDARD Routine 08/11/2023 8:45 AM EDT Obesity (BMI 35.0-39.9 without comorbidity) from Last 3 Months or Most Recently Relevant to Health Maintenance Results * XR Ankle 3+ Views Right (01/10/2025 2:59 PM EDT) Anatomical Region Laterality Modality Lower Extremities, Ankle Right Radiogr aphic Imaging 01/10/2025 2:59 PM EDT Narrative 01/10/2025 4:03 [place] [address] XRay Report Signed Patient: Nadira Cadet MR#: [id number] : 2005 Acct:[id number] Age/Sex: 19 / F ADM Date: 01/10/25 Loc: HO.HHCX Attending Dr: Belen Wallace MD Ordering Physician: Belen Kohler MD Date of Service: 01/10/25 Procedure(s): XR ankle RT min 3V Accession Number(s): [id number] cc: Belen Kohler MD Reason for Exam: [...] OV> 01/10/25 1600 DD/ 58 TD/TT: 01/10/251458 Gas Load Dispatcher: Procedure Note Donotuseinterpreter, Image - 01/10/[address] [address] XRay Report Signed Patient: Nadira Cadet#: [id number] : 2005Acct:[id number] Age/Sex: 19 FADM Date: 01/10/25 Loc: HO.HHCX Attending Dr: Belen Wallace MD Ordering Physician: Belen Kohler MD Date of Service: 01/10/25 Procedure(s): XR ankle RT min 3V Accession Number(s): [id number] cc: Belen Kohler MD Reason for Exam: [...] OV> 01/10/25 1600 DD/ 58 TD/TT: 01/10/251458 Gas Load Dispatcher: us Belen Wallace MD IMG XR PROCEDURES Fin al Result * XR Foot 3+ Views Left (01/10/2025 2:57 PM EDT) Anatomical Region Laterality Modality Lower Extremities, Foot Left Radiogra phic Imaging 01/10/2025 2:57 PM EDT Narrative 01/10/2025 4:03 PM EDT [address] [address] XRay Report Signed Patient: Nadira Cadet MR#: [id number] : 2005 Acct:[id number] Age/Sex: 19 / F ADM Date: 01/10/25 Loc: NATTY Attending Dr: Belen Wallace MD Ordering Physician: Belen Kohler MD Date of Service: 01/10/25 Procedure(s): XR foot LT min 3V Accession Number(s): [id number] cc: Belen Kohler MD Reason for Exam: [...] Junior MD in OV> 01/10/25 1600 DD/ 1457 TD/TT: 01/10/25 1458 Gas Load Dispatcher: Procedure Note Donotuseinterpreter, Image - 01/10/[address] [address] XRay Report Signed Patient: Nadira CadetR#: [id number] : 2005Acct:[id number] Age/Sex: 19 / FADM Date: 01/10/25 Loc: NATTY Attending Dr: Belen Wallace MD Ordering Physician: Belen Kohler MD Date of Service: 01/10/25 Procedure(s): XR foot LT min 3V Accession Number(s): [id number] cc: Belen Kohler MD Reason for Exam: [...] Junior MD in OV> 01/10/25 1600 DD/ 1457 TD/TT: 01/10/25 1458 Gas Load Dispatcher: Belen Wallace MD IMG XR PROCEDURES Fin al Result * XR Ankle 3+ Views Left (01/10/2025 2:53 PM EDT) Anatomical Region Laterality Modality Lower Extremities, Ankle Left Radiogr aphic Imaging 01/10/2025 2:53 PM EDT Narrative 01/10/2025 4:02 [place] [address] XRay Report Signed Patient: Nadira Cadet MR#: [id number] : 2005 Acct:[id number] Age/Sex: 19 / F ADM Date: 01/10/25 Loc: HHCX Attending Dr: Belen Wallace MD Ordering Physician: Belen Kohler MD Date of Service: 01/10/25 Procedure(s): XR ankle LT min 3V Accession Number(s): [id number] cc: Belen Kohler MD Reason for Exam: [...] in OV> 01/10/25 1559 DD/ 1453 TD/TT: 01/10/251457 Gas Load Dispatcher: Procedure Note Donotuseinterpreter, Image - 01/10/[address] [address] XRay Report Signed Patient: Nadira Cadet#: [id number] : 2005Acct:[id number] Age/Sex: 19 / FADM Date: 01/10/25 Loc: HO.HHCX Attending Dr: Belen Wallace MD Ordering Physician: Belen Kohler MD Date of Service: 01/10/25 Procedure(s): XR ankle LT min 3V Accession Number(s): [id number] cc: Belen Kohler MD Reason for Exam: [...] in OV> 01/10/25 1559 DD/ 1453 TD/TT: 01/10/251457 Gas Load Dispatcher: us Belen Wallace MD IMG XR PROCEDURES Fin al Result * Hepatitis C Antibody with Reflex to HCV, RNA, Quantitative, Real-Time PCR (04/13/2024 11:28 AM EST) Pathologist [facility] Hepatitis C Antibody Nonreactive Nonreactive [facility] Comment:Antibodies to HCV no t detected; does not exclude early acuteHCV infection. Blood Venous blood specimen / Unknown 04/13/2024 11:28 AM EST 04/13/2024 1:05 PM EST Nael Velasquez MD LAB BLOOD ORDERABLES Final Resu lt Performing Organization Address [facility] Co de Phone Number [facility] [address] [place] [phone] * HIV-1/2 Antigen and Antibodies, Fourth Generation, with Reflexes (04/13/2024 11:28 AM EST) Pathologist [facility] HIV AB/AG Nonreactive Nonreactive [facility] Comment:HIV-1 p24 Ag and/or HIV-1/HIV-2 Ab not detected.A test result that is nonreactive does not exclude thepossibility of exposure to or infection with HIV-1 and/orHIV-2. Nonreactive results in this assay for individualswith prior exposure to HIV-1 and/or HIV-2 may be due toantigen and antibody levels that are below the limit ofdetection of this assay.The [employer] HIV Ag/Ab Combo assay result andsupplemental assay results should be interpreted inconjunction with the patient's clinical presentation,history and other laboratory results. If the results areinconsistent with clinical evidence, additional testing issuggested to confirm the result. Blood Venous blood specimen / Unknown 04/13/2024 11:28 AM EST 04/13/2024 1:05 PM EST Nael Velasquez MD LAB BLOOD ORDERABLES Final Resu lt Performing Organization Address [facility]/ZIP Co de Phone Number [facility] [address] [place] [phone] * Chlamydia/N. Gonorrhoeae RNA, TMA, Urogenitial (04/12/2024 4:22 PM EST) CT PCR NOT DETECTED Not Detect. [facility] Comment:A not detected test result does not exclude the possibilityof infection because test results can be affected byimproper specimen collection, concurrent antibiotic therapy,or the number of organisms in the specimen which may bebelow the sensitivity of the test. As with many diagnostictests, results from the Xpert CT/NG assay should beinterpreted in conjunction with other laboratory andclinical data available to the clinician.Xpert CT/NG performance has not been evaluated in patientsless than 14 years of age. The assay should not be used forthe evaluationof suspected sexual abuse or for other medico-legalindications. Additional testing is recommended in anycircumstance when false positive or false negative resultscould lead to adverse medical, social or psychologicalconsequences. NG PCR NOT DETECTED Not Detect. [facility] Comment:A not detected test result does not exclude the possibilityof infection because test results can be affected byimproper specimen collection, concurrent antibiotic therapy,or the number of organisms in the specimen which may bebelow the sensitivity of the test. As with many diagnostictests, results from the Xpert CT/NG assay should beinterpreted in conjunction with other laboratory andclinical data available to the clinician.Xpert CT/NG performance has not been evaluated in patientsless than 14 years of age. The assay should not be used forthe evaluationof suspected sexual abuse or for other medico-legalindications. Additional testing is recommended in anycircumstance when false positive or false negative resultscould lead to adverse medical, social or psychologicalconsequences. Swab (Vaginal Swab) 04/12/2024 4:22 PM EST 04/13/2024 11:26 AM EST Narrative [facility] - 04/14/2024 4:48 AM EST Vaginal Nael Velasquez MD LAB MICROBIOLOGY - GENERAL DIANA MATTHEW Final Result [facility] [address] [place] [phone] [phone] * (ABNORMAL) Lipid Panel, Standard (08/11/2023 8:45 AM EDT) Triglycerides 50 <150 mg/dL [facility] Comment:Desirable Triglyceri de: less than 150 mg/dLBorderline High Triglyceride 150-199 mg/dLHigh Triglyceride: 200-499 mg/dLVery High Triglyceride: greater than or equal to 5OO mg/dL Cholesterol 135 <200 mg/dL [facility] Comment:Desirable Cholestero l: less than 200 mg/dLBorderline High Cholesterol: 200-239 mg/dLHigh Cholesterol: greater than 239 mg/dL LDL Cholesterol Calculated 87 <100 mg/dL [facility] Comment:Desirable LDL: less than 100 mg/dLNear Optimal/Above Optimal LDL: 110- 129 mg/dLBorderline High LDL: 130-159 mg/dLHigh LDL: 160-189 mg/dLVery High LDL: greater than or equal to 190 mg/dL HDL Cholesterol 38(L) >40 mg/dL [facility] Comment:Desirable HDL: great er than 40 mg/dL Note: This HDL assay may give artificially low results in patients with liver disease. Blood Venous blood specimen / Unknown 08/11/2023 8:45 AM EDT 08/11/2023 8:45 AM EDT Minerva Bailey MD LAB BLOOD ORDERABLES Final Result [facility] [address] [place] [phone] from Last 3 Months or Most Recently Relevant to Health Maintenance [facility] Advance Directives Documents on File Type Date Recorded Patient Cloth Spreader Expl anation Advance Directives and Living Will 08/10/2023 Health Care Proxy 08/10/23 Care Teams Validation Leader Relationship Specialty Start Date End Date Leo, MD Minerva [address] [place] [address] [place] [address] PCP - General Family Medicine 07/06/23
--- OUTSIDE RECORDS SUMMARY | 2025-01-10 17:45 | XMS_ITS | Encounter Summary ---
Author Organization [employer] Address [address] [facility] [facility] [address] [place] [address] Care Team Providers Care Divinity Professor Name Role Phone Minerva Bailey MD Primary Care Provider [phone] Encounter Details Date Type Department Care Team (Latest Contact Info) Description 01/10/2025 Travel Social History Tobacco Use Types Packs/Day Years [...] PM EDT documented as of this encounter Plan of Treatment Upcoming Encounters Date Type Department Care Team (Late st Contact Info) Description 02/09/2025 9:30 AM EST Office Visit [facility] [address] [place] [address] Minerva Bailey MD [address] [place] [phone] documented as of this encounter Visit Diagnoses Not on filedocumented in this encounter Additional Health Concerns Assessment Noted Time PHQ-9 Depression Total Score: 18 025 11:05 AM EST documented as of this encounter Care Teams Divinity Professor Relationship Specialty Start Date End Date Minerva Bailey MD [address] [place] [phone] PCP - General Family Medicine 07/06/23 documented as of this encounter
== END 2025-01-10 14:23 | disposition home or self-care (01) ==
LOC: HO.HHCX 14:22
PROVIDERS: Visit Provider Internal Medicine
DX: M25.572 Pain in left ankle and joints of left foot (principal); M79.675 Pain in left toe(s); M25.571 Pain in right ankle and joints of right foot
CPT/HCPCS: 73610; 73630

== ENCOUNTER → 2025-01-10 14:22 | Outpatient (BNV) | payer MEDICAID, SELFPAY | PROVIDERS: Visit Provider Radiology Diagnostic Radiology | DX: M25.572 Pain in left ankle and joints of left foot (principal); M25.571 Pain in right ankle and joints of right foot; M79.672 Pain in left foot | CPT/HCPCS: 73610; 73630 ==

== ENCOUNTER 2025-02-13 14:30 | Outpatient (REF) | payer MEDICAID, SELFPAY ==
--- OUTSIDE RECORDS SUMMARY | 2025-02-09 09:30 | XMS_ITS | Encounter Summary ---
Author Organization [employer] Address [address] [facility] [address] [place] [address] Care Team Providers Care Chocolate Finisher Operator Name Role Phone Minerva Bailey MD Primary Care Provider [phone]- [phone] Emelia Alex RN Unavailable [phone] Shelia Mendes Unavailable Reason for Referral * Consultation (Routine) - Closed Specialty Diagnoses / Procedures Referred By Contac t Referred To Contact Behavioral Health Diagnoses Severe episode of recurrent major depressive disorder, without psychotic features (CMS/HCC) (HCC) Procedures Referral to Behavioral Health Minerva Bailey MD [address] [place] [phone] Phone: tel: fax: Referral ID Status Reason Start Date Expiration Date V isits Requested Visits Authorized [id number] Closed Specialty Services Required 02/09/2025 02/09/2026 1 1 Reason for Visit * Reason Comments Follow-up Encounter Details Date Type Department Care Team (Late st Contact Info) Description 02/09/2025 9:30 AM EST Office Visit [facility] [address] [place] [address] [phone] Minerva Bailey MD [address] [place] [address] [phone] Severe episode of recurrent major depressive disorder, without psychotic features (CMS/HCC) (HCC) (Primary Dx); Seborrheic dermatitis; Psoriasiform dermatitis; Family planning; Encounter for immunization; Other specified health status Social History Tobacco Use Types Packs/Day Years Used Date Smoking Tobacco: Never Passive Smoke Exposure: Never Smokeless Tobacco: Never Alcohol Use Standard Drinks/Week Comments Never 0 (1 standard drink = 0.6 oz pur e alcohol) Depression Answer Date Recorded Patient Health Questionnaire-9 Score 0 02/07/2025 Patient Health Questionnaire-9 Score 0 02/07/2025 Last PHQ-9: Questionnaire Data Not on file 1 04/09/2024 Housing Stability Answer Date Recorded What is your housing situation today? I do not have housing (Staying with others, in a hotel, in a correction, living outside on the street, on a beach, in a car, or in a park 01/25/[address] you li ve. Do you have problems with any of the following? None of the above 01/25/2025 Food Insecurity Answer Date Recorded Within the past 12 months, y ou worried that your food would run out before you got money to buy more: Sometimes True 2024 Within the past 12 months,th e food you bought just didn't last and you didn't have enough money to get more: Sometimes True 01/25/2025 Transportation Answer Date Recorded In the past 12 months, has l ack of transportation kept you from medical appts, meetings, work or from getting things needed for daily living? No 01/25/2025 Utilities Answer Date Recorded In the past 12 months, has t he electric, gas, oil or water company threatened to shut off services in your home? No 01/25/2025 Depression Answer Date Recorded Patient Health Questionnaire-2 Score 0 02/07/2025 Internet Access Answer Date Recorded Internet Access Q1 Yes 01/25/2025 Internet Access Q2 Not on file 01/25/2025 Comments No Sex and Gender Information Value Date Recorded Sex Assigned at Female 10/22/2023 6:28 PM EDT Legal Sex Female 6:04 PM EDT Gender Identity Female 10/22/2023 6:28 PM EDT Sexual Orientation Straight 10/22/2023 6: 28 PM EDT documented as of this encounter Last Filed Vital Signs Vital Sign Reading Time Taken Comments Blood Pressure 118/72 02/09/2025 9:34 AM EST Pulse 96 02/09/2025 9:34 AM EST Temperature 36.9 C (98.5 F) 02/09/2025 9:34 AM EST Respiratory Rate 20 02/09/2025 9:34 AM EST Oxygen Saturation - - Inhaled Oxygen Concentration - - Weight 119 kg (262 lb 3.2 oz) 02/09/2025 9:34 AM EST Height - - Body Mass Index 37.62 05/04/2024 9:29 AM EST documented in this encounter Progress Notes * Minerva Bailey MD - 02/09/2025 9:30 AM EST Subjective Patient ID: Kadi Cadet is a 19 y.o. female with past medical history of chronic low back pain, moderate anxiety, asthma, chronic pain of both knees, depression/PTSD, eczema, and seborrheic dermatitis who presents for physical exam. Interim history: ?? Last PCP visit 05/04/24 for depression. Current concerns: Depression - History of depression, described as on and off - Missed a therapy appointment previously due to mental health, resulting in discontinuation of therapy - Referral to behavioral health in April did not result in ongoing therapy Seborrheic Dermatitis (Facial Rash) - Recurrent facial rash, described as itchy, dry, and severe at times - Rash causes pain and worsens periodically - Hydrocortisone cream used for symptom relief, reported as the only effective treatment for face - Hole Digger Truck Driver previously prescribed stronger medication for spots, currently no spots present - Uses CeraVe cream after hydrocortisone application - Rash localized to face, no current involvement of arms Asthma - History of asthma, currently described as OK Control Discontinuation - control removed 2 days prior to encounter - Advised that may occur within a year after discontinuation - Using period tracking shaw for fertility awareness Pap Smear and STI Testing - Pap smear and swab performed across the tam the day before the encounter - Awaiting results Tobacco Use - Quit tobacco and vaping recently in preparation for Alcohol and Drug Use - Denies alcohol and recreational drug use [facility] - Looking for employment and housing in preparation for Hospitalized from 03/15-03/18 for depression, PTSD, and homelessness. Staying with grandma now. Agrees to see behavior health today. She continues to report total body pain since child luna. High likely fibromyalgia. Review of Systems Constitutional: Negative for fatigue, fever and unexpected weight change. Respiratory: Negative for cough. Cardiovascular: Negative for chest pain. Gastrointestinal: Negative for abdominal pain. Genitourinary: Negative for difficulty urinating. Psychiatric/Behavioral: Negative for behavioral problems and confusion. The patient is not nervous/anxious. Objective Visit Vitals BP 118/72 Pulse 96 Temp 98.5 ??F (36.9 ??C) (Oral) Resp 20 Body mass index is 37.62 kg/m??. Physical Exam Constitutional: Appearance: Normal appearance. HENT: Right Ear: Tympanic membrane normal. Left Ear: Tympanic membrane normal. Mouth/Throat: Pharynx: Oropharynx is clear. No oropharyngeal exudate. Eyes: Conjunctiva/sclera: Conjunctivae normal. Cardiovascular: Rate and Rhythm: Normal rate and regular rhythm. Heart sounds: Normal heart sounds. Pulmonary: Effort: Pulmonary effort is normal. Breath sounds: Normal breath sounds. Abdominal: Tenderness: There is no abdominal tenderness. Musculoskeletal: Cervical back: Normal range of motion and neck supple. No rigidity or tenderness. Skin: Comments: Symmetric, poorly defined erythematous patches and plaques with yellow, greasy scale and fine, superficial desquamations on forhead. Lesions are most prominent in sebaceous gland rich areasof scalp, central face, nasolabial folds, eyebrows and glabella. Postinflammatory pigmentary changes noted with less apparent erythema. No pustulation or significant excoriation. Neurological: General: No focal deficit present. Mental Status: She is alert. Psychiatric: Behavior: Behavior normal. No visits with results within 1 Month(s) from this visit. Latest known visit with results is: Office Visit on 04/12/2024 Component Date Value TRICHOMONAS VAGINALIS DE* 04/12/2024 NOT DETECTED BACTERIAL VAGINOSIS DETE* 04/12/2024 POSITIVE (A) MAUREEN GROUP DETECTION * 04/12/2024 DETECTED (A) Maureen glab krusei PCR 04/12/2024 NOT DETECTED Color, UA 04/12/2024 Yellow Clarity, UA 04/12/2024 Cloudy Glucose, UA 04/12/2024 Negative Bilirubin, UA 04/12/2024 Negative Ketones, UA 04/12/2024 Positive Spec Grav, UA 04/12/2024 1.025 Blood, UA 04/12/2024 Negative pH, UA 04/12/2024 7.0 Protein, UA 04/12/2024 Trace Urobilinogen, UA 04/12/2024 2.0 Leukocytes, UA 04/12/2024 Negative Nitrite, UA 04/12/2024 Negative Appearance, UA 04/12/2024 cloudy QC Media Lot # 04/12/2024 [id number] Lot# Expiration Date 04/12/2024 [id number] Preg Test, Ur 04/12/2024 Negative QC Media Lot # 04/12/2024 [id number] Lot# Expiration Date 04/12/2024 [id number] CT PCR 04/12/2024 NOT DETECTED NG PCR 04/12/2024 NOT DETECTED HCG Quantitative 04/13/2024 <2 White Blood Count 04/13/2024 6.1 Red Blood Count 04/13/2024 4.23 Hemoglobin 04/13/2024 13.2 Hematocrit 04/13/2024 38.8 Mean Corpuscular Volume 04/13/2024 91.7 Mean Corpuscular Hemoglo* 04/13/2024 31.2 Mean Corpuscular HGB Conc 04/13/2024 34.0 Red Cell Distribution Wi* 04/13/2024 12.0 Platelet Count 04/13/2024 258 Mean Platelet Volume 04/13/2024 9.8 Neutrophils Percent Auto 04/13/2024 72.4 Imm Gran Pct Auto 04/13/2024 0.3 Lymphocytes Percent Auto 04/13/2024 16.9 (L) Monocytes Percent Auto 04/13/2024 7.9 Eosinophils Percent Auto 04/13/2024 2.0 Basophils Percent Auto 04/13/2024 0.5 NRBC Pct Auto 04/13/2024 0.0 Neutrophils Absolute Auto 04/13/2024 4.4 Imm Gran Abs Auto 04/13/2024 0.02 Lymphocytes Absolute Au* 04/13/2024 1.0 (L) Monocytes Absolute Auto 04/13/2024 0.5 Eosinophils Absolute Auto 04/13/2024 0.1 Basophils Absolute Auto 04/13/2024 0.0 NRBC Abs Auto 04/13/2024 0.000 Hepatitis C Antibody 04/13/2024 Nonreactive Hepatitis B Surface Ag 04/13/2024 Negative HIV AB/AG 04/13/2024 Nonreactive Syphilis Screen 04/13/2024 Nonreactive Sodium 04/13/2024 142 Potassium 04/13/2024 4.2 Chloride 04/13/2024 111 (H) Carbon Dioxide 04/13/2024 22 Anion Gap 04/13/2024 13 Urea Nitrogen (BUN) 04/13/2024 10 Creatinine, Serum 04/13/2024 0.67 Estimated Glomerular Kenan* 04/13/2024 >60 Glucose 04/13/2024 93 Calcium 04/13/2024 9.0 Bilirubin, Total 04/13/2024 0.5 Aspartate Amino Transfer* 04/13/2024 18 Alanine Aminotransferase 04/13/2024 19 Total Protein 04/13/2024 7.2 Albumin Level 04/13/2024 4.2 Alkaline Phosphatase 04/13/2024 39 Lipase 04/13/2024 12 Assessment & Plan Severe episode of recurrent major depressive disorder, without psychotic features (CMS/HCC) (HCC) Suspect concurrent diagnosis such as ASD or cognitive delay. No testing on file. Denies suicidial or homacidial ideation. On waiting list for therapist and psychiatrist. Seen by [facility] again08/10/23. -will see if testing done by school system and request records -multiple suicide attempts most recent 03/2024 -seen by [facility] 05/04/24 to establish care -referred again 02/09/25 Orders: Referral to Behavioral Health; Future Seborrheic dermatitis Exam consistent with seborrheic dermatitis. -advised this is a chronic, relapsing inflammatory skin disorder affecting sebaceous gland-rich areas. Less likely but also on differential includes psoriasis, atopic dermatitis, and bj capitis butclinical features and distribution support seborrheic dermatitis. -advise topical antifungal shampoo ketoconazole 2% -in no improvement with antifungals, consider short tem topical corticosteroids -advise gentle skin care, regular shampooing and avoidance of triggers Orders: ketoconazole (Nizoral) 2 % shampoo; Apply topically 2 (two) times a week. hydrocortisone 0.5 % cream; Apply topically 2 times daily. Psoriasiform dermatitis Chronic, relapsing pruritic eczematous lesions consistent with atopic dermatitis. No evidence of secondary infection. -advised liberal, daily application of emollients to affected areas, especially after bathing -advise fragrance-free, dye-free moisturizers -use topical corticosteroid on active lesion bid for 2-3 days after symptoms resolve but no longer than 10 days -if refractory, may need dermatology referral -return if symptoms worsen or do not improve Orders: Fluocinolone Acetonide Scalp (Isabella-Smoothe/FS Scalp) 0.01 % oil; Apply on damp hair 3 times weeklyat night, cover with head scarf Family planning Orders: Vit-Fe Fumarate-FA ( Plus) 27-1 MG tablet; One tablet by mouth daily Encounter for immunization Orders: FLU VACCINE TRIVALENT [id number] (Fluarix) 19 yrs + TDAP VACCINE 7 yrs + Other specified health status -next physical exam due after 02/09/26 -eye care facilitated by [facility] -dental home is [facility] proxy filed on 08/10/2023 Follow up in about 1 year (around 02/09/2026) for physical.This note was drafted using Ambient (AI) technology. The patient/patient's guardian has been informed and has consented to the use of this technology: Yes documented in this encounter Miscellaneous Notes * Assessment & Plan Note - Minerva Bailey MD - 02/09/2025 9:30 AM EST Associated Problem(s): Severe episode of recurrent major depressive disorder, without psychotic features (CMS/HCC) (HCC) Suspect concurrent diagnosis such as ASD or cognitive delay. No testing on file. Denies suicidial or homacidial ideation. On waiting list for therapist and psychiatrist. Seen by [facility] again08/10/23. -will see if testing done by school system and request records -multiple suicide attempts most recent 03/2024 -seen by [facility] 05/04/24 to establish care -referred again 02/09/25 Orders: Referral to Behavioral Health; Future * Assessment & Plan Note - Minerva Bailey MD - 02/09/2025 9:30 AM EST Associated Problem(s): Other specified health status -next physical exam due after 02/09/26 -eye care facilitated by [facility] -dental home is [facility] proxy filed on 08/10/2023 * Assessment & Plan Note - Minerva Bailey MD - 02/09/2025 9:30 AM EST Associated Problem(s): Seborrheic dermatitis Exam consistent with seborrheic dermatitis. -advised this is a chronic, relapsing inflammatory skin disorder affecting sebaceous gland-rich areas. Less likely but also on differential includes psoriasis, atopic dermatitis, and bj capitis butclinical features and distribution support seborrheic dermatitis. -advise topical antifungal shampoo ketoconazole 2% -in no improvement with antifungals, consider short tem topical corticosteroids -advise gentle skin care, regular shampooing and avoidance of triggers Orders: ketoconazole (Nizoral) 2 % shampoo; Apply topically 2 (two) times a week. hydrocortisone 0.5 % cream; Apply topically 2 times daily. documented in this encounter Plan of Treatment Not on file documented as of this encounter Visit Diagnoses Diagnosis Severe episode of recurrent major depressive disorder, without psychotic features (CMS/HCC) ([facility])- Primary Seborrheic dermatitis Unspecified seborrheic dermatitis Psoriasiform dermatitis Other psoriasis and similar disorders Family planning Other general counseling and advice for contraceptive management Encounter for immunization Other specified health status documented in this encounter Additional Health Concerns Assessment Noted Time PHQ-9 Depression Total Score: 0 02/08/20 25 3:34 PM EST documented as of this encounter Care Teams Chocolate Finisher Operator Relationship Specialty Start Date End Date Minerva Bailey MD [address] [place] [address] PCP - General Family Medicine 07/06/23 Emelia Alex RN [address] [place] [address] Registered Nurse Family Medicine 01/25/25 Shelia Mendes 01/25/25 documented as of this encounter
--- OUTSIDE RECORDS SUMMARY | 2025-02-13 16:51 | XMS_ITS | Clinical Summary ---
Author Organization [employer] Address [address] [facility] [address] [place] [address] Care Team Providers Care Domestic Technician Name Role Phone LeoMinerva rene MD Primary Care Provider [phone] Emelia Alex RN Unavailable [phone] Shelia Mendes Unavailable Allergies Active Allergy Reactions Criticality Noted Date Comments Chocolate Cough,Dizziness,Hive s,Itching,Rash,Halley rtness of breath,Swelling,Unknown,Wheezing High 07/06/2023 Medications * This document contains information received from the source organization and may not represent a complete record from that organization. triamcinolone (Kenalog) 0.1 % creamIndications: Flexural atopic dermatitis Apply topically if needed in the morning and at bedtime (pain and swelling). 30 g 2 024 Active betamethasone, augmented, (Diprolene) 0.05 % ointmentIndicatio ns:Psoriasiform dermatitis Apply topically 2 times daily. 45 g 2 024 Active Ventolin HFA 108 (90 Base) MCG/ACT inhalerIndication s:Mild intermittent asthma without complication INHALE 2 PUFFS BY MOUTH EVERY 6 HOURS 18 g 2 025 Active ketoconazole (Nizoral) 2 % shampooIndication s:Seborrheic dermatitis Apply topically 2 (two) times a week. 120 mL 1 025 Active Fluocinolone Acetonide Scalp (Morrill-Smoothe/FS Scalp) 0.01 % oilIndications:Ps oriasiform dermatitis Apply on damp hair 3 times weekly at night, cover with head scarf 118.28 mL 2 025 Active Vit-Fe Fumarate-FA ( Plus) 27-1 MG tabletIndications :Family planning One tablet by mouth daily 30 tablet 11 Active hydrocortisone 0.5 % creamIndications: Seborrheic dermatitis Apply topically 2 times daily. 15 g 2 Active sertraline (Zoloft) 50 MG tabletIndications :Moderate episode of recurrent major depressive disorder (CMS/HCC) (HCC) Take 1 tablet (50 mg) by mouth Once per day. 90 tablet 3 024 2024 Discontinued cyclobenzaprine (Flexeril) 10 MG tabletIndications :Chronic bilateral low back pain without sciatica One tab po at bedtime prn pain of muscles, do not drive with medicaion 30 tablet 024 2024 Discontinued(M ed list cleanup (will not trigger notification to Pharmacy)) sennosides (Senokot) 8.6 MG tabletIndications :Constipation, unspecified constipation type 1-2 tabs po nightly prn constipation 60 tablet 11 024 2024 Discontinued(M ed list cleanup (will not trigger notification to Pharmacy)) SUMAtriptan (Imitrex) 25 MG tabletIndications :Other migraine without status migrainosus, not intractable Take 1 tablet (25 mg) by mouth 1 (one) time if needed for migraine for up to 1 dose. May repeat dose once in 2 hours if no relief. Do not exceed 2 doses in 24 hours. 9 tablet 024 2024 Discontinued selenium sulfide (Selsun) 2.5 % shampooIndication s:Dandruff Use three times a week in shower. Lather on scalp, leave 5 min then rinse 118 mL 2 024 2024 Discontinued ketoconazole (Nizoral) 2 % shampooIndication s:Seborrheic dermatitis Apply topically 2 (two) times a week. 120 mL 1 024 2024 Discontinued(R eorder (will not trigger notification to Pharmacy)) Fluocinolone Acetonide Scalp (Morrill-Smoothe/FS Scalp) 0.01 % oilIndications:Ps oriasiform dermatitis Apply on damp hair 3 times weekly at night, cover with head scarf 118.28 mL 2 09/17/ 024 2024 Discontinued(R eorder (will not trigger notification to Pharmacy)) ibuprofen 600 MG tabletIndications :Acute pain of left wrist Take 1 tablet (600 mg) by mouth every 6 (six) hours if needed for mild pain. 30 tablet 1 024 2024 Discontinued(M ed list cleanup (will not trigger notification to Pharmacy)) ondansetron ODT (Zofran-ODT) 8 MG disintegrating tabletIndications :Nausea 1 tab under tongue q 8 hours prn nausea or vomiting. 10 tablet 025 2024 Discontinued clindamycin (Clindagel) 1 % gelIndications:Hi dradenitis suppurativa Apply topically Once per day. 60 g 2 025 2024 Discontinued(M ed list cleanup (will not trigger notification to Pharmacy)) acetaminophen (Tylenol Extra Strength) 500 MG tabletIndications :Acute left ankle pain,Acute right ankle pain,Pain of toe of left foot Take 2 tablets (1,000 mg) by mouth every 8 (eight) hours if needed for moderate pain for up to 10 days. 30 tablet 025 2024 omeprazole (PriLOSEC) [address] capsuleIndication s:Epigastric abdominal pain TAKE 1 CAPSULE BY MOUTH DAILY FOR 3 MONTHS 30 capsule 2 025 2024 Discontinued(M ed list cleanup (will not trigger notification to Pharmacy)) doxycycline (Vibra-Tabs) 100 MG tabletIndications :Hidradenitis suppurativa Take 1 tablet (100 mg) by mouth 2 times daily. Take with a full glass of water and do not lie down for at least 30 minutes after. 120 tablet 025 2024 Discontinued(O ther) Vit-Fe Fumarate-FA ( Plus) 27-1 MG tablet One tablet by mouth daily 30 tablet 11 025 2024 Discontinued(R eorder (will not trigger notification to Pharmacy)) Active Problems Problem Noted Date Diagnosed Date Hidradenitis suppurativa 05/04/2024 Overview (02/09/2025): -trial of clindamycin gel 05/04/24 Assessment & Plan (05/04/2024 11:37 AM EST): -trial of clindamycin gel05/04/24 Eczema 09/04/2023 Seborrheic dermatitis 09/04/2023 Assessment & Plan (02/09/2025 11:33 AM EST): Exam consistent with seborrheic dermatitis. -advised this is a chronic, relapsing inflammatory skin disorder affecting sebaceous gland-rich areas. Less likely but also on differential includes psoriasis, atopic dermatitis, and bj capitis but clinical features and distribution support seborrheic dermatitis. -advise topical antifungal shampoo ketoconazole 2% -in no improvement with antifungals, consider short tem topical corticosteroids -advise gentle skin care, regular shampooing and avoidance of triggers Orders: ketoconazole (Nizoral) 2 % shampoo; Apply topically 2 (two) times a week. hydrocortisone 0.5 % cream; Apply topically 2 times daily. Other specified health status 07/06/2023 Overview (02/09/2025): -next physical exam due after 02/09/26 -eye care facilitated by [facility] -dental home is [facility] proxy filed on 08/10/2023 Assessment & Plan (02/09/2025 11:33 AM EST): -next physical exam due after 02/09/26 [facility] proxy filed on 08/10/2023 Assessment & Plan (05/04/2024 11:37 AM EST): -next physical exam due after 07/07/2024 -[facility] proxy filed on 08/10/2023 Assessment & Plan (08/10/2023 10:20 AM EDT): -next physical exam due after 07/07/2024 -eye care facilitated by [facility] -dental home is [facility] -[facility] proxy filed on 08/10/2023 Severe episode of recurrent major depressive disorder, without psychotic features ([facility]/HCC) 06/12/2023 Overview (02/09/2025): Suspect concurrent diagnosis such as ASD or cognitive delay. No testing on file. Denies suicidial or homacidial ideation. On waiting list for therapist and psychiatrist. Seen by [facility] again 08/10/23. -will see if testing done by school system and request records -multiple suicide attempts most recent 03/2024 -seen by [facility] 05/04/24 to establish care -referred again 02/09/25 Assessment & Plan (02/09/2025 11:33 AM EST): Suspect concurrent diagnosis such as ASD or cognitive delay. No testing on file. Denies suicidial or homacidial ideation. On waiting list for therapist and psychiatrist. Seen by [facility] again 08/10/23. -will see if testing done by [employer] system and request records -multiple suicide attempts most recent 03/2024 -seen by [facility] 05/04/24 to establish care -referred again 02/09/25 Orders: Referral to Behavioral Health; Future Assessment & Plan (05/04/2024 11:36 AM EST): Suspect concurrent diagnosis such as ASD or cognitive delay. No testing on file. Denies suicidial or homacidial ideation. On waiting list for therapist and psychiatrist. Seen by [facility] again 08/10/23. -will see if testing done by [employer] system and request records -multiple suicide attempts most recent 03/2024 -seen by [facility] 05/04/24 to establish care Assessment & Plan (08/10/2023 12:08 PM EDT): Suspect concurrent diagnosis such as ASD or cognitive delay. NO testing on file. Denies suicidial or homacidial ideation. On waiting list for therapist and psychiatrist. Seen by [facility] again 08/10/23. -will see if testing [...] intervention , Patient to reach out to [facility] team as needed, and Patient to reach out to [facility] as needed PTSD (post-traumatic stress disorder) 06/12/2023 History of suicidal behavior 06/12/2023 Vitamin D deficiency 05/29/2016 Visual impairment 03/07/2016 Resolved Problems Problem Noted Date Diagnosed Date Resolved Date Acute right ankle pain 01/10/202502/09 Pain of toe of left foot 01/10/202509/2024 Chronic pain of both knees 05/19/2023 1 04/11/2024 Assessment & Plan (05/19/2023 11:16 AM EST): No swelling, no erythema, will refer to PT Left ankle pain 01/17/2023 02/09/2025 Assessment & Plan (01/17/2023 8:52 AM EDT): [...] the one done here at the last [facility] evaluation cannot be processed since we are not her PCP. -Gave letter today for 1 wk of rest from work so that she can reach her PCP for further management and recommendations. Moderate anxiety 01/17/2023 05/04/2024 Assessment & Plan [...] PCP. Deprivation of food 12/01/2016 04/12/19 25 Chronic low back pain 03/07/20162024 Assessment & Plan (05/19/2023 11:15 AM EST): Continue home remedies, RICE, will refer for physical therapy Flexural atopic dermatitis 03/07/2016 0 04/12/2024 Childhood obesity 03/07/2016 08/10/2023 Encounters * This document contains information received from the source organization and may not represent a complete record from that organization. Date Type Department Care Team Description 02/13/2025 Results Follow-Up [facility] [address] [place] [id number] Amy Andrade CNM Pap Smear 02/09/2025 9:30 AM EST Office Visit [facility] [address] [place] [address] Minerva Bailey MD Severe episode of recurrent major depressive disorder, without psychotic features (CMS/HCC) (HCC) (Primary Dx); Seborrheic dermatitis; Psoriasiform dermatitis; Family planning; Encounter for immunization; Other specified health status 02/09/2025 Travel 02/08/2025 Patient Outreach [address] [phone] Minerva Bailey MD Care Coordination ([facility]3 [facility] Shelia Mendes telephone call outreach) 02/08/2025 Patient Outreach [address] [address] Minerva Bailey MD 02/08/2025 Telephone [facility] [address] [place] [phone] [place], [place], [place] 02/07/2025 2:45 PM EST Procedure Visit [address] [address] Amy Andrade CNM Encounter for IUD removal (Primary Dx); Cervical cancer screening 02/07/2025 Travel 02/06/2025 Telephone [facility] [address] [place] [phone] Deonte [place], [place] 02/06/2025 Travel 02/03/2025 Patient Outreach [address] [address] Minerva Bailey MD Care Coordination ([facility] Shelia Mendes telephone call outreach) 01/31/2025 Travel 01/30/2025 Patient Outreach [address] [address] Minerva Bailey MD Care Management ([facility] COMPLEX INITIAL ASSESSMENT/ENROLLMENT /) 01/25/2025 Patient Outreach [address] [address] Minerva Bailey MD Care Coordination ([facility] Shelia Mendes telephone call outreach) 01/25/2025 Patient Outreach [address] [address] Minerva Bailey MD Care Coordination ([facility] Shelia Mendes telephone call outreach) 01/25/2025 Patient Outreach [address] [address] Minerva Bailey MD Care Coordination (C3 -[facility] Shelia Mendes chart review/) 01/25/2025 Patient Outreach [facility] [address] [place] [phone] Minerva Bailey MD Care Management (C3 -CHART REVIEW/) 01/25/2025 Patient Outreach [facility] [address] [place] [phone] Minerva Bailey MD 01/10/2025 2:00 PM EDT Office Visit [facility] [address] [place] [phone] Belen Kohler MD Mild intermittent asthma without complication; Acute left ankle pain; Acute right ankle pain; Pain of toe of left foot; Epigastric abdominal pain; Hidradenitis suppurativa 01/10/2025 Results Follow-Up [facility] [address] [place] [phone] Belen Kohler MD XR Ankle 3+ Views Left 01/10/2025 Travel from Last 3 Months Immunizations Immunization Administration Dates Next Due DTaP 10/20/2005 DTaP, 5 pertussis antigens 12/20/2007,,2003,08/13 HPV 9-Valent 03/07/2016,06/23/2014 HPV, Quadrivalent 03/07/2016,06/23/2014 Hep A, ped/adol, 2 dose 12/20/2007,12/15/2006 Hep B, Adolescent or Pediatric 4,2003,2003,06/09 HiB, unspecified 2003 Hib (HbOC) 10/15/2004, 4,2003,08/13 IPV 12/20/2007, 4,2003,08/13 Influenza injectable quadriv alent preservative free 03/11/2018,01/26/2017,03/07/2016 Influenza, seasonal, injecta ble, preservative free 02/09/2025 MMR 12/20/2007,06/20/2004 Meningococcal ACWY, unspecified 05/07/2021,06/23 Meningococcal MCV4P ACYW-135 06/23/2014 Pfizer Covid-19 Vaccine 12+ 07/06/2023 Pneumococcal Conjugate PCV 13 10/15/2004 ,2003,2003,08/13 Pneumococcal Conjugate PCV 20 07/06/2023 Pneumococcal Conjugate PCV 7 10/15/2004, 2003,2003,10/12,2003 Tdap 02/09/2025,06/23/2014 Varicella 12/20/2007,06/20/2004 Family History Medical History Relation Name Comments Breast cancer Maternal Grandmother Diabetes Mother's Brother Lane Relation Name Status Comments Maternal Grandmother Mother's Brother Lane Social History Tobacco Use Types Packs/Day Years [...] with others, in a hotel, in a intermediate, living outside on the street, on a [...] Q2 Not on file 01/25/2025 Comments No Intention Date Recorded Wants to become (finding) 02/07 Sex and Gender Information Value Date Recorded [...] 20 02/09/2025 9:34 AM EST Oxygen Saturation 99% 02/07/2025 3:15 PM EST Inhaled Oxygen Concentration - - Weight 119 kg (262 lb 3.2 oz) 02/09/2025 9:34 AM EST Height 177.8 cm (5' 10 ) 05/04/2024 9:29 AM EST Body Mass Index 37.62 05/04/2024 9:29 AM EST Plan of Treatment Health Maintenance Due Date Last Done Comments Meningococcal B Vaccine (1 of 2 - Standard) 2019 Chlamydia and Gonorrhea Screening 04/12/2025 04/12/2024, 07/06/2023 Alcohol/Substance Use Screening 05/04/2025 05/04/2024 SDOH Screening 01/25/2026 01/25/2025 Disability Screening 02/06/2026 02/06/2025 Depression Screening 02/07/2026 02/07/2025, 02/08/20 Family Planning (PISQ) 02/07/2026 02/07/2025 COVID-19 Vaccine ( season) 2026 07/06/2023, 04/26/2021, 04/05/2021 Postponed from 12/05/2024 (Patient Refused) Tobacco Screening 02/09/2026 02/09/2025 Pap Smear 02/08/2028 02/07/2025 Lipid Panel 08/10/2028 08/11/2023 DTaP/Tdap/Td Vaccines (8 - Td or Tdap) 02/09/2035 02/09/2025, 06/23/2014, 12/20/2007, Additional history exists Zoster Vaccines (1 of 2) 06/09/2053 RSV Patients and Patients Aged 60 years or older (1 - 1-dose 75+ series) 06/09/2078 Hepatitis B Vaccines Completed 03/22/2004, 2003, 2003, Additional history exists HIB Vaccines Completed 10/15/2004, 12/05, 2003, Additional history exists Hepatitis A Vaccines Completed 12/20/2007, 12/16/19 07 IPV Vaccines Completed 12/20/2007, 03/06, 2003, Additional history exists HPV Vaccines Completed 03/07/2016, 05/2015, 06/23/2014, Additional history exists Meningococcal Vaccine Completed 05/07/2021 , 06/23/2014, 06/23/2014 Pneumococcal Vaccine: Pediatrics (0 to 5 Years) and At-Risk Patients (6 to 49) Years Completed 07/06/2023, 10/15/2004, 10/15/2004, Additional history exists HIV Screening Completed 04/13/2024 Hepatitis C Screening Completed 04/13/2024 , 08/11/2023, 11/27/2018 Influenza Vaccine Completed 02/09/2025, , 03/11/2018, Additional history exists RSV under 20 months Aged Out No longe r eligible based on patient's age to complete this topic Rotavirus Vaccines Aged Out No longer eligible based on patient's age to complete this topic Procedures Procedure Name Priority Date/Time Associated Diagnosis Comments OR REMOVAL INTRAUTERINE DEVICE IUD Routine 02/07/2025 2:45 PM EST Encounter for IUD removal PAP SMEAR Routine 02/07/2025 12:00 AM EST Cervical cancer screening XR ANKLE 3+ VIEWS RIGHT Routine 01/10/2025 [...] Recently Relevant to Health Maintenance Results * OR REMOVAL INTRAUTERINE DEVICE IUD (02/07/2025 2:45 PM EST) Amy Reddy CNM - 02/07/2025 2:45 PM EST Amy Andrade CNM 02/07/2025 3:37 PM IUD Management Performed by: Amy Andrade CNM Authorized by: Amy Andrade CNM Procedure: IUD removal Consent obtained by patient, parent, or legal power of insurance attorney - including discussion of procedure risks and benefits, patient questions answered, and patient education provided: yes Reason for removal: patient request Strings visualized: yes IUD grasped by forceps: yes IUD removed: yes Date/Time of Removal: 02/07/2025 3:15 PM Removed without complications: yes IUD intact: yes us Amy Andrade CNM IN CLINIC/BEDSIDE ORDERAB LES Final Result * Pap Smear (02/07/2025 12:00 AM EST) Swab Cervix uteri structure / Unknown 02/07/2025 02/08/2025 6:18 AM EST [facility] - 02/10/2025 11:32 AM EST ----- ------- Name: Nadira Cadet Age/Sex: 19/F : 2005 Unit#: [id number] Attend Dr: Re02/07/25 Status: PRE [facility] Location: [facility] Disch: ----- ------- SPEC : [id number] RECD: 02/08/25 STATUS: EDIS GIRALDO NUM: [id number] ZAYDA: 02/07/25-[address]: AMY ANDRADE CNM ENTERED: 02/08/25 SP TYPE: Pap [facility] DR: ORDERED: Pap Smear Interpretation Satisfactory for evaluation. Negative for intraepithelial lesion or malignancy. No endocervical cells seen. Clinical Information LMP:Unknown date Previous PAP test: Initial PAP Material Received ThinPrep-Cervical PAP Disclaimer As of January 27, 2024, the technical services to include automated prescreening performed by the ThinPrep Imaging System, PAP screening and HPV testing will be performed at (IA #[id number]), [address] [place] [address]. Testing for HPV was performed using the [employer] VIRGILIO 6800 system. The presence of HPV in the female genital tract is associated with a number of diseases, including cervical carcinoma. The HPV DNA high risk pool tests for HPV 31, 33, 35, 39, 45, 51, 52, 56, 58, 59, 66 and 68. The testing for HPV 16 and 18 genotypes has also been performed. A positive result indicates detection of nucleic acid sequences from one or more subtypes, whereas a negative result indicates such sequences were not detected. All professional services are performed by [facility] ([address] [place] [id number]; ; [place] #[id number]). The PAP Test is a screening procedure with the inherent possibility of both false negative and false positive results. Results should be interpreted in the context of historic and current clinical findings. Reliability of the PAP Test is enhanced by performing the test on a regular repetitive basis. ----- ------- Signed (signature on file) RACHAEL Zambrano (ASC) 02/10/25 1132 ----- ------- END OF REPORT us Amy SOL[facility] LAB CYTOLOGY ORDERABLES F inal Result [facility] [address] [place] [phone] * XR Ankle 3+ Views Right (01/10/2025 2:59 PM EDT) Anatomical Region Laterality Modality Lower Extremities, Ankle Right Radiogr aphic Imaging 01/10/2025 2:59 PM EDT Narrative 01/10/2025 4:03 PM EDT [address] [address] XRay Report Signed Patient: Nadira Cadet MR#: [id number] : 2005 Acct:[id number] Age/Sex: 19 / F ADM Date: 01/10/25 Loc: HO.CX Attending Dr: Belen Wallace MD Ordering Physician: Belen Kohler MD Date of Service: 01/10/25 Procedure(s): XR ankle RT min 3V Accession Number(s): [id number] cc: Belen Kohler MD Reason for Exam: [...] Junior MD in OV> 01/10/25 1600 DD/ 1459 TD/TT: 01/10/25 1459 Special Educator: Procedure Note Donotuseinterpreter, Image - 01/10/[address] [address] XRay Report Signed Patient: Nadira CadetR#: [id number] : 2005Acct:[id number] Age/Sex: 19 / FADM Date: 01/10/25 Loc: YASIRCX Attending Dr: Belen Wallace MD Ordering Physician: Belen Kohler MD Date of Service: 01/10/25 Procedure(s): XR ankle RT min 3V Accession Number(s): [id number] cc: Belen Kohler MD Reason for Exam: [...] OV> 01/10/25 1600 DD/ 58 TD/TT: 01/10/251458 Special Educator: us Belen Wallace MD IMG XR PROCEDURES Fin al Result * XR Foot 3+ Views Left (01/10/2025 2:57 PM EDT) Anatomical Region Laterality Modality Lower Extremities, Foot [facility] 01/10/2025 2:57 PM EDT Narrative 01/10/2025 4:03 [place] [address] XRay Report Signed Patient: Nadira Cadet MR#: [id number] : 2005 Acct:[id number] Age/Sex: 19 / F ADM Date: 01/10/25 Loc: HO.HHCX Attending Dr: Belen Wallace MD Ordering Physician: Belen Kohler MD Date of Service: 01/10/25 Procedure(s): XR foot LT min 3V Accession Number(s): [id number] cc: Belen Kohler MD Reason for Exam: [...] OV> 01/10/25 1600 DD/ 56 TD/TT: 01/10/251457 Special Educator: Procedure Note Donotuseinterpreter, Image - 01/10/[address] [address] XRay Report Signed Patient: Nadira Cadet#: [id number] : 2005Acct:[id number] Age/Sex: 19 / FADM Date: 01/10/25 Loc: HO.HHCX Attending Dr: Belen Wallace MD Ordering Physician: Belen Kohler MD Date of Service: 01/10/25 Procedure(s): XR foot LT min 3V Accession Number(s): [id number] cc: Belen Kohler MD Reason for Exam: [...] OV> 01/10/25 1600 DD/ 56 TD/TT: 01/10/251457 Special Educator: Belen Wallace MD IMG XR PROCEDURES Fin al Result * XR Ankle 3+ Views Left (01/10/2025 2:53 PM EDT) Anatomical Region Laterality Modality Lower Extremities, Ankle Left Radiogr aphic Imaging 01/10/2025 2:53 PM EDT Narrative 01/10/2025 4:02 PM EDT [address] [address] XRay Report Signed Patient: Nadira Cadet MR#: [id number] : 2005 Acct:[id number] Age/Sex: 19 / F ADM Date: 01/10/25 Loc: HO.CX Attending Dr: Belen Wallace MD Ordering Physician: Belen Kohler MD Date of Service: 01/10/25 Procedure(s): XR ankle LT min 3V Accession Number(s): [id number] cc: Belen Kohler MD Reason for Exam: [...] 01/10/25 1559 DD/ 1453 TD/TT: 01/10/25 1458 Special Educator: Procedure Note Donotnadirainterpreter, Image - 01/10/[address] [address] XRay Report Signed Patient: Nadira CadetR#: [id number] : 2005Acct:[id number] Age/Sex: 19 / FADM Date: 01/10/25 Loc: HO.HHCX Attending Dr: Belen Wallace MD Ordering Physician: Belen Kohler MD Date of Service: 01/10/25 Procedure(s): XR ankle LT min 3V Accession Number(s): [id number] cc: Belen Kohler MD Reason for Exam: [...] 01/10/25 1559 DD/ 1453 TD/TT: 01/10/25 1458 Special Educator: us Belen Wallace MD IMG XR PROCEDURES Fin al Result * Hepatitis C Antibody with Reflex to HCV, RNA, Quantitative, Real-Time PCR (04/13/2024 11:28 AM EST) Hepatitis C Antibody Nonreactive Nonreactive [facility] Comment:Antibodies to HCV no t detected; does not exclude early acuteHCV infection. Blood Venous blood specimen / Unknown 04/13/2024 11:28 AM EST 04/13/2024 1:05 PM EST us Nael Velasquez MD LAB BLOOD ORDERABLES Final Resu lt [facility] [place] [phone] [phone] * HIV-1/2 Antigen and Antibodies, Fourth Generation, with Reflexes (04/13/2024 11:28 AM EST) HIV AB/AG Nonreactive Nonreactive [facility] Comment:HIV-1 p24 Ag and/or HIV-1/HIV-2 Ab not detected.A test result that is nonreactive does not exclude thepossibility of exposure to or infection with HIV-1 and/orHIV-2. Nonreactive results in this assay for individualswith prior exposure to HIV-1 and/or HIV-2 may be due toantigen and antibody levels that are below the limit ofdetection of this assay.The [email or web address] HIV Ag/Ab Combo assay result andsupplemental assay results should be interpreted inconjunction with the patient's clinical presentation,history and other laboratory results. If the results areinconsistent with clinical evidence, additional testing issuggested to confirm the result. Blood Venous blood specimen / Unknown 04/13/2024 11:28 AM EST 04/13/2024 1:05 PM EST us Nael Velasquez MD LAB BLOOD ORDERABLES Final Resu lt [facility] [address] [place] [address] [phone] * Chlamydia/N. Gonorrhoeae RNA, TMA, Urogenitial (04/12/2024 4:22 PM EST) CT PCR NOT DETECTED Not Detect. [facility] Comment:A not detected test result does [...] psychologicalconsequences. NG PCR NOT DETECTED Not Detect. [facility] Comment:A not detected test result does [...] PM EST 04/13/2024 11:26 AM EST Narrative [facility] - 04/14/2024 4:48 AM EST Vaginal Nael Velasquez MD LAB MICROBIOLOGY - GENERAL DIANA MATTHEW Final Result [facility] [address] [place] [phone] * (ABNORMAL) Lipid Panel, Standard (08/11/2023 8:45 AM EDT) Triglycerides 50 <150 mg/dL [facility] Comment:Desirable Triglyceri de: less than 150 mg/dLBorderline High Triglyceride 150-199 mg/dLHigh Triglyceride: 200-499 mg/dLVery High Triglyceride: greater than or equal to 5OO mg/dL Cholesterol 135 <200 mg/dL [facility] Comment:Desirable Cholestero l: less than 200 mg/dLBorderline High Cholesterol: 200-239 mg/dLHigh Cholesterol: greater than 239 mg/dL LDL Cholesterol Calculated 87 <100 mg/dL [facility] Comment:Desirable LDL: less than 100 mg/dLNear Optimal/Above Optimal LDL: 110- 129 mg/dLBorderline High LDL: 130-159 mg/dLHigh LDL: 160-189 mg/dLVery High LDL: greater than or equal to 190 mg/dL HDL Cholesterol 38(L) >40 mg/dL [facility] Comment:Desirable HDL: great er than 40 mg/dL Note: This HDL assay may give artificially low results in patients with liver disease. Blood Venous blood specimen / Unknown 08/11/2023 8:45 AM EDT 08/11/2023 8:45 AM EDT Minerva Bailey MD LAB BLOOD ORDERABLES Final Result [facility] [address] [place] [phone] [phone] from Last 3 Months or Most Recently Relevant to Health Maintenance Insurance [employer] C3 Advance Directives Documents on File Type Date Recorded Patient Engine Builder Expl anation Advance Directives and Living Will 08/10/2023 Health Care Proxy 08/10/23 Care Teams Domestic Technician Relationship Specialty Start Date End Date Minerva Bailey MD [address] [place] [address] PCP - General Family Medicine 07/06/23 Emelia Alex RN [address] [place] [address] Registered Nurse Family Medicine 01/25/25 Shelia Mendes 01/25/25
--- OUTSIDE RECORDS SUMMARY | 2025-02-13 16:51 | XMS_ITS ---
Author Organization [employer] Address [address] [place] [address] 7 [place] [address] Care Team Providers Care Mobile Development Manager Name Role Phone Leo, Minerva PRESTON Primary Care Provider [phone]- [phone] Emelia Alex RN Unavailable [phone] Shelia Mendes Unavailable CHW Complex Status:Enrolled (Active) Start date:01/25/2025 Enrollment date:01/25/2025 Enrollment reason:ADT Feed Overview ED- Pt went to [facility] ED on 01/24/25. Please outreach to patient. Case Team Name Relationship Phone Shelia Mendes(Responsible Staff) Continued Care and Services Coordination
--- OUTSIDE RECORDS SUMMARY | 2025-02-13 16:51 | XMS_ITS | Encounter Summary ---
Author Organization [employer] Address [address] [facility] 7t [place] [address] Care Team Providers Care Pickle Water Pump Operator Name Role Phone Minerva Bailey MD Primary Care Provider [phone]- [phone] Emelia Alex RN Unavailable [phone] Shelia Mendes Unavailable Encounter Details Date Type Department Care Team (Latest Contact Info) Description 02/09/2025 Travel Social History Tobacco Use Types Packs/Day [...] with others, in a hotel, in a penitentiary, living outside on the street, on a [...] as of this encounter Plan of Treatment Not on file documented as of this encounter Visit Diagnoses Not on filedocumented in this encounter Additional Health Concerns Assessment Noted Time PHQ-9 Depression Total Score: 0 02/08/20 3:34 PM EST documented as of this encounter Care Teams Pickle Water Pump Operator Relationship Specialty Start Date End Date Minerva Bailey MD [address] [place] [address] PCP - General Family Medicine 07/06/23 Emelia Alex RN [address] [place] [address] Registered Nurse Family Medicine 01/25/25 Shelia Mendes 01/25/25 documented as of this encounter
--- OUTSIDE RECORDS SUMMARY | 2025-02-13 16:51 | XMS_ITS | Encounter Summary ---
Author Organization [facility] Address [address] [place] [address] Phone Care Team Providers Care Park Recreation Manager Name Role Phone Unavailable Primary Care Provider Unavailabl e Encounter Details Date Type Department Care Team (Late st Contact Info) Description 11/20/2016 Conversion Encounter [facility] - [address] [address] Social History Tobacco Use Types Packs/Day Years Used Date Smoking Tobacco: Never Assessed Comments Unknown Sex and Gender Information Value Date Recorded Sex Assigned at Not on file Legal Sex Female 4:11 PM EDT Gender Identity Not on file Sexual Orientation Not on file documented as of this encounter Plan of Treatment Not on file documented as of this encounter Visit Diagnoses Not on filedocumented in this encounter
--- OUTSIDE RECORDS SUMMARY | 2025-02-13 16:51 | XMS_ITS | Encounter Summary ---
Author Organization [employer] Address [address] [facility] 7t [place] [address] Care Team Providers Care Tobacco Baler Name Role Phone Minerva Bailey MD Primary Care Provider [phone]- [phone] Emelia Alex RN Unavailable [phone] Shelia Mendes Unavailable Encounter Details Date Type Department Care Team ([facility] st Contact Info) Description 02/08/2025 Patient Outreach [facility] [address] [place], [place] [phone] Minerva Bailey MD [address] [place] [address] Social History Tobacco Use Types Packs/Day Years [...] with others, in a hotel, in a half-way, living outside on the street, on a [...] PM EDT documented as of this encounter Progress Notes * Shelia Mendes - 02/08/2025 1:38 PM EST CHW Shelia Mendes documented in this encounter Plan of Treatment Not on file documented as of this encounter Visit Diagnoses Not on filedocumented in this encounter Additional Health Concerns Assessment Noted Time PHQ-9 Depression Total Score: 0 02/08/20 3:34 PM EST documented as of this encounter Care Teams Tobacco Baler Relationship Specialty Start Date End Date Minerva Bailey MD [address] [place] [address] PCP - General Family Medicine 07/06/23 Emelia Alex RN [address] [place] [address] Registered Nurse Family Medicine 01/25/25 Shelia Mendes 01/25/25 documented as of this encounter
--- OUTSIDE RECORDS SUMMARY | 2025-02-13 16:51 | XMS_ITS | Encounter Summary ---
Author Organization [employer] Address [address] [place] [address] 7t [place] [address] Care Team Providers Care Rope Cleaner Name Role Phone Minerva Bailey MD Primary Care Provider [phone]- [phone] Emelia Alex RN Unavailable [phone] Shelia Mendes Unavailable Reason for Visit * Reason Onset Date Comments New patient 02/04/2023 Encounter Details Date Type Department Care Team ([facility] st Contact Info) Description 02/04/2023 Telephone [facility] [address] [place] [address] Willie Mcclellan MD [address] [place], [place] [phone] New patient Social History Tobacco Use Types [...] been transfer over to wait list for ESCALATION ENGINEER. EFFECTIVE SINCE 02/04/2023 documented in this encounter Plan of Treatment Not on file documented as of this encounter Visit Diagnoses Not on filedocumented in this encounter Care Teams Rope Cleaner Relationship Specialty Start Date End Date Ida, MD Minerva [address] [place] [address] PCP - General Family Medicine 07/06/23 Emelia Alex RN [address] [place] [address] Registered Nurse Family Medicine 01/25/25 Shelia Mendes 01/25/25 documented as of this encounter
--- OUTSIDE RECORDS SUMMARY | 2025-02-13 16:51 | XMS_ITS | Clinical Summary ---
Author Organization [facility] Address [address] [place] [address] Phone Care Team Providers Care Life Skills Specialist Name Role Phone Unavailable Primary Care Provider Unavailabl e Immunizations Immunization Administration Dates Next Due DTaP 5 2003,2003,2003 Hep B, ped/adol 03/22/2004,2003,2003 Hib (HbOC) 10/15/2004,2003,2003 ,2003 IPV 03/22/2004,2003,2003 MMR 06/20/2004 Pneumococcal Conjugate 10/15/2004,2003,12/2003,2003 Varicella 06/20/2004 Family History Relation Name Status Comments Father Alive Father: Alive a nd well Maternal Grandmother Materna l aunt: Diabetes mellitus Mother Alive Mother: Alive a nd well Social History Tobacco Use Types Packs/Day Years Used Date Smoking Tobacco: Never Assessed Comments Unknown Sex and Gender Information Value Date Recorded Sex Assigned at Not on file Legal Sex Female 4:11 PM EDT Gender Identity Not on file Sexual Orientation Not on file Plan of Treatment Health Maintenance Due Date Last Done Comments IPV Vaccines (4 of 4 - 4-dose series) 2007 03/22/2004, 2003, 2003 Varicella Vaccines (2 of 2 - 2-dose childhood series) 2007 06/20/2004 HPV Vaccines (1 - 3-dose series) 06/09/2018 Men B Vaccine (1 of 2 - Standard) 2019 DTaP,Tdap,and Td Vaccines (4 - Tdap) 06/09/2021 2003, 2003, 2003 Influenza Vaccines (#1) 2024 COVID-19 Vaccine (1 - 2025-26 season) 2024 Hepatitis B Vaccines Completed 03/22/2004, 2003, 2003 MMR Vaccines Completed 06/20/2004 HIB Vaccines Completed 10/15/2004, 12/05, 2003, Additional history exists Pneumococcal Vaccine Completed 10/15/2004, 2003, 2003, Additional history exists Hepatitis A Vaccines Aged Out No long er eligible based on patient's age to complete this topic Meningococcal Vaccine Aged Out No bobby aissatou eligible based on patient's age to complete this topic
--- OUTSIDE RECORDS SUMMARY | 2025-02-13 16:51 | XMS_ITS | Clinical Summary ---
Author Organization [facility] Address [address] [place] [address] Care Team Providers Care Analytical Chemistry Teacher Name Role Phone Zohreh Nichols MD Primary Care Provider [phone] Source Comments PLEASE NOTE, if this patient is a minor, it may be UNLAWFUL to discuss sensitive information that is contained in these records (such as FAMILY PLANNING, MENTAL HEALTH or SUBSTANCE ABUSE) with the minor patient's parent or other person without the patient's specific authorization.[facility] Allergies No known active allergies Medications loratadine (CLARITIN) 5 mg/5 mL syrupIndications:A llergic rhinitis due to allergen Take 10 mL by mouth once daily. 300 mL 6 10/19/19 14 Active fluticasone (FLONASE) 50 mcg/actuation nasal sprayIndications:A llergic rhinitis due to allergen Place 1 [place] into the nostril(s) once daily. 16 g 3 10/19/19 14 Active triamcinolone (KENALOG) 0.1 % ointmentIndication s:Eczema Apply topically 3 (three) times daily. 60 g 3 10/19/19 14 Active permethrin (NIX) 1 % liquidIndications: Head lice Apply enough to saturate scalp and hair; leave in for 10 minutes and then rinse. Repeat in 10 days. 60 mL 1 01/09/20 15 Active ondansetron (ZOFRAN-ODT) 4 mg disintegrating tabletIndications: Gastroenteritis Take 1 Tab by mouth every 8 (eight) hours as needed for nausea. 20 Tab 0 02/01/20 15 Active acetaminophen (TYLENOL) 500 mg tabletIndications: Gastroenteritis Take 1 Tab by mouth every 6 (six) hours as needed for pain. 20 Tab 0 02/01/20 15 Active guanFACINE (TENEX) 1 mg tablet 5 01/02/20 15 Active fluoride, sodium, 1.1 % creaIndications:To oth sensitivity to cold [place] teeth with gel three times a day, Expectorate afterwards, do not rinse.. 100 g 3 12/02/19 25 Active Active Problems Problem Noted Date Diagnosed Date Allergic rhinitis 06/23/2014 H/O febrile seizure 06/16/2013 Left wrist fracture 06/16/2013 Overview (06/16/2013): 2010. Pneumonia 06/16/2013 Overview (06/16/2013): Hospitalized age 1 yrs. Encounters Date Type Department Care Team Description 12/01/2024 10:40 AM EDT Office Visit [facility]- [facility] [address] [facility] [place] [address] Toñito Sullivan 12/01/2024 Travel from Last 3 Months Immunizations Immunization Administration Dates Next Due DTAP (DAPTACEL),5 PERTUSSIS ANTIGENS ,10/20/2005,2003,10/12,2003 HEP B, PED/ADOL (ZVHVOJR-I-XSHS/RECOMBIVAX-PEDS) 03/22/2004,2003,2003 HPV, QUADRIVALENT 06/23/2014 Hep A, Ped/adol, 2 Dose 12/20/2007,12/15/2006 Hib (PRP-T) 10/15/2004, 4,2003,08/13 IPV (IPOL) 12/20/2007, 4,2003,08/13 MENINGOCOCCAL MCV4P (MENACTRA) 06/23/2014 MMR (MMR II/Priorix) 12/20/2007,06/20/2004 PNEUMOCOCCAL CONJUGATE PCV 7 10/15/2004, 2003,2003,08/13 TDAP 06/23/2014 Varicella (Varivax), Live Vaccine 12/20/2007, Social History Tobacco Use Types Packs/Day Years Used Date Smoking Tobacco: Every Day Cigarettes Smokeless Tobacco: Never Tobacco Cessation:Ready to Q uit: Not Asked; Counseling Given: Not Answered Comments No Sex and Gender Information Value Date Recorded Sex Assigned at Female 12/02/2024 6:29 AM PDT Legal Sex Female 11:36 AM PDT Gender Identity Female 12/01/2024 7:51 AM PDT Sexual Orientation Don't know 12/01/2024 7: 51 AM PDT Last Filed Vital Signs Vital Sign Reading Time Taken Comments Blood Pressure 97/67 12/01/2024 11:03 AM EDT Pulse 71 12/01/2024 11:03 AM EDT Temperature 38.2 C (100.8 F) 01/31/2015 1:34 PM EDT Respiratory Rate 18 01/31/2015 1:34 PM EDT Oxygen Saturation - - Inhaled Oxygen Concentration - - Weight 68.3 kg (150 lb 9.6 oz) 01/31/2015 1:34 P M EDT Height 163.2 cm (5' 4.25 ) 06/23/2014 9:46 AM ED T Body Mass Index - - Plan of Treatment Health Maintenance Due Date Last Done Comments Anxiety Screening 2003 Dental Prophy 2003 HPV Screening (self-collect) 2003 HPV Screening 2003 Pap + HPV 2003 Tobacco Cessation Counseling (#1) 2003 Chlamydia Screening 06/09/2016 Gonorrhea Screening 06/09/2016 Relationship Safety Screening/Counseling 06/09/2018 Alcohol and Drug Screen 04/06/2024 Depression Annual Screen 04/06/2024 Cervical Cancer Screening 06/09/2024 Pap Smear 06/09/2024 Imm-DTaP/Tdap/Td (7 - Td or Tdap) 06/23/2024 06/23/2014, 12/20/2007, 10/20/2005, Additional history exists Lav-DIWMG-12 ( season) 2024 07/06/2023, 04/26/2021, 04/05/2021 Imm-Influenza (#1) 2024 05/24/2021, 1 05/12/2017, 01/26/2017, Additional history exists Hypertension Screening (#1) 12/01/2027 Imm-Hepatitis B Completed 03/22/2004, 03/06, 2003, Additional history exists Imm-Hepatitis A Completed 12/20/2007, 12/15/2006 Imm-Varicella Completed 12/20/2007, 12/05, 06/20/2004, Additional history exists Imm-HPV Completed 03/07/2016, 06/23/2014 Imm-Pneumococcal Completed 07/06/2023, 03/2005, 10/15/2004, Additional history exists HIV Screening Completed 04/13/2024, 04/13/2024 Hepatitis C Screening Completed 04/13/2024 Cervical Ablation/Cold-Knife Conization Discontinued Cervical Cryotherapy Discontinued Colposcopy Discontinued Excision/Leep Discontinued HPV Genotyping Discontinued Vaginal Pap Discontinued Vulvoscopy Discontinued Procedures Procedure Name Priority Date/Time Associated Diagnosis Comments PANORAMIC RADIOGRAPHIC IMAGE Routine 12/01/2024 10:40 AM EDT Tooth sensitivity to cold [facility] 28 PALLIATIVE TREATMENT OF DENTAL PAIN - PER VISIT Routine 12/01/2024 10:40 AM EDT Tooth sensitivity to cold [facility] OTHER ORDERS SCANNED DOCUMENT 12/01/2024 3:00 AM EDT OTHER ORDERS SCANNED DOCUMENT 12/01/2024 3:00 AM EDT 31 MO AMALGAM - WISDOM (NON BILLABLE) Routine 12/01/2024 12:00 AM EDT 30 MOD AMALGAM - WISDOM (NON BILLABLE) Routine 12/01/2024 12:00 AM EDT 28 O COMPOSITE - WISDOM (NON BILLABLE) Routine 12/01/2024 12:00 AM EDT 21 DO COMPOSITE - WISDOM (NON BILLABLE) Routine 12/01/2024 12:00 AM EDT 20 MOD COMPOSITE - WISDOM (NON BILLABLE) Routine 12/01/2024 12:00 AM EDT 19 MOD COMPOSITE - WISDOM (NON BILLABLE) Routine 12/01/2024 12:00 AM EDT 18 MO COMPOSITE - WISDOM (NON BILLABLE) Routine 12/01/2024 12:00 AM EDT 14 MOD COMPOSITE - WISDOM (NON BILLABLE) Routine 12/01/2024 12:00 AM EDT 13 MOD COMPOSITE - WISDOM (NON BILLABLE) Routine 12/01/2024 12:00 AM EDT 12 DO COMPOSITE - WISDOM (NON BILLABLE) Routine 12/01/2024 12:00 AM EDT 11 MDL COMPOSITE - WISDOM (NON BILLABLE) Routine 12/01/2024 12:00 AM EDT 10 MDL COMPOSITE - WISDOM (NON BILLABLE) Routine 12/01/2024 12:00 AM EDT 9 MDF(V)L COMPOSITE - WISDOM (NON BILLABLE) Routine 12/01/2024 12:00 AM EDT 8 MDF(V)L COMPOSITE - WISDOM (NON BILLABLE) Routine 12/01/2024 12:00 AM EDT 7 MIDF COMPOSITE - WISDOM (NON BILLABLE) Routine 12/01/2024 12:00 AM EDT 6 M COMPOSITE - WISDOM (NON BILLABLE) Routine 12/01/2024 12:00 AM EDT 5 DO COMPOSITE - WISDOM (NON BILLABLE) Routine 12/01/2024 12:00 AM EDT 4 MODL COMPOSITE - WISDOM (NON BILLABLE) Routine 12/01/2024 12:00 AM EDT 3 MO COMPOSITE - WISDOM (NON BILLABLE) Routine 12/01/2024 12:00 AM EDT 29 O COMPOSITE - WISDOM (NON BILLABLE) Routine 12/01/2024 12:00 AM EDT 2 O COMPOSITE - WISDOM (NON BILLABLE) Routine 12/01/2024 12:00 AM EDT from Last 3 Months Results * OTHER ORDERS SCANNED DOCUMENT (12/01/2024 3:00 AM EDT) Only the most recent of2 resultswithin the time period is included. 12/01/2024 3:00 AM EDT [facility] Dental Team Pool [employer] SCAN OTHER ORDER S Final Result from Last 3 Months Insurance [employer] [place]ENT[place] Care Teams Analytical Chemistry Teacher Relationship Specialty Start Date End Date Zohreh Nichols MD [address] [place] [address] PCP - General Pediatrics 06/27/13
--- OUTSIDE RECORDS SUMMARY | 2025-02-13 16:51 | XMS_ITS ---
Author Organization [employer] Address [address] [place] [address] 7t [place] [address] Care Team Providers Care Contact Agent Name Role Phone Leo, Minerva PRESTON Primary Care Provider [phone]- [phone] Emelia Alex RN Unavailable [phone] Shelia Mendes Unavailable CM Complex Status:Outreach In Progress (Enrolling) Start date:01/25/2025 Enrollment reason:ADT Feed Overview ED- Pt went to [facility] ED on 01/24/25. Case Team Name Relationship Phone Emelia Alex RN(Responsible Staff) Registered Nurse Continued Care and Services Coordination
--- OUTSIDE RECORDS SUMMARY | 2025-02-13 16:51 | XMS_ITS | Encounter Summary ---
Author Organization [employer] Address [address] [facility] [address] 7t [place] [address] Care Team Providers Care Bulking Machine Operator Name Role Phone TallahatchieMinerva MD Primary Care Provider +- [phone] Emelia Alex RN Unavailable [phone] Shelia Mendes Unavailable Encounter Details Date Type Department Care Team ([facility] st Contact Info) Description 02/13/2025 Results Follow-Up [facility] [address] [place] [address] Kinsey Garcia CNM [address] [place] [address] Pap Smear Social History Tobacco Use Types Packs/Day Years [...] with others, in a hotel, in a [facility], living outside on the street, on a [...] documented as of this encounter Care Teams Bulking Machine Operator Relationship Specialty Start Date End Date Minerva Bailey MD [address] [place] [address] PCP - General Family Medicine 07/06/23 Emelia Alex RN [address] [place] [address] Registered Nurse Family Medicine 01/25/25 Shelia Mendes 01/25/25 documented as of this encounter
--- OUTSIDE RECORDS SUMMARY | 2025-02-13 16:51 | XMS_ITS | Encounter Summary ---
Author Organization [employer] Address [address] [facility] 7 [place] [address] Care Team Providers Care Appian Developer Name Role Phone Minerva Bailey MD Primary Care Provider [phone]- [phone] Emelia Alex RN Unavailable [phone] Shelia Mendes Unavailable Reason for Visit * Reason Comments Care Coordination C3 ANGELICA jimenez telephone call outreach Encounter Details Date Type Department Care Team (Latest Contact Info) Description 02/08/2025 Patient Outreach [facility] [address] [place] [address] Minerva Bailey MD [address] [place] [address] Care Coordination (C3 ANGELICA Mendes telephone call outreach) Social History Tobacco Use Types Packs/Day Years [...] Progress Notes * Shelia Mendes - 02/08/2025 2:40 PM EST CHW Shelia Mendes placed outbound call to patient in regards to rescheduling missed initial assessment appointment on 01/30/25 for Adult Complex Care program services. Patient's name and were confirmed. Initial Assessment appointment scheduled for 02/15/25 at 10:00 AM. CHW will set up an appointment reminder and will notify CM. CHW provided contact information of [phone] for any questions or concerns. CHW mailed out apartment applications documented in this encounter Plan of Treatment Not on file documented as of this encounter Visit Diagnoses Not on filedocumented in this encounter Additional Health Concerns Assessment Noted Time PHQ-9 Depression Total Score: 0 02/08/20 3:34 PM EST documented as of this encounter Care Teams Appian Developer Relationship Specialty Start Date End Date Minerva Bailey MD [address] [place] [address] PCP - General Family Medicine 07/06/23 Emelia Alex RN [address] [facility] [place] [address] Registered Nurse Family Medicine 01/25/25 Shelia Mendes 01/25/25 documented as of this encounter
--- OUTSIDE RECORDS SUMMARY | 2025-02-13 16:51 | XMS_ITS | Encounter Summary ---
Author Organization [employer] Address [address] [facility] [address] 7[address] [place] [address] Care Team Providers Care Salon/Spa Manager Name Role Phone Minerva Bailey MD Primary Care Provider [phone]- [phone] Emelia Alex RN Unavailable [phone] Shelia Mendes Unavailable Encounter Details Date Type Department Care Team ([facility] st Contact Info) Description 02/08/2025 Telephone [facility] [address] [place], [place] [phone] Zoey Clemons [place] Social History Tobacco Use Types Packs/Day Years [...] encounter Miscellaneous Notes * Telephone Encounter - Zoey Clemons MA - 02/08/2025 12:47 PM EST Chart Prep Labs: done Images: done Referrals: not applicable Vaccines due: Covid, Flu, and Tdap Screenings: pap smear Overdue care gaps: Not applicable documented in this encounter Plan of Treatment Not on file documented as of this encounter Visit Diagnoses Not on filedocumented in this encounter Additional Health Concerns Assessment Noted Time PHQ-9 Depression Total Score: 0 02/08/20 25 3:34 PM EST documented as of this encounter Care Teams Salon/Spa Manager Relationship Specialty Start Date End Date Minerva Bailey MD [address] [place] [address] PCP - General Family Medicine 07/06/23 Emelia Alex RN [address] [place] [address] Registered Nurse Family Medicine 01/25/25 Shelia Mendes 01/25/25 documented as of this encounter
== END 2025-02-13 14:31 | disposition home or self-care (01) ==
LOC: HO.LNP 14:30
PROVIDERS: Visit Provider Advanced Practice Midwife
DX: Z12.4 Encounter for screening for malignant neoplasm of cervix (principal)
CPT/HCPCS: 88175